=== PATIENT | female | born 1950 | race Caucasian/White ===

== ENCOUNTER 2020-03-16 08:48 | Outpatient (REF) | payer MEDICARE, SELFPAY ==
[2020-03-16 09:51] LABS: MANUAL DIFF FLAG NO
[2020-03-16 09:55] LABS: Basophils Absolute Auto 0.1 X10*3/uL (0.0-0.2); Basophils Percent Auto 0.8 % (0-2); Eosinophils Absolute Auto 0.4 X10*3/uL (0.0-0.4); Eosinophils Percent Auto 4.3 % (0-4); Hematocrit 41.6 % (37-47); Hemoglobin 13.6 g/dl (12.0-16.0); Imm Gran Abs Auto 0.05 X10*3/uL (0.00-0.03); Imm Gran Pct Auto 0.6 % (0.0-0.4); Lymphocytes Absolute Auto 2.1 X10*3/uL (1.2-4.9); Lymphocytes Percent Auto 23.5 % (20-40); Mean Corpuscular HGB Conc 32.7 g/dl (31.0-35.0); Mean Corpuscular Hemoglobin 28.3 pg (27.0-33.0); Mean Corpuscular Volume 86.5 fL (80-98); Mean Platelet Volume 8.8 fL (9.4-12.3); Monocytes Absolute Auto 0.6 X10*3/uL (0.1-1.2); Monocytes Percent Auto 6.2 % (2-11); Neutrophils Absolute Auto 5.8 X10*3/uL (2.0-8.3); Neutrophils Percent Auto 64.6 % (45-73); Platelet Count 414 X10*3/uL (160-400); Red Blood Count 4.81 X10*6/uL (4.20-5.50); Red Cell Distribution Width 13.7 % (11.0-16.0); White Blood Count 8.9 X10*3/uL (4.8-10.8)
[2020-03-16 10:24] LABS: Alanine Aminotransferase 21 U/L (0-31); Albumin Level 4.4 g/dL (3.5-5.0); Alkaline Phosphatase 84 U/L (39-117); Anion Gap 12 (12-20); Aspartate Amino Transferase 23 U/L (5-31); Bilirubin Total 0.5 mg/dL (0.0-1.0); Blood Urea Nitrogen 15 mg/dL (9-16); Calcium 9.9 mg/dL (8.4-10.2); Carbon Dioxide 31 mmol/L (22-29); Chloride 104 mmol/L (96-108); Cholesterol 206 mg/dL; Estimated Glomerular Filt Rate > 60; Glucose Random 107 mg/dL (60-115); HDL Cholesterol 48 mg/dL; LDL Cholesterol Calculated 139 mg/dl; Potassium 5.2 mmol/l (3.3-5.1); Sodium 142 mmol/L (135-145); Total Protein 7.4 g/dL (6.5-8.0); Triglycerides 97 mg/dL
[2020-03-16 10:58] LABS: Folate 12.1 ng/mL (> or = 4.0); Free T4 (Free Thyroxine) 1.15 ng/dL (0.71-1.85); Thyroid Stimulating Hormone 0.84 uIU/mL (0.32-4.0); Vitamin B12 651 pg/mL (200-900); Vitamin D 25-OH Total 12.9 ng/mL (>30)
== END 2020-03-16 08:49 | disposition home or self-care (01) ==
LOC: HO.LAB 08:48
PROVIDERS: Visit Provider Internal Medicine
DX: E78.00 Pure hypercholesterolemia, unspecified (principal)
CPT/HCPCS: 36415; 80053; 80061; 82306; 82607; 82746; 84439; 84443; 85025

== ENCOUNTER 2020-03-20 12:25 | Outpatient (REF) | payer MEDICARE, SELFPAY ==
--- NOTE | 2020-03-20 12:34 | XR_ITS ---
EXAMINATION: RIGHT KNEE PAIN CLINICAL INFORMATION: Pain COMPARISON: None TECHNIQUE: 4 views right knee FINDINGS: Bone alignment is normal. No fracture or dislocation is seen. There are degenerative changes of the medial femoral tibial joint with joint space narrowing and osteophyte formation. Joint spaces are otherwise normal. There is a small joint effusion. XR/XR shoulder RT min 2V IMPRESSION: Arthritis at the medial femoral tibial joint. EXAMINATION: Bilateral shoulder x-ray CLINICAL INFORMATION: Pain COMPARISON: None. TECHNIQUE: 4 views each shoulder FINDINGS: Right: Bone alignment is normal. No fracture or dislocation is seen. The glenohumeral joint is normal. There is mild arthritis at the acromioclavicular joint. Soft tissues are unremarkable. Left: Bone alignment is normal. No fracture or dislocation is seen. The glenohumeral joint is normal. There is mild arthritis at the acromioclavicular joint. Soft tissues are unremarkable. IMPRESSION: Mild arthritis at the bilateral acromioclavicular joints.
--- NOTE | 2020-03-20 12:34 | XR_ITS ---
EXAMINATION: RIGHT KNEE PAIN CLINICAL INFORMATION: Pain COMPARISON: None TECHNIQUE: 4 views right knee FINDINGS: Bone alignment is normal. No fracture or dislocation is seen. There are degenerative changes of the medial femoral tibial joint with joint space narrowing and osteophyte formation. Joint spaces are otherwise normal. There is a small joint effusion. XR/XR shoulder LT min 2V IMPRESSION: Arthritis at the medial femoral tibial joint. EXAMINATION: Bilateral shoulder x-ray CLINICAL INFORMATION: Pain COMPARISON: None. TECHNIQUE: 4 views each shoulder FINDINGS: Right: Bone alignment is normal. No fracture or dislocation is seen. The glenohumeral joint is normal. There is mild arthritis at the acromioclavicular joint. Soft tissues are unremarkable. Left: Bone alignment is normal. No fracture or dislocation is seen. The glenohumeral joint is normal. There is mild arthritis at the acromioclavicular joint. Soft tissues are unremarkable. IMPRESSION: Mild arthritis at the bilateral acromioclavicular joints.
--- NOTE | 2020-03-20 12:34 | XR_ITS ---
EXAMINATION: RIGHT KNEE PAIN CLINICAL INFORMATION: Pain COMPARISON: None TECHNIQUE: 4 views right knee FINDINGS: Bone alignment is normal. No fracture or dislocation is seen. There are degenerative changes of the medial femoral tibial joint with joint space narrowing and osteophyte formation. Joint spaces are otherwise normal. There is a small joint effusion. XR/XR knee RT 2V IMPRESSION: Arthritis at the medial femoral tibial joint. EXAMINATION: Bilateral shoulder x-ray CLINICAL INFORMATION: Pain COMPARISON: None. TECHNIQUE: 4 views each shoulder FINDINGS: Right: Bone alignment is normal. No fracture or dislocation is seen. The glenohumeral joint is normal. There is mild arthritis at the acromioclavicular joint. Soft tissues are unremarkable. Left: Bone alignment is normal. No fracture or dislocation is seen. The glenohumeral joint is normal. There is mild arthritis at the acromioclavicular joint. Soft tissues are unremarkable. IMPRESSION: Mild arthritis at the bilateral acromioclavicular joints.
--- NOTE | 2020-03-20 12:38 | US_ITS ---
EXAMINATION: US VENOUS ULTRASOUND WITH DOPPLER LOWER EXTREMITY, RIGHT CLINICAL INFORMATION: Swelling. COMPARISON: None. TECHNIQUE: Ultrasound of the deep veins is performed from the hip to the calf with compression sonography and color and pulse Doppler assessment. Spectral analysis with color-flow imaging is performed. FINDINGS: There is normal venous compression and respiratory variation and augmented flow. The visualized common femoral vein, superficial femoral vein, profunda femoral vein, popliteal vein, and the trifurcation region shows no evidence of deep venous thrombosis. There is no significant popliteal fossa cyst. US/US venous duplex LE RT IMPRESSION: No DVT demonstrated in the right lower extremity.
== END 2020-03-20 12:26 | disposition home or self-care (01) ==
LOC: HO.US 12:25
PROVIDERS: PCP Internal Medicine; Visit Provider Internal Medicine
DX: M25.511 Pain in right shoulder (principal); M25.512 Pain in left shoulder; M25.561 Pain in right knee; R09.89 Other specified symptoms and signs involving the circulatory and respiratory systems
CPT/HCPCS: 73030; 73560; 93971

== ENCOUNTER 2020-03-27 10:25 | Outpatient (REF) | payer MEDICARE, SELFPAY ==
--- NOTE | 2020-03-27 10:29 | MM_ITS ---
EXAMINATION: MM SCREENING DIGITAL BREAST TOMOSYNTHESIS, LEFT CLINICAL INFORMATION: Remote right mastectomy 1998. Due for yearly exam. COMPARISON: Mammography: 03/22/2019, 03/03/2018, 02/07/2017 TECHNIQUE: Digital breast tomosynthesis is performed in both the craniocaudal and mediolateral oblique views along with computer-aided detection (CAD). Synthesized 2D images are generated from the tomosynthesis. Additional exaggerated CC view is provided. FINDINGS: There are scattered areas of fibroglandular density (ACR BI-RADS breast composition Category b). There are no significant masses, abnormal calcifications, or other abnormalities. Parenchymal pattern similar to prior exams. No significant changes. MM/MM tomosynthesis screening LT IMPRESSION: No mammographic evidence of malignancy. ASSESSMENT: BI-RADS 1: Negative RECOMMENDATION: Routine annual mammography screening. This patient's information was entered into a reminder system with a target due date for their next mammogram.
== END 2020-03-27 10:26 | disposition home or self-care (01) ==
LOC: HO.MAMMO 10:25
PROVIDERS: PCP Internal Medicine; Visit Provider Internal Medicine
DX: Z12.31 Encounter for screening mammogram for malignant neoplasm of breast (principal); Z90.11 Acquired absence of right breast and nipple
CPT/HCPCS: 77067

== ENCOUNTER 2020-10-26 09:01 | Outpatient (REF) | payer MEDICARE, SELFPAY ==
[2020-10-26 10:01] LABS: MANUAL DIFF FLAG NO
[2020-10-26 10:10] LABS: Basophils Absolute Auto 0.1 X10*3/uL (0.0-0.2); Basophils Percent Auto 0.7 % (0-2); Eosinophils Absolute Auto 0.3 X10*3/uL (0.0-0.4); Eosinophils Percent Auto 3.4 % (0-4); Hematocrit 42.9 % (37-47); Hemoglobin 13.7 g/dl (12.0-16.0); Imm Gran Abs Auto 0.05 X10*3/uL (0.00-0.03); Imm Gran Pct Auto 0.6 % (0.0-0.4); Lymphocytes Absolute Auto 2.4 X10*3/uL (1.2-4.9); Mean Corpuscular HGB Conc 31.9 g/dl (31.0-35.0); Mean Corpuscular Hemoglobin 27.3 pg (27.0-33.0); Mean Corpuscular Volume 85.6 fL (80-98); Mean Platelet Volume 9.1 fL (9.4-12.3); Monocytes Absolute Auto 0.5 X10*3/uL (0.1-1.2); Monocytes Percent Auto 6.1 % (2-11); Neutrophils Absolute Auto 5.2 X10*3/uL (2.0-8.3); Neutrophils Percent Auto 61.2 % (45-73); Platelet Count 415 X10*3/uL (160-400); Red Blood Count 5.01 X10*6/uL (4.20-5.50); Red Cell Distribution Width 13.8 % (11.0-16.0); White Blood Count 8.4 X10*3/uL (4.8-10.8)
[2020-10-26 10:37] LABS: Alanine Aminotransferase 26 U/L (0-31); Albumin Level 4.3 g/dL (3.5-5.0); Alkaline Phosphatase 85 U/L (39-117); Anion Gap 14 (12-20); Aspartate Amino Transferase 29 U/L (5-31); Bilirubin Total 0.6 mg/dL (0.0-1.0); Blood Urea Nitrogen 11 mg/dL (9-16); Calcium 10.4 mg/dL (8.4-10.2); Carbon Dioxide 26 mmol/L (22-29); Chloride 104 mmol/L (96-108); Cholesterol 228 mg/dL; Estimated Glomerular Filt Rate > 60; Glucose Random 105 mg/dL (60-115); HDL Cholesterol 44 mg/dL; LDL Cholesterol Calculated 159 mg/dl; Sodium 139 mmol/L (135-145); Total Protein 7.2 g/dL (6.5-8.0); Triglycerides 129 mg/dL
[2020-10-26 10:59] LABS: Free T4 (Free Thyroxine) 1.11 ng/dL (0.71-1.85)
[2020-10-26 11:06] LABS: Folate 16.9 ng/mL (> or = 4.0); Vitamin B12 622 pg/mL (200-900)
== END 2020-10-26 09:02 | disposition home or self-care (01) ==
LOC: HO.LAB 09:01
PROVIDERS: PCP Internal Medicine; Visit Provider Internal Medicine
DX: E78.00 Pure hypercholesterolemia, unspecified (principal)
CPT/HCPCS: 36415; 80053; 80061; 82306; 82607; 82746; 84439; 84443; 85025

== ENCOUNTER 2021-08-08 09:24 | Outpatient (REF) | payer MEDICARE, SELFPAY ==
--- NOTE | ~2021-08-08 | MM_ITS ---
EXAMINATION: BONE DENSITOMETRY CLINICAL INDICATION: Other specified disorders of bone density and structure. COMPARISON: Previous BD dated 02/16/2019 and baseline BD dated 02/07/2012. TECHNIQUE: Using a [employer] DXA System (software version: 13.1) manufactured by [employer], dual-energy x-ray absorptiometry was performed of the lumbar spine and left hip. The images are of good technical quality. Summary results are attached. FINDINGS: AP SPINE L1-L4: Current: BMD 1.004 g/cm2, Z-score 0.0, T-score -1.5, osteopenia, 1.8% increase from previous, 1.3% increase from baseline (<5% change is not significant). Prior: BMD 0.986 g/cm2. Baseline: BMD 0.991 g/cm2. LEFT FEMUR, NECK: Current: BMD 0.716 g/cm2, Z-score -0.7, T-score -2.3, osteopenia. Prior: BMD 0.806 g/cm2. Baseline: BMD 0.815 g/cm2. LEFT FEMUR, TOTAL: Current: BMD 0.763 g/cm2, Z-score -0.5, T-score -1.9, osteopenia, 11.8% decrease from previous, 12.1% decrease from baseline (<5% change is not significant). Prior: BMD 0.865 g/cm2. Baseline: BMD 0.868 g/cm2. IDENTIFIED RISK FACTORS: Height loss, menopause. HISTORY OF FRACTURE: None listed. MEDICATIONS: Calcium supplements or multivitamin, vitamin D, ERT/SERMS. MM/XR DEXA axial skeleton IMPRESSION: 1. DIAGNOSIS: Osteopenia based on the lowest T-score value of -2.3 in the femoral neck applying World Health Organization criteria. 2. 10-YEAR FRACTURE RISK PREDICTION, FRAX: Major osteoporotic fracture (clinical spine, forearm, hip or shoulder) 14.0%. Hip fracture 3.5%. 3. Treatment Recommendations: NOF guidelines recommend consideration for treatment in postmenopausal women and men age 50 and older presenting with the following: -A hip or vertebral (clinical or morphometric) fracture. -T-score less than or equal to -2.5 at the femoral neck or spine after appropriate evaluation to exclude secondary causes. -Low bone mass at the hip or spine and a 10-year fracture probability by FRAX of greater than or equal to 3% for hip fracture or greater than or equal to 20% for major osteoporotic fracture based on the [place] adapted WHO algorithm. 4. Other Recommendations: All treatment decisions require clinical judgment and consideration of individual patient factors, including patient preferences, comorbidities, previous drug use, risk factors not captured in the FRAX model (e.g. frailty, falls, vitamin D deficiency, increased bone turnover, interval significant decline in bone density) and possible under or overestimation of fracture risk by FRAX. Additional medical evaluation for secondary cause of low bone mineral density may be appropriate. FUTURE SCAN RECOMMENDATION: People with diagnosed cases of osteoporosis or at high risk for fracture should have regular bone mineral density tests. For patients eligible for Medicare, routine testing is allowed once every 2 years. The testing frequency can be increased to one year for patients who have rapidly progressing disease, those who are receiving or discontinuing medical therapy to restore bone mass, or have additional risk factors.
--- NOTE | ~2021-08-08 | MM_ITS ---
EXAMINATION: MM SCREENING DIGITAL BREAST TOMOSYNTHESIS, LEFT CLINICAL INFORMATION: Due for yearly. Screening. Prior history right mastectomy, 1998. COMPARISON: Mammography: 03/27/2020, 03/22/2019, 03/03/2018 TECHNIQUE: Digital breast tomosynthesis is performed in both the craniocaudal and mediolateral oblique views along with computer-aided detection (CAD). Synthesized 2D images are generated from the tomosynthesis. Additional exaggerated left CC view is provided. FINDINGS: There are scattered areas of fibroglandular density (ACR BI-RADS breast composition Category b). There are no significant masses, abnormal calcifications, or other abnormalities. No developing density or architectural abnormality or significant change from prior exams. MM/MM tomosynthesis screening LT IMPRESSION: No mammographic evidence of malignancy. ASSESSMENT: BI-RADS 1: Negative RECOMMENDATION: Routine annual mammography screening. This patient's information was entered into a reminder system with a target due date for their next mammogram.
== END 2021-08-08 09:25 | disposition home or self-care (01) ==
LOC: HO.MAMMO 09:24
PROVIDERS: PCP Internal Medicine; Visit Provider Internal Medicine
DX: Z12.31 Encounter for screening mammogram for malignant neoplasm of breast (principal); Z90.11 Acquired absence of right breast and nipple; M85.80 Other specified disorders of bone density and structure, unspecified site; R29.890 Loss of height; Z78.0 Asymptomatic menopausal state; Z79.810 Long term (current) use of selective estrogen receptor modulators (SERMs)
CPT/HCPCS: 77063; 77067; 77080

== ENCOUNTER 2021-08-17 07:26 | Outpatient (REF) | payer MEDICARE, SELFPAY ==
--- NOTE | ~2021-08-17 | XR_ITS ---
EXAMINATION: XR CHEST CLINICAL INFORMATION: Shortness of breath COMPARISON: Previous chest x-ray May 2008 TECHNIQUE: 2 views of the chest were obtained. FINDINGS: No significant abnormality is noted involving the heart, lungs, mediastinum, bony thorax or soft tissues. XR/XR chest 2V IMPRESSION: Unremarkable examination.
[2021-08-17 07:45] LABS: MANUAL DIFF FLAG NO
--- NOTE | 2021-08-17 07:46 | ECG_ITS ---
Test Reason : R06.02 SOB Blood Pressure : / mmHG Vent. Rate : 089 BPM Atrial Rate : 089 BPM P-R Int : 172 ms QRS Dur : 088 ms QT Int : 384 ms P-R-T Axes : 068 -09 145 degrees QTc Int : 467 ms Normal sinus rhythm Septal infarct , age undetermined Nonspecific ST abnormality Abnormal ECG When compared with ECG of 13-JUN-2011 07:38, Nonspecific T wave abnormality, worse in Lateral leads Referred By: Rolo Richards Electronically Signed By:RAMESH PINA MD
[2021-08-17 08:19] LABS: Basophils Absolute Auto 0.1 X10*3/uL (0.0-0.2); Basophils Percent Auto 0.9 % (0-2); Eosinophils Absolute Auto 0.4 X10*3/uL (0.0-0.4); Eosinophils Percent Auto 4.8 % (0-4); Hematocrit 39.4 % (37.0-47.0); Hemoglobin 12.9 g/dl (12.0-16.0); Imm Gran Abs Auto 0.04 X10*3/uL (0.00-0.03); Imm Gran Pct Auto 0.5 % (0.0-0.4); Lymphocytes Absolute Auto 2.6 X10*3/uL (1.2-4.9); Lymphocytes Percent Auto 33.2 % (20-40); Mean Corpuscular HGB Conc 32.7 g/dl (31.0-35.0); Mean Corpuscular Hemoglobin 28.1 pg (27.0-33.0); Mean Corpuscular Volume 85.8 fL (80.0-98.0); Mean Platelet Volume 8.9 fL (9.4-12.3); Monocytes Absolute Auto 0.5 X10*3/uL (0.1-1.2); Monocytes Percent Auto 6.1 % (2-11); Neutrophils Absolute Auto 4.3 x10*3/uL (2.0-8.3); Neutrophils Percent Auto 54.5 % (45-73); Platelet Count 363 X10*3/uL (160-400); Red Blood Count 4.59 X10*6/uL (4.20-5.50); Red Cell Distribution Width 13.9 % (11.0-16.0); White Blood Count 7.9 X10*3/uL (4.8-10.8)
[2021-08-17 08:22] LABS: Estimated Average Glucose 114 mg/dL; Hemoglobin A1c % 5.6 %
[2021-08-17 08:38] LABS: Alanine Aminotransferase 19 U/L (0-31); Alkaline Phosphatase 74 U/L (39-117); Anion Gap 12 (12-20); Aspartate Amino Transferase 20 U/L (5-31); Bilirubin Total 0.4 mg/dL (0.0-1.0); Blood Urea Nitrogen 14 mg/dL (9-16); Calcium 9.7 mg/dL (8.4-10.2); Carbon Dioxide 27 mmol/L (22-29); Chloride 107 mmol/L (96-108); Cholesterol 208 mg/dL; Estimated Glomerular Filt Rate > 60; Glucose Random 101 mg/dL (60-115); HDL Cholesterol 45 mg/dL; LDL Cholesterol Calculated 148 mg/dl; Potassium 4.3 mmol/L (3.3-5.1); Sodium 142 mmol/L (135-145); Triglycerides 76 mg/dL
[2021-08-17 08:45] LABS: B Type Natriuretic Peptide 39 pg/mL (<100)
[2021-08-17 08:58] LABS: Free T4 (Free Thyroxine) 1.05 ng/dL (0.71-1.85); Thyroid Stimulating Hormone 1.46 uIU/mL (0.32-4.0)
[2021-08-17 09:50] LABS: Folate 17.5 ng/mL (> or = 4.0); Vitamin B12 561 pg/mL (200-900)
== END 2021-08-17 07:27 | disposition home or self-care (01) ==
LOC: HO.XRAY 07:26
PROVIDERS: PCP Internal Medicine; Visit Provider Internal Medicine
DX: R06.02 Shortness of breath (principal); E78.00 Pure hypercholesterolemia, unspecified; R73.02 Impaired glucose tolerance (oral)
CPT/HCPCS: 36415; 71046; 80053; 80061; 82607; 82746; 83036; 83880; 84439; 84443; 85025; 93005

== ENCOUNTER 2022-08-15 11:23 | Outpatient (REF) | payer MEDICARE, SELFPAY ==
--- NOTE | ~2022-08-15 | MM_ITS ---
EXAMINATION: MM SCREENING DIGITAL BREAST TOMOSYNTHESIS, LEFT CLINICAL INFORMATION: Screening. Asymptomatic. Status post right mastectomy. COMPARISON: Mammography: 08/08/2021 and studies dating back to 12/08/2013. TECHNIQUE: Digital breast tomosynthesis is performed in both the craniocaudal and mediolateral oblique views along with computer-aided detection (CAD). Synthesized 2D images are generated from the tomosynthesis. FINDINGS: The breasts are heterogeneously dense, which may obscure small masses (ACR BI-RADS breast composition Category c). About the inferior aspect of the left breast, approximately 3 cm from the nipple, there is an oblong circumscribed density increasing in size measuring approximately 8 x 4 x 4 mm in size, for which spot compression views and possible ultrasound are recommended. MM/MM tomosynthesis screening LT IMPRESSION: Left breast density for further evaluation. ASSESSMENT: BI-RADS 0: Incomplete - Need additional imaging evaluation. RECOMMENDATION: 1. Additional views of the left breast. 2. Targeted ultrasound if warranted after review of the additional views. 3. Radiology department staff will contact the patient for additional imaging. This patient's information was entered into a reminder system with a target due date for their next mammogram.
== END 2022-08-15 11:24 | disposition home or self-care (01) ==
LOC: HO.MAMMO 11:23
PROVIDERS: PCP Internal Medicine; Visit Provider Internal Medicine
DX: Z12.31 Encounter for screening mammogram for malignant neoplasm of breast (principal)
CPT/HCPCS: 77063; 77067

== ENCOUNTER 2022-09-20 12:49 | Outpatient (REF) | payer MEDICARE, SELFPAY ==
--- NOTE | ~2022-09-20 | MM_ITS ---
EXAMINATION: MM DIAGNOSTIC DIGITAL BREAST TOMOSYNTHESIS, LEFT US DIAGNOSTIC ULTRASOUND BREAST, LEFT CLINICAL INFORMATION: Recall from screening for oval nodule anterior 6:00 left breast under 1 cm. Personal history remote contralateral right mastectomy, 1998. Family history breast cancer mother, sister. COMPARISON: Prior mammography exams including most recent 08/15/2022. TECHNIQUE: Digital breast tomosynthesis is performed. 2D images are generated from the tomosynthesis. The following views are obtained: Spot CC, spot MLO. Ultrasound left breast is targeted to the inferior breast using grayscale imaging and color Doppler without and with harmonics. FINDINGS: There are scattered areas of fibroglandular density (ACR BI-RADS breast composition Category b). The additional views confirm benign-appearing smooth oval nodule anterior 6:00 left breast. In retrospect, finding appears chronic, slightly increased in size over several years. Ultrasound demonstrates circumscribed anechoic cyst 7 x 4 mm 6:30 position, 3 cm from nipple. There is increased through-transmission of sound on real-time imaging and no associated color flow. There is no other cystic or solid mass. No architectural abnormality. Results are discussed with the patient at time of visit. MM/MM tomosynthesis added views L IMPRESSION: Cyst anterior inferior left breast under 1 cm corresponding to recent mammography. ASSESSMENT: BI-RADS 2: Benign RECOMMENDATION: Routine annual mammography screening. This patient's information was entered into a reminder system with a target due date for their next mammogram.
== END 2022-09-20 12:50 | disposition home or self-care (01) ==
LOC: HO.MAMMO 12:49
PROVIDERS: PCP Internal Medicine; Visit Provider Internal Medicine
DX: R92.2 Inconclusive mammogram (principal)
CPT/HCPCS: 76642; 77061; 77065

== ENCOUNTER 2022-10-03 17:46 | Emergency (ER) | payer MEDICARE, SELFPAY ==
[2022-10-03 17:53] VITALS: BP 190/102; PULSE 100; RESP 18; TEMP 36.7; O2SAT 98; BMI 29.3
--- NOTE | 2022-10-03 17:54 | ED.GENADULT ---
HPI - General Adult General Chief complaint: General Medical Stated complaint: High BP sent by urgent care Time Seen by Provider: 10/03/22 19:50 Source: patient and other (friend) Mode of arrival: ambulatory Limitations: no limitations History of Present Illness HPI narrative: 71 yo female hx of pre-HTN BP range 140/80 but not on medications - fell on Friday went to [facility] has R wrist injury and nasal bone fracture - CT head and face no ICH. She notes some mild pain since then but not severe. She went to the orthopedics office today and they found elevated HTN - no numbness, weakness, headaches, vision changes or chest pain. SHe states she had no clue until they told her. MD complaint: elevated BP asymptomatic in ortho office Onset (ago): unknown Severity: mild Pain Consistency: constant Relieving factors: none Exacerbating factors: none Associated symptoms: denies other symptoms Treatments prior to arrival: none Related Data Home Medications Medication Instructions Recorded Confirmed biotin 2,500 mcg capsule 2,500 mcg PO DAILY 05/04/21 01/23/22 cholecalciferol (vitamin D3) 25 25 mcg PO DAILY 01/23/22 01/23/22 mcg (1,000 unit) capsule relief factor 1 cap PO .QD 01/23/22 Previous Rx's Medication Instructions Recorded amoxicillin 500 mg-potassium 1 tab PO Q12H #14 tabs 01/23/22 clavulanate 125 mg tablet (Augmentin) raloxifene 60 mg tablet 60 mg PO DAILY #90 tabs 04/06/22 amlodipine 10 mg tablet 10 mg PO DAILY #30 tabs 10/03/22 Allergies Allergy/AdvReac Type Severity Reaction Status Date / Time Sulfa (Sulfonamide Allergy Unknown NKNOWN Verified 01/23/22 09:13 Antibiotics) [SULFA(SULFONAMIDE ANTIBIOTICS)] Review of Systems Review of Systems: Constitutional : No Fever, No Chills, No Fatigue ENT/Mouth : No sore throat, No Rhinorrhea Eyes: No Eye Pain, No Swelling, No Redness Cardiovascular : No Chest Pain, No SOB, No Dyspnea on Exertion Respiratory : No Cough, No Sputum Gastrointestinal : No Nausea, No Vomiting, No Diarrhea, No abdominal Pain Genitourinary : No Dysuria, No Urinary Frequency, No Hematuria, Musculoskeletal : No joint pain, No Myalgias, No Joint Swelling Skin : No Skin Lesions, No rash Neuro : No Weakness, No Numbness, No Dizziness, no Headache Psych : No Anxiety/Panic, No Depression Heme/Lymph: No Bruising, No Bleeding,No Lymphadenopathy Endocrine : No Polyuria, No Polydipsia All other systems reviewed and are negative COUNT INCLUDES THE [facility] Past Medical History Attestation statement: The following information was validated with the patient. Source: old records reviewed Medical History Alopecia History of breast cancer Hypercholesterolemia Impaired glucose tolerance Knee pain, right Medicare annual wellness visit, initial Osteopenia Overweight (BMI 25.0-29.9) Pituitary adenoma Shoulder pain, bilateral Tubular adenoma of colon Surgical History H/O right mastectomy History of arthroscopy of right knee History of cataract surgery History of cholecystectomy History of colonoscopy History of orthopedic surgery History of surgery Family History Family History (Updated 03/13/20 @ 10:12 by Giselle Escalera [facility]) Father Dementia Alcoholism Mother Congenital heart disease Cancer Sister Breast cancer Sister CAD (coronary artery disease) Social History Social History Housing: House Alcohol intake: current Alcohol intake frequency: holidays/special occasions only Patient Tobacco Use Status: Former Tobacco user Tobacco use type: Cigarette Years Smoked: quit 1997 Smoked in Last 30 Days: No e-Cigarette/Vaping Use: Never Used Second Hand Smoke Exposure: No Advance Directives: Yes Advance Directives on File: Yes Advance Directives Date on File: 05/14/21 Current occupational status: retired Cognitive needs: No Hearing needs: No Vision needs: Yes Physical Exam ED Vital Signs: Vital Signs - 24 hr 10/03/22 17:53 10/03/22 19:43 Temperature 98.1 F Pulse Rate 100 91 Respiratory Rate 18 14 Blood Pressure 190/102 H 185/101 H Pulse Oximetry 98 98 Oxygen Delivery Method Room Air BMI result Body Mass Index 29.3 Appearance: Alert. Oriented X3. No acute distress. Eyes: Pupils equal, round and reactive to light. ENT: Pharynx normal. small contusion to nasal bridge Neck: Normal inspection. Neck supple. CVS: Normal heart rate and rhythm. Pulses normal. Respiratory: No respiratory distress. Breath sounds normal. Abdomen: Soft and nontender. Skin: Skin warm and dry. Normal skin color. Normal skin turgor. Extremities: No lower extremity edema. R wrist in splint Neuro: Oriented X 3. No motor deficit. No sensory deficit. Course Course Course Narrative: This is an RME: Additional HPI, ROS, PE not included below will be deferred to primary provider. This is a [id number]-[id number]-female, no known diagnosis of hypertension, presenting to the ER for elevated blood pressure readings. Patient states on Friday she was seen at [facility] after a fall where she struck her head. She was seen at [facility] where she had head and neck imaging per patient, and xrays or her hand/wrist - told she fractured her right wrist. She was seen at the Orthopedics office and was told that her blood pressure was high. Patient denies any chest pain or shortness on breath. She admits to having headache but reports that this has been constant since her fall on Friday. Plan: Basic labs ordered. Reevaluation(s) Reevaluation #1: increased amlodipine to 10mg - continued to observe, really treating asymptomatic HTN- patient aware will go home and follow up with PCP Reevaluation #2: BP 183/99 - stable for DC Medications Administered Discontinued Medications Generic Name Dose Route Start Last Admin Trade Name Freq PRN Reason Stop Dose Admin Amlodipine Besylate 5 mg 10/03/22 20:11 10/03/22 20:31 Amlodipine Besylate 5 Mg Tablet PO 10/03/22 20:12 5 mg ONCE ONE Administration Protocol Amlodipine Besylate 5 mg 10/03/22 21:19 10/03/22 21:46 Amlodipine Besylate 5 Mg Tablet PO 10/03/22 21:20 5 mg ONCE ONE Administration Protocol Medical Decision Making Medical Decision Making [facility] Narrative: 71 yo female sent here from office for asymptomatic HTN - she has no chest pain, headache, neuro deficits I do not suspect end organ damage though she relays to me nromal BP is 140/80. at this time will start on 5mg amlodipine and obtain basic labs and EKG, she can follow up with her PCP Differential Diagnosis Differential Diagnoses: The differential diagnosis associated with the presentation includes asymptomatic HTN, renal failure Lab Data [facility] Lab Attestation statement: I reviewed the patient's lab results. 10/03/22 18:06 10/03/22 18:06 Labs: Lab Results 10/03/22 10/03/22 Range/Units 18:06 18:06 WBC 10.7 (4.8-10.8) X10*3/uL RBC 4.77 (4.20-5.50) X10*6/uL Hgb 13.6 (12.0-16.0) g/dl Hct 41.1 (37.0-47.0) % MCV 86.2 (80.0-98.0) fL MCH 28.5 (27.0-33.0) pg MCHC 33.1 (31.0-35.0) g/dl RDW 13.5 (11.0-16.0) % Plt Count 376 (160-400) X10*3/uL MPV 8.9 L (9.4-12.3) fL Immature Gran % (Auto) 0.5 H (0.0-0.4) % Neut % (Auto) 66.1 (45-73) % Lymph % (Auto) 24.7 (20-40) % [place] % (Auto) 5.4 (2-11) % Eos % (Auto) 2.6 (0-4) % Baso % (Auto) 0.7 (0-2) % Lymph # (Auto) 2.7 (1.2-4.9) X10*3/uL [place] # (Auto) 0.6 (0.1-1.2) X10*3/uL Eos # (Auto) 0.3 (0.0-0.4) X10*3/uL Baso # (Auto) 0.1 (0.0-0.2) X10*3/uL Abs Immat Gran (auto) 0.05 H (0.00-0.03) X10*3/uL Absolute Neuts (auto) 7.1 (2.0-8.3) x10*3/uL Absolute Nucleated RBC 0.000 (0.0-0.012) X10*3/uL Nucleated RBC % (auto) 0.0 (0.0-0.2) /100WBC Sodium 142 (135-145) mmol/L Potassium 4.3 (3.3-5.1) mmol/L Chloride 106 (96-108) mmol/L Carbon Dioxide 26 (22-29) mmol/L Anion Gap 14 (12-20) BUN 11 (9-16) mg/dL Creatinine 0.81 (0.5-1.4) mg/dL Estim Creat Clear Calc 58.5 Estimated GFR > 60 Random Glucose 105 (60-115) mg/dL Calcium 10.2 (8.4-10.2) mg/dL Total Bilirubin 0.5 (0.0-1.0) mg/dL Direct Bilirubin 0.1 (0.0-0.5) mg/dL AST 22 (5-31) U/L ALT 17 (0-31) U/L Alkaline Phosphatase 82 (39-117) U/L Total Protein 7.4 (6.5-8.0) g/dL Albumin 4.1 (3.5-5.0) g/dL Independent Interpretation I performed an independent interpretation of an: EKG Interpretation: Rate: 87 Rhythm: NSR [employer]: left Normal P waves. Normal SARA. Normal QRS complex. Poor R wave progression ST T wave : nonspecific lateral changes, no GLADYS qTC: normal prior studies: no acute ischemia unchanged from prior The study has been interpreted contemporaneously by me. . Independent Historian Clinical information obtained from an independent historian. History obtained from or confirmed by: Friend External Record Review External record reviewed: Office record Prescription Management I considered prescription management with: Other (HTN) Discharge Plan Discharge Clinical Impression: Hypertension Patient Disposition: Home, Self-Care Instructions: Chronic Hypertension (ED) Additional Instructions: return to ED for any worsening symptoms or concerns decrease your salt intake. follow up with your doctor. return for severe headaches, numbness, weakness, chest pain or any other concerns. Prescriptions: New amlodipine 10 mg tablet 10 mg PO DAILY Qty: 30 1RF No Action raloxifene 60 mg tablet 60 mg PO DAILY Qty: 90 3RF cholecalciferol (vitamin D3) 25 mcg (1,000 unit) capsule 25 mcg PO DAILY relief factor 1 cap PO .QD amoxicillin-pot clavulanate [Augmentin] 500-125 mg tablet 1 tab PO Q12H Qty: 14 0RF biotin 2,500 mcg capsule 2,500 mcg PO DAILY Referrals: Po,Rolo Muir MD [Primary Care Provider] - 1 day
[2022-10-03 18:30] LABS: MANUAL DIFF FLAG NO
[2022-10-03 18:32] LABS: Basophils Absolute Auto 0.1 X10*3/uL (0.0-0.2); Basophils Percent Auto 0.7 % (0-2); Eosinophils Absolute Auto 0.3 X10*3/uL (0.0-0.4); Eosinophils Percent Auto 2.6 % (0-4); Hematocrit 41.1 % (37.0-47.0); Hemoglobin 13.6 g/dl (12.0-16.0); Imm Gran Abs Auto 0.05 X10*3/uL (0.00-0.03); Imm Gran Pct Auto 0.5 % (0.0-0.4); Lymphocytes Absolute Auto 2.7 X10*3/uL (1.2-4.9); Lymphocytes Percent Auto 24.7 % (20-40); Mean Corpuscular HGB Conc 33.1 g/dl (31.0-35.0); Mean Corpuscular Hemoglobin 28.5 pg (27.0-33.0); Mean Corpuscular Volume 86.2 fL (80.0-98.0); Mean Platelet Volume 8.9 fL (9.4-12.3); Monocytes Absolute Auto 0.6 X10*3/uL (0.1-1.2); Monocytes Percent Auto 5.4 % (2-11); Neutrophils Absolute Auto 7.1 x10*3/uL (2.0-8.3); Neutrophils Percent Auto 66.1 % (45-73); Platelet Count 376 X10*3/uL (160-400); Red Blood Count 4.77 X10*6/uL (4.20-5.50); Red Cell Distribution Width 13.5 % (11.0-16.0); White Blood Count 10.7 X10*3/uL (4.8-10.8)
[2022-10-03 19:14] LABS: Alanine Aminotransferase 17 U/L (0-31); Albumin Level 4.1 g/dL (3.5-5.0); Alkaline Phosphatase 82 U/L (39-117); Anion Gap 14 (12-20); Aspartate Amino Transferase 22 U/L (5-31); Bilirubin Direct 0.1 mg/dL (0.0-0.5); Bilirubin Total 0.5 mg/dL (0.0-1.0); Blood Urea Nitrogen 11 mg/dL (9-16); Calcium 10.2 mg/dL (8.4-10.2); Carbon Dioxide 26 mmol/L (22-29); Chloride 106 mmol/L (96-108); Creatinine Clr Calc Pharmacy 58.5; Estimated Glomerular Filt Rate > 60; Glucose Random 105 mg/dL (60-115); Potassium 4.3 mmol/L (3.3-5.1); Sodium 142 mmol/L (135-145); Total Protein 7.4 g/dL (6.5-8.0)
[2022-10-03 19:43] VITALS: BP 185/101; PULSE 91; RESP 14; O2SAT 98
--- NOTE | 2022-10-03 20:18 | ECG_ITS ---
Test Reason : FALL Blood Pressure : / mmHG Vent. Rate : 087 BPM Atrial Rate : 087 BPM P-R Int : 174 ms QRS Dur : 084 ms QT Int : 396 ms P-R-T Axes : 064 -13 056 degrees QTc Int : 476 ms Normal sinus rhythm Possible Anteroseptal infarct (cited on or before 17-AUG-2021) Abnormal ECG When compared with ECG of 17-AUG-2021 07:48, No significant change was found Referred By: Toña Stewart Electronically Signed By:CARIDAD AMES
[2022-10-03] MEDS: amLODIPine Besylate 5 MG TABLET PO ×2 (20:31→21:46)
== END 2022-10-03 22:17 | disposition home or self-care (01) ==
PROVIDERS: Physician Assistant Medical; Emergency Provider Emergency Medicine; PCP Internal Medicine
DX: I10 Essential (primary) hypertension (principal); E78.00 Pure hypercholesterolemia, unspecified; Z85.3 Personal history of malignant neoplasm of breast; Z87.891 Personal history of nicotine dependence; Z79.899 Other long term (current) drug therapy
CPT/HCPCS: 36415; 80048; 80076; 85025; 93005; 99283; 99284

== ENCOUNTER → 2022-10-21 08:46 | Outpatient (REF) | payer MEDICARE, SELFPAY ==
--- NOTE | 2022-10-21 08:50 | CA_ITS ---
Acquisition Time: 2022-10-21 08:59:52 Total Exercise Time: 00:02:25 Test Indications: CP HTN Medications: AMLODIPINE Protocol: BUDDY Max HR: 146 BPM 98% of Pred: 148 BPM Max BP: 164/090 mmHG Max Work Load: 4.6 METS Exercise stress test exercise 2 min 25 sec of Buddy protocol achieivng 95% MPHR, with moderate to severe SOB, no chest discomfort, with isolated PVCs , ventricular bigemey, and four beat ventricular run, with resting hypertension, normotensive response to exercise, without EKG changes for ischemia. Test reviewed with Dr. Ames. Recommend pharm test to PCP if further evaluation is required. Abnormal study. If clinically indicated, consider repeating with nuclear imaging. Referred By: Rolo Richards Overread By: CARIDAD AMES
== END ==
LOC: HO.CARD 08:46
PROVIDERS: Visit Provider Internal Medicine
DX: R06.02 Shortness of breath (principal)
CPT/HCPCS: 93017

== ENCOUNTER → 2022-10-21 08:50 | Outpatient (BNV) | payer MEDICARE, SELFPAY | PROVIDERS: Visit Provider Internal Medicine | DX: R06.02 Shortness of breath (principal); R07.9 Chest pain, unspecified | CPT/HCPCS: 93016; 93018 ==

== ENCOUNTER 2023-01-27 09:52 | Outpatient (AMB) | payer MEDICARE, SELFPAY ==
[2023-01-27 09:54] VITALS: BP 146/78; PULSE 102; O2SAT 96; BMI 28.0
--- NOTE | 2023-01-27 09:55 | AM.OFFVISMDC ---
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 Required: No Allergies Sulfa (Sulfonamide Antibiotics) [SULFA(SULFONAMIDE ANTIBIOTICS)] Allergy (Unknown, Verified 01/27/23 09:55) NKNOWN amlodipine Adverse Reaction (Intermediate, Verified 01/27/23 09:55) Leg swelling Medication List - Last Reconciled 01/27/23 by Rolo Richards MD biotin 2,500 mcg PO DAILY cholecalciferol (vitamin D3) 25 mcg PO DAILY [golo release PO .QD] lisinopril 20 mg PO DAILY raloxifene 60 mg PO DAILY HPI [facility] G0439 DIscuss/Bill ACP HPI Details 72-year-old overweight female with history of hypertension hypercholesterolemia impaired glucose tolerance coming in for an annual well visit. Last seen in September 2022. Patient is due for colonoscopy this year up-to-date with bone density up-to-date with mammogram. Patient had some problems with shortness of breath on exertion and stress test was done and has been advised f pharmacological stress test. L foot stubbed 4 and 5th toe- no xray [facility] Medical History (Updated 01/27/23 @ 10:42 by Rolo Richards MD) Blood pressure elevated without history of HTN Alopecia Medicare annual wellness visit, initial Knee pain, right Shoulder pain, bilateral Overweight (BMI 25.0-29.9) Impaired glucose tolerance Hypercholesterolemia Osteopenia Pituitary adenoma Tubular adenoma of colon History of breast cancer Surgical History History of surgery History of orthopedic surgery History of cataract surgery History of colonoscopy History of arthroscopy of right knee H/O right mastectomy History of cholecystectomy Family History (Updated 10/09/22 @ 16:09 by Flor Joy CMA) Father Dementia Alcoholism Mother Congenital heart disease Cancer Sister Breast cancer Sister CAD (coronary artery disease) Social History (Updated 01/27/23 @ 10:43 by Rolo Richards MD) Housing: House Alcohol intake: current Alcohol intake frequency: holidays/special occasions only Patient Tobacco Use Status: Former Tobacco user Tobacco use type: Cigarette Years Smoked: quit 1996 e-Cigarette/Vaping Use: Never Used Second Hand Smoke Exposure: No Advance Directives Date on File: 05/14/21 Current occupational status: retired Cognitive needs: No Hearing needs: No Vision needs: Yes Questionnaire Medicare Wellness Checkup [age] What gender do you identify with?: female During the past 4 weeks, how much have you been bothered by emotional problems such as feeling anxious, depressed, irritable, sad or downhearted, and blue?: not at all During the past 4 weeks, has your physical & emotional health limited your social activities with family, friends, neighbors, or groups?: extremely (COVID ) During the past 4 weeks, how much bodily pain have you generally had?: moderate pain During the past 4 weeks, was someone available to help you if you needed & wanted help?: yes, as much as I wanted During the past 4 weeks, what was the hardest physical activity you could do for at least 2 minutes?: moderate Can you get to places out of walking distance without help? (For eg., can you travel alone on buses, taxis or drive your car?): Yes Can you go shopping for groceries or clothes without someone's help?: Yes Can you prepare your own meals?: Yes Can you do your housework without help?: Yes Because of any health problems, do you need the help of another person with your personal care needs such as eating, bathing, dressing or getting around the house?: No Can you handle your own money without help?: Yes During the past 4 weeks, how would you rate your health in general?: fair (COVID ) During the past 4 weeks how have things been going for you?: good & bad parts about equal (COVID ) Are you having difficulties driving your car?: no Do you always fasten your seat belt when you are in a car?: yes, usually During past 4 weeks, have you been bothered by the following: never: Falling or dizzy when standing up, Sexual problems?, Trouble eating well?, Teeth or denture problems? and Problems using the telephone? and sometimes: Tiredness or fatigue? Have you fallen 2 or more times in the past year?: No Are you afraid of falling?: No Are you a smoker?: no During the past 4 weeks, how many drinks of wine, beer, or other alcoholic beverages did you have?: 2-5 drinks per week Do you exercise for about 20 minutes 3 or more times a week?: no, I usually do not exercise this much Have you been given information to help with the following?: no: Hazards in your house that might hurt you? and no: Keeping track of your medications? How often do you have trouble taking medicines the way you have been told to take them?: I always take medicine as prescribed How confident are you that you can control & manage most of your health problems?: very confident What is your race?: White PHQ-9 Over the last 2 weeks, how often have you been bothered by any of the following problems? 1. Little interest or pleasure in doing things: not at all 2. Feeling down, depressed, or hopeless: not at all 3. Trouble falling or staying asleep, or sleeping too much: not at all 4. Feeling tired or having little energy: not at all 5. Poor appetite or overeating: not at all 6. Feeling bad about yourself - or that you are a failure or have let yourself or your family down: not at all 7. Trouble concentrating on things, such as reading the newspaper or watching television: not at all 8. Moving or speaking so slowly that other people could have noticed. Or the opposite - being so fidgety or restless that you have been moving around a lot more than usual: not at all 9. Thoughts that you would be better off or of hurting yourself in some way: not at all Total score: 0 Depression Screening Interpretation: Negative Depression Screening Done: Yes Source: Developed by Drs. Yohan Corbett, Tanya Jacobsen, Linden Aguillon and colleagues, with an educational suzan from [employer]. Review of Systems Const Denies poor appetite and Denies weakness Eyes Denies no additional complaints ENT Reports Normal hearing present, Denies dizziness, Denies nasal congestion, Denies tinnitus and Denies sore throat Card Denies chest pain, Denies syncope, Denies rapid heart rate and Denies dyspnea Resp Denies cough and Denies dyspnea GI Denies change in stool character, Reports constipation, Denies diarrhea, Denies nausea and Denies vomiting Denies urinary frequency, Denies difficulty voiding and Denies dysuria Neuro Reports Normal hearing present, Denies confusion, Denies dizziness, Denies syncope and Denies weakness Psych Denies confusion Physical Exam Vital Signs: Last Vital Signs Pulse 102 H 01/27/23 09:54 BP 146/78 H 01/27/23 09:54 Pulse Ox 96 01/27/23 09:54 Oxygen Delivery Method Room Air 01/27/23 09:54 BMI result Body Mass Index 28.0 Const General: No confusion Orientation/consciousness: No confusion HEENT Head: Yes normocephalic Ears: external ears normal and TM's normal bilaterally Face and sinus: Yes normal facial exam Mouth: moist mucous membranes Throat: Yes tonsils normal Eyes Conjunctivae: conjunctivae normal Pupils: Equal, round and reactive pupils present and Pupil accommodation reflex normal Direct Ophthalmoscopy: normal light reflex Neck Neck: No lymphadenopathy Thyroid: Thyroid normal Chest Chest palpation & inspection: normal inspection of the chest Resp Effort & Inspection: normal respiratory effort and no audible wheezes Auscultation: clear to auscultation bilaterally, no crackles, no wheezes and lung sounds not diminished Cardio Rate: regular rate Rhythm: regular rhythm Peripheral pulses: radial pulses present and dorsalis pedis present GI Palpation (GI): no masses Auscultation: normal bowel sounds and normoactive bowel sounds Rectal Exam - Female: deferred Skin General skin exam: no rashes or lesions noted Rashes: no rashes Neuro General: No confusion Cranial nerves: Yes Equal, round and reactive pupils present and Yes Normal hearing present Cognition (Neuro): normal cognition Gait exam (Neuro): Normal gait present Motor exam (neuro): 5/5 motor strength present throughout Deep tendon reflexes (DTR's): Right brachioradialis reflex intensity grade: 2+, Left brachioradialis reflex intensity grade: 2+, Right patellar reflex intensity grade: 2+ and Left patellar reflex intensity grade: 2+ Extrem General: No edema Office Procedures Flu Questionnaire Does the patient have a severe egg allergy?: No Does the patient have severe life threatening allergies?: No Does the patient have a fever or illness today?: No Has the patient ever had Guillain-[place] Syndrome?: No Has the patient ever had any past reaction to a flu shot?: No Immunizations flu vacc [id number] 6mos up(PF) 60 mcg(15 mcgx4)/0.5 mL IM syringe Performing Provider: Rolo Richards MD Performing Location: [facility] Administered by: TAHIR Zhang on 01/27/23 10:18 Dose Route Admin Location Dispensed Lot Number Expiration Date NDC Volunteer Patient Representative 0.5 mL IM Left Deltoid 0.5 mL [id number] 10/12/23 [id number] [employer] VIS Given Date VIS Provided VIS Publication Date 01/27/23 Single Vaccine 20 Eligibility Eligibility Date Funding Source Not VFC Eligible 01/27/23 Private Assessment & Plan Assessment & Plan (1) Encounter for subsequent annual wellness visit in Medicare patient: Code(s): Z00.00 - Encounter for general adult medical examination without abnormal findings (2) Overweight (BMI 25.0-29.9): Code(s): E66.3 - Overweight Plan: Diet and exercise (3) Hypercholesterolemia: Code(s): E78.00 - Pure hypercholesterolemia, unspecified Plan: Avoid fried foods, chicken skin, eggs, butter margarine, pastries and meat. Be it pork or beef they have a lot of cholesterol LDL goal of less than 130 and triglyceride of less than 150 (4) Impaired glucose tolerance: Code(s): R73.02 - Impaired glucose tolerance (oral) Plan: Decrease the amount of carbohydrate intake, pasta, bread, rice and potatoes are all sugar and that is aside from all the sweet stuff, remember that fruits are good but they are Sweet also. (5) SOB (shortness of breath) on exertion: Code(s): R06.02 - Shortness of breath Plan: Stress test done inconclusive and has advised pharmacological stress test (6) Hypertension: Code(s): I10 - Essential (primary) hypertension Plan: Continue with blood pressure medication. Decrease salt intake and exercise patient on lisinopril 10 mg once a day (7) COVID-19 virus infection: Comment: 01/20/2023 Code(s): U07.1 - COVID-19 (8) Colonoscopy refused: Code(s): Z53.20 - Procedure and treatment not carried out because of patient's decision for unspecified reasons (9) Basal cell carcinoma: Comment: biopsy [facility]- will need surgery 12/2022 Code(s): C44.91 - Basal cell carcinoma of skin, unspecified Orders: Orders Comprehensive Met. Panel Today R73.02 - Impaired glucose tolerance (oral) Hemoglobin A1c Today R73.02 - Impaired glucose tolerance (oral) Complete Blood Count Auto Diff Today E78.00 - Pure hypercholesterolemia, unspecified Lipid Panel Today E78.00 - Pure hypercholesterolemia, unspecified Thyroid Stimulating Hormone Today E78.00 - Pure hypercholesterolemia, unspecified Vitamin B12 and Folate Today E78.00 - Pure hypercholesterolemia, unspecified Vitamin D 25-OH Total Today E78.00 - Pure hypercholesterolemia, unspecified Influenza 2540-8320 Immunization Today Z23 - Encounter for immunization Free T4 (Free Thyroxine) Today E78.00 - Pure hypercholesterolemia, unspecified Medications: Changed From lisinopril 10 mg PO DAILY 30 tabs 5RF I10 - Essential (primary) hypertension To lisinopril 20 mg PO DAILY 30 tabs 5RF I10 - Essential (primary) hypertension Quality Reporting (2019) Depression/Bipolar (159/160/161/177) PHQ-9: Total score: 0 Coding Level of Care Code Medicare Subsequent (G0439) Diagnoses Encounter for subsequent annual wellness visit in Medicare patient Z00.00 Overweight (BMI 25.0-29.9) E66.3 Hypercholesterolemia E78.00 Impaired glucose tolerance R73.02 SOB (shortness of breath) on exertion R06.02 Hypertension I10 COVID-19 virus infection U07.1 Colonoscopy refused Z53.20 Basal cell carcinoma C44.91
== END 2023-01-27 10:57 | disposition home or self-care (01) ==
PROVIDERS: Visit Provider Internal Medicine
DX: Z23 Encounter for immunization (principal)
CPT/HCPCS: 90471; 90686; G0439

== ENCOUNTER 2023-02-19 09:27 | Outpatient (REF) | payer MEDICARE, SELFPAY ==
--- NOTE | ~2023-02-19 | XR_ITS ---
EXAMINATION: XR CHEST CLINICAL INFORMATION: Cough COMPARISON: Chest radiographs of 08/17/2021 and 06/02/2008. TECHNIQUE: 2 views of the chest. FINDINGS: The lungs are well-inflated. There is no gross pneumothorax. Degenerative changes in the thoracic spine. Surgical clips in the upper abdomen. No pleural effusion. Curvilinear opacity in the right infracardiac region. There is increased density and prominence of the right hilum when compared with exam of 06/02/2008. XR/XR chest 2V IMPRESSION: Curvilinear opacity in the right infracardiac region. There is increased density and prominence of the right hilum when compared with exam of 06/02/2008. CT scan of the chest recommended for further evaluation. This study was presented today February 24, 2023 at 12:52 PM for interpretation. PSA staff will provide results to referring provider at this time.
== END 2023-02-19 09:28 | disposition home or self-care (01) ==
LOC: HO.XRAY 09:27
PROVIDERS: PCP Internal Medicine; Visit Provider Internal Medicine
DX: R05.9 Cough, unspecified (principal)
CPT/HCPCS: 71046

== ENCOUNTER 2023-03-25 09:11 | Outpatient (REF) | payer MEDICARE, SELFPAY ==
[2023-03-25 09:32] LABS: MANUAL DIFF FLAG NO
[2023-03-25 09:40] LABS: Basophils Absolute Auto 0.1 X10*3/uL (0.0-0.2); Basophils Percent Auto 0.8 % (0-2); Eosinophils Absolute Auto 0.4 X10*3/uL (0.0-0.4); Eosinophils Percent Auto 5.1 % (0-4); Hematocrit 40.5 % (37.0-47.0); Hemoglobin 12.9 g/dl (12.0-16.0); Imm Gran Abs Auto 0.03 X10*3/uL (0.00-0.03); Imm Gran Pct Auto 0.4 % (0.0-0.4); Lymphocytes Absolute Auto 2.6 X10*3/uL (1.2-4.9); Lymphocytes Percent Auto 34.4 % (20-40); Mean Corpuscular HGB Conc 31.9 g/dl (31.0-35.0); Mean Corpuscular Hemoglobin 27.9 pg (27.0-33.0); Mean Corpuscular Volume 87.7 fL (80.0-98.0); Mean Platelet Volume 8.7 fL (9.4-12.3); Monocytes Absolute Auto 0.4 X10*3/uL (0.1-1.2); Monocytes Percent Auto 5.9 % (2-11); Neutrophils Percent Auto 53.4 % (45-73); Platelet Count 332 X10*3/uL (160-400); Red Blood Count 4.62 X10*6/uL (4.20-5.50); Red Cell Distribution Width 13.7 % (11.0-16.0); White Blood Count 7.5 X10*3/uL (4.8-10.8)
[2023-03-25 09:51] LABS: Estimated Average Glucose 114 mg/dL; Hemoglobin A1c % 5.6 % (<6.0)
[2023-03-25 10:10] LABS: Alanine Aminotransferase 21 U/L (0-31); Alkaline Phosphatase 80 U/L (39-117); Anion Gap 11 (12-20); Aspartate Amino Transferase 25 U/L (5-31); Bilirubin Total 0.4 mg/dL (0.0-1.0); Blood Urea Nitrogen 15 mg/dL (9-16); Calcium 9.9 mg/dL (8.4-10.2); Carbon Dioxide 26 mmol/L (22-29); Chloride 108 mmol/L (96-108); Cholesterol 213 mg/dL (<200); Estimated Glomerular Filt Rate 59; Glucose Random 101 mg/dL (60-115); HDL Cholesterol 42 mg/dL (>40); LDL Cholesterol Calculated 147 mg/dL (<100); Potassium 4.7 mmol/L (3.3-5.1); Sodium 140 mmol/L (135-145); Total Protein 7.2 g/dL (6.5-8.0); Triglycerides 120 mg/dL (<150)
[2023-03-25 10:33] LABS: Free T4 (Free Thyroxine) 0.96 ng/dL (0.71-1.85); Thyroid Stimulating Hormone 0.91 uIU/mL (0.32-4.0); Vitamin D 25-OH Total 36.6 ng/mL (>30)
[2023-03-25 10:37] LABS: Folate 11.1 ng/mL (> or = 4.0); Vitamin B12 531 pg/mL (200-900)
== END 2023-03-25 09:12 | disposition home or self-care (01) ==
LOC: HO.LAB 09:11
PROVIDERS: PCP Internal Medicine; Visit Provider Internal Medicine
DX: R73.02 Impaired glucose tolerance (oral) (principal); E78.00 Pure hypercholesterolemia, unspecified; J98.4 Other disorders of lung
CPT/HCPCS: 36415; 80053; 80061; 82306; 82607; 82746; 83036; 84439; 84443; 85025

== ENCOUNTER 2023-04-08 08:44 | Outpatient (REF) | payer MEDICARE, SELFPAY ==
--- NOTE | ~2023-04-08 | CT_ITS ---
EXAMINATION: CT CHEST WITH CONTRAST CLINICAL INFORMATION: Other nonspecific abnormal finding of lung field. Follow-up abnormal chest x-ray. COMPARISON: Previous chest x-ray February 2023 TECHNIQUE: Multidetector volumetric CT imaging of the chest was obtained after the administration of 65- mL of Omnipaque 350 intravenous contrast without immediate adverse reactions. Axial MIP volume rendering provided. Sagittal and coronal reformatted images were obtained. This CT examination was performed using dose optimization techniques as appropriate, variously including the following: *Automated exposure control *Adjustment of mA and/or kV according to patient size (this includes techniques or standardized protocols for targeted exams where dose is matched to indication/reason for exam; i.e. extremities or head) *Use of iterative reconstruction technique DLP: 118 mGy-cm FINDINGS: NONDESTRUCTIVE TESTER: Unremarkable LUNGS: 2 mm right upper lobe nodule axial image 32. 2 mm right upper lobe nodule axial image 50. 4 mm left upper lobe nodule axial image 51. 3 mm peripheral left upper lobe nodule axial image 57. 6 mm left upper lobe nodule axial image 103. 3 mm peripheral or subpleural left lower lobe nodule axial image 114. 2 mm right lower lobe nodule axial image 119. All above nodules series 7. Motion artifact at the lung bases. Heterogeneous attenuation questionable mosaic attenuation or hypoventilatory changes from airways disease at the lung bases. Curvilinear right infrahilar finding on chest x-ray may have corresponded to vertebral body bony osteophyte. MEDIASTINUM: The mediastinum is normal. PLEURA: There is no pleural effusion. No pleural mass or thickening. AXILLA: Right breast implant. No chest wall mass or enlarged axillary lymph nodes. UPPER ABDOMEN: Gallbladder has been removed. OSSEOUS STRUCTURES: Degenerative changes of the spine. 1.3 x 1.8 cm faintly sclerotic lesion in the right T6 vertebral body. CT/CT chest w IV con IMPRESSION: Small pulmonary nodules, largest measuring 5 mm. According to the UPDATED 2017 Fleischner Society recommendations, the advised follow-up imaging for less than 6 mm solid nodule: Low risk, no chest CT follow-up and high risk, optional chest CT follow-up in one year. Right infrahilar abnormality on chest x-ray may have been due to bony osteophyte. Sclerotic lesion in the T6 vertebral body. Follow-up bone scan recommended. Fleischner guidelines were followed.
[2023-04-08] MEDS: iohexoL 350 MG/ML 100 ML INFUS..BTL IV (09:29)
== END 2023-04-08 08:45 | disposition home or self-care (01) ==
LOC: HO.CT 08:44
PROVIDERS: PCP Internal Medicine; Visit Provider Internal Medicine
DX: R91.8 Other nonspecific abnormal finding of lung field (principal); J98.4 Other disorders of lung
CPT/HCPCS: 71260; Q9967

== ENCOUNTER → 2023-04-28 09:40 | Outpatient (REF) | payer MEDICARE, SELFPAY ==
--- NOTE | ~2023-04-28 | NM_ITS ---
EXAMINATION: NM BONE SCAN OF THE WHOLE BODY CLINICAL INFORMATION: Incidentally found to have sclerotic lesions involving T6 vertebral body on recent CT scan of the chest done on 04/08/2023 for evaluation of nonspecific abnormality found on earlier chest x-ray done on 02/19/2023. Past history of right-sided breast carcinoma, status post right-sided mastectomy in 1998. COMPARISON: Chest radiograph done on 02/19/[address] scan of the chest done on 04/08/2023. TECHNIQUE: Multiple gamma scintillation camera images of the whole body were performed 2.25 hours following the intravenous administration of 25 mCi Tc-99m MDP. FINDINGS: In the head, mild asymmetric increased tracer avidity is noted at left frontal region. Mild symmetric tracer avidity on either side of the midline projecting in the region of the nasal cavity likely represent nonspecific paranasal sinus disease. In the thoracic cage and upper extremities, asymmetric increased tracer avidity at the right wrist likely represent posttraumatic and/or arthritic changes. In the spine, no definite focal increased tracer avidity is present corresponding to previously documented sclerotic lesions seen at T6 vertebral body on the CT of the chest done on 04/08/2023. In the pelvis, no suspicious focal lesion. In the lower extremities, increased tracer avidity around medial aspect of both knees likely represent posttraumatic and/or arthritic changes. No other definite bony abnormalities are noted. The urinary bladder and faint visualization of both kidneys are noted. NM/NM bone scan whole body IMPRESSION: 1. No definite scintigraphic correlate is present on this planar images corresponding to prior CT scan detected sclerotic lesion at T6 vertebral body. Given the history of breast cancer, either follow-up MRI of the thoracic spine with and without contrast or whole-body PET CT study (F-18 FDG or F-18 FES if the primary tumor was estrogen receptor positive) as appropriate is recommended for further clarification. 2. Asymmetric subtle tracer avidity at left frontal anterior skull, of indeterminate etiology. Correlation with CT scan of the head may be considered for further clarification. 3. Asymmetric tracer avidities at the right wrist and medial aspect of both knees are most consistent with either posttraumatic and/or arthritic changes or combination thereof. Radiographic correlation as appropriate may be considered for further clarification. 4. Incidental note is made of symmetric increased tracer avidity on either side of the midline in the region of the paranasal sinuses, may represent mild sinusitis.
== END ==
LOC: HO.NUCMED 09:40
PROVIDERS: PCP Internal Medicine; Visit Provider Internal Medicine
DX: M89.9 Disorder of bone, unspecified (principal)
CPT/HCPCS: 78306; A9503

== ENCOUNTER 2023-05-14 08:37 | Outpatient (AMB) | payer MEDICARE, SELFPAY ==
[2023-05-14 08:43] VITALS: BP 140/70; PULSE 103; O2SAT 95; BMI 28.4
--- NOTE | 2023-05-14 08:43 | MHC.OFFVIS ---
Intake Vital Signs 05/14/23 08:43 Height 5 ft 2 in Blood Pressure Location Lt brachial Position Sitting Pulse Source Pulse Oximeter Oxygen Delivery Method Room Air Intake Visit Reasons: Hypertension Allergies Sulfa (Sulfonamide Antibiotics) [SULFA(SULFONAMIDE ANTIBIOTICS)] Allergy (Unknown, Verified 01/27/23 09:55) NKNOWN amlodipine Adverse Reaction (Intermediate, Verified 01/27/23 09:55) Leg swelling PFSH Medical History (Updated 04/09/23 @ 18:40 by Rolo Richards MD) Blood pressure elevated without history of HTN Alopecia Medicare annual wellness visit, initial Knee pain, right Shoulder pain, bilateral Overweight (BMI 25.0-29.9) Impaired glucose tolerance Hypercholesterolemia Osteopenia Pituitary adenoma Tubular adenoma of colon History of breast cancer Surgical History History of surgery History of orthopedic surgery History of cataract surgery History of colonoscopy History of arthroscopy of right knee H/O right mastectomy History of cholecystectomy Family History (Updated 10/09/22 @ 16:09 by Flor Joy CMA) Father Dementia Alcoholism Mother Congenital heart disease Cancer Sister Breast cancer Sister CAD (coronary artery disease) Social History (Updated 01/27/23 @ 10:43 by Rolo Richards MD) Housing: House Alcohol intake: current Alcohol intake frequency: holidays/special occasions only Patient Tobacco Use Status: Former Tobacco user Tobacco use type: Cigarette Years Smoked: quit 1996 e-Cigarette/Vaping Use: Never Used Second Hand Smoke Exposure: No Advance Directives Date on File: 05/14/21 Current occupational status: retired Cognitive needs: No Hearing needs: No Vision needs: Yes 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
--- NOTE | 2023-05-14 08:48 | A.OFFPC_ITS ---
Vital Signs 05/14/23 08:43 05/14/23 09:20 Height 5 ft 2 in Weight 155 lb 0.8 oz BMI 28.4 BP 140/70 H 132/80 Blood Pressure Location Lt brachial Lt brachial Position Sitting Sitting Pulse 103 H Pulse Source Pulse Oximeter Pulse Oximetry (%) 95 Oxygen Delivery Method Room Air Intake Visit Reasons: Hypertension Intake Note: Patient is here to follow up on hypertension Drug Department Worker Required: No Allergies Sulfa (Sulfonamide Antibiotics) [SULFA(SULFONAMIDE ANTIBIOTICS)] Allergy (Unknown, Verified 05/14/23 08:49) NKNOWN amlodipine Adverse Reaction (Intermediate, Verified 05/14/23 08:49) Leg swelling Tobacco use date assessed: 05/14/23 Fall risk assessment: No Falls in past year Last assessed Fall Risk: 05/14/23 Dental Screening Dental Screen Date: 05/14/23 HPI Hypertension HPI Details 72-year-old overweight female with a his tory of hypercholesterolemia impaired glucose tolerance hypertension last seen in January 2023. Patient had some problems with breathing and has been advised pharmacological stress test. Patient's colonoscopy is due this year but has refused bone density is up-to-date mammogram is up-to-date. Patient had a bone scan due to recent x-ray showing sclerosis of the bone T6 vertebral body patient has history of breast cancer 1998 no definite correlation has been advised MRI of the thoracic spine with and without contrast or whole PET-CT asymmetric tracer left frontal skull and both knees. Patient had a CT scan done in March also showing small pulmonary nodules 5 mm. has a MAy facial surgery R side of nose basal cell and colon test September 13, 2023 busy right now with tax season. Pulm nodule ff up CT hx of smoking 03/2024. with the thoracic spine advised MRI thoracic spine with and with out contrast [facility] Medical History (Updated 05/14/23 @ 09:07 by Rolo Richards MD) Breast cancer screening by mammogram Blood pressure elevated without history of HTN Alopecia Medicare annual wellness visit, initial Knee pain, right Shoulder pain, bilateral Overweight (BMI 25.0-29.9) Impaired glucose tolerance Hypercholesterolemia Osteopenia Pituitary adenoma Tubular adenoma of colon History of breast cancer Surgical History History of surgery History of orthopedic surgery History of cataract surgery History of colonoscopy History of arthroscopy of right knee H/O right mastectomy History of cholecystectomy Family History (Updated 10/09/22 @ 16:09 by Flor Joy CMA) Father Dementia Alcoholism Mother Congenital heart disease Cancer Sister Breast cancer Sister CAD (coronary artery disease) Social History (Updated 01/27/23 @ 10:43 by Rolo Richards MD) Housing: House Alcohol intake: current Alcohol intake frequency: holidays/special occasions only Patient Tobacco Use Status: Former Tobacco user Tobacco use type: Cigarette Years Smoked: 1996 e-Cigarette/Vaping Use: Never Used Second Hand Smoke Exposure: No Advance Directives Date on File: 05/14/21 Current occupational status: retired Cognitive needs: No Hearing needs: No Vision needs: Yes Questionnaire Thrive Questionnaire Date Thrive assessed: 05/14/23 AUDIT C Alcohol Use Questionnaire (AUDIT-C) 1. How often do you have a drink containing alcohol?: Monthly or less 2. How many drinks containing alcohol do you have on a typical day when you are drinking?: 1 or 2 3. How often do you have six or more drinks on one occasion?: Never Total Score: 1 LUCITA-7 AMB Questionnaire LUCITA-7 Date LUICTA - 7 assessed: 05/14/23 Source: Developed by Drs. Yohan Corbett, Tanya Jacobsen, Linden Aguillon and colleagues, with an educational suzan from [employer]. Physical exam (Primary Care) Vital Signs: Last Vital Signs Pulse 103 H 05/14/23 08:43 BP 132/80 05/14/23 09:20 Pulse Ox 95 05/14/23 08:43 Oxygen Delivery Method Room Air 05/14/23 08:43 BMI result Body Mass Index 28.4 Tobacco/Smoking Status: Tobacco use Status Tobacco use date assessed 05/14/23 05/14/23 08:51 Patient Tobacco Use Status Former Tobacco user 05/14/23 08:51 Tobacco use type Cigarette 05/14/23 08:51 e-Cigarette/Vaping Use Never Used 05/14/23 08:51 Thrive Assessment: Date of Thrive Assessment Date Thrive assessed 05/14/23 05/14/23 08:51 Const General: alert; No acute distress Eyes Conjunctivae: conjunctivae normal Resp Auscultation: clear to auscultation bilaterally Cardio Rate: regular rate Rhythm: regular rhythm GI Inspection: Yes normal to inspection Extrem General: Yes normal to inspection and No edema Assessment and Plan Assessment & Plan (1) Overweight (BMI 25.0-29.9): Code(s): E66.3 - Overweight (2) Hypercholesterolemia: Code(s): E78.00 - Pure hypercholesterolemia, unspecified Plan: Avoid fried foods, chicken skin, eggs, butter margarine, pastries and meat. Be it pork or beef they have a lot of cholesterol LDL goal less than 130 and triglyceride of less than 150 patient is diet controlled (3) Impaired glucose tolerance: Code(s): R73.02 - Impaired glucose tolerance (oral) Plan: Decrease the amount of carbohydrate intake, pasta, bread, rice and potatoes are all sugar and that is aside from all the sweet stuff, remember that fruits are good but they are Sweet also. (4) Hypertension: Code(s): I10 - Essential (primary) hypertension Plan: Continue with blood pressure medication. Decrease salt intake and exercise presently on lisinopril 20 mg once a day (5) Pulmonary nodule: Comment: March 2023Small pulmonary nodules, largest measuring 5 mm. According to the UPDATED 2017 Fleischner Society recommendations, the advised follow-up imaging for less than 6 mm solid nodule: Low risk, no chest CT follow-up and high risk, optional chest CT follow-up in one year. Right infrahilar abnormality on chest x-ray may have been due to bony osteophyte. Sclerotic lesion in the T6 vertebral body. Follow-up bone scan recommended. Code(s): R91.1 - Solitary pulmonary nodule Plan: Continue to follow-up (6) Lesion of thoracic vertebra: Comment: T6 sclerotic lesion March 2023 Code(s): M89.9 - Disorder of bone, unspecified Plan: Patient had the bone scan done which did not reveal any significance (7) History of breast cancer: Comment: Right breast cancer 1999 Right modified radical mastectomy Dr. freire chemotherapy no tamoxifen due to bleeding Dr. Macdonald Code(s): Z85.3 - Personal history of malignant neoplasm of breast Plan: Continue to follow-up with Hematology-Oncology Orders: Orders MR thoracic spine wo/w con 3 Months M89.9 - Disorder of bone, unspecified Referrals Hematology & Oncology Referral M89.9 - Disorder of bone, unspecified, R91.1 - Solitary pulmonary nodule, Z85.3 - Personal history of malignant neoplasm of breast Medications: Changed From lisinopril 20 mg PO DAILY 30 tabs 5RF I10 - Essential (primary) hypertension To lisinopril 30 mg PO DAILY 90 tabs 2RF I10 - Essential (primary) hypertension Coding Level of Care Code Est Pt Level 4 (44230) Diagnoses Overweight (BMI 25.0-29.9) E66.3 Hypercholesterolemia E78.00 Impaired glucose tolerance R73.02 Hypertension I10 Pulmonary nodule R91.1 Lesion of thoracic vertebra M89.9 History of breast cancer Z85.3
[2023-05-14 09:20] VITALS: BP 132/80
== END 2023-05-14 09:25 | disposition home or self-care (01) ==
PROVIDERS: Visit Provider Internal Medicine
DX: E66.3 Overweight (principal); E78.00 Pure hypercholesterolemia, unspecified; R73.02 Impaired glucose tolerance (oral); I10 Essential (primary) hypertension; R91.1 Solitary pulmonary nodule; M89.9 Disorder of bone, unspecified; Z85.3 Personal history of malignant neoplasm of breast
CPT/HCPCS: 99214

== ENCOUNTER → 2023-07-31 10:00 | Outpatient (BNV) | payer MEDICARE, SELFPAY | PROVIDERS: PCP Internal Medicine; Referring Provider Internal Medicine; Visit Provider Internal Medicine | DX: Z85.3 Personal history of malignant neoplasm of breast (principal) | CPT/HCPCS: 99204 ==

== ENCOUNTER 2023-08-04 09:35 | Outpatient (REF) | payer MEDICARE, SELFPAY ==
--- NOTE | ~2023-08-04 | MR_ITS ---
EXAMINATION: MR THORACIC SPINE WITHOUT AND WITH CONTRAST CLINICAL INFORMATION: Lesion of thoracic vertebra COMPARISON: nuclear medicine bone scan 04/28/[address] 04/08/2023 TECHNIQUE: MRI of the thoracic spine was obtained using routine sequences without and with contrast. Intravenous contrast: Gadavist 7 mL. FINDINGS: Motion degraded examination. Corresponding to a sclerotic lesion on CT is a intraosseous hemangioma within the right aspect of the T6 vertebral body demonstrating patchy T1 hyperintensity with speckled low signal foci, T2/STIR hyperintensity and heterogeneous enhancement pattern. Normal thoracic kyphosis is preserved. No significant spondylolisthesis. Vertebral body heights are maintained. Multilevel disc desiccation with moderate T10-T11 and otherwise milder disc height loss. There is slight chronic height loss of the T12 vertebral body with associated marginally edematous upper endplate Schmorl's node demonstrating peripheral enhancement measuring 1.0 cm, contiguous with the T11-T12 disc space. There is also mild enhancing type I Modic endplate change at T10-T11 with opposing endplate Schmorl's nodes, the larger of which measures 5 mm along the T11 upper endplate with peripheral enhancement. Additional L2 inferior endplate endplate Schmorl's node with concentric rim of inflammatory enhancement. No suspicious osseous lesions. Shallow left paracentral disc protrusion at T8-T9. No spinal canal or neural foraminal stenosis at any level. There is no significant spinal canal or neural foraminal stenosis at any level. The thoracic spinal cord is normal in signal and morphology. No pathologic intrathecal enhancement. No epidural fluid collection, hematoma, or mass. Intramuscular lipoma insinuating within the left sided paraspinal musculature from the level of C6-T2 measuring approximately 5.0 cm in craniocaudal extent. The descending thoracic aorta is of normal contour and caliber. MR/MR thoracic spine wo/w con IMPRESSION: 1. T6 vertebral body intraosseous hemangioma corresponding to sclerotic lesion on CT. 2. No significant spinal canal or neural foraminal stenosis at any level. 3. Several inflamed endplate Schmorl's nodes with associated enhancement. 4. Intramuscular lipoma insinuating within the left sided paraspinal musculature from the level of C6-T2 measuring approximately 5.0 cm in craniocaudal extent.
[2023-08-04] MEDS: gadobutroL 7.5 ML VIAL IVPUSH (10:46)
== END 2023-08-04 09:36 | disposition home or self-care (01) ==
LOC: HO.MRI 09:35
PROVIDERS: PCP Internal Medicine; Visit Provider Internal Medicine
DX: M89.9 Disorder of bone, unspecified (principal)
CPT/HCPCS: 72157; A9585

== ENCOUNTER 2023-11-07 13:06 | Outpatient (AMB) | payer MEDICARE, SELFPAY ==
[2023-11-07 13:09] VITALS: BP 120/72; PULSE 90; O2SAT 98; BMI 28.3
--- NOTE | 2023-11-07 13:09 | MHC.PC.OV ---
Vital Signs 11/07/23 13:09 Height 5 ft 2 in Weight 155 lb BMI 28.3 BP 120/72 Blood Pressure Location Lt brachial Position Sitting Pulse 90 Pulse Source Pulse Oximeter Pulse Oximetry (%) 98 Oxygen Delivery Method Room Air Intake Visit Reasons: Dizziness Appliquer: Not Required per policy Accompanied by: Self / Same As Patient Allergies Sulfa (Sulfonamide Antibiotics) [SULFA(SULFONAMIDE ANTIBIOTICS)] Allergy (Unknown, Verified 11/07/23 13:10) NKNOWN amlodipine Adverse Reaction (Intermediate, Verified 11/07/23 13:10) Leg swelling Tobacco use date assessed: 05/14/23 Fall risk assessment: No Falls in past year Last assessed Fall Risk: 11/07/23 Dental Screening Dental Screen Date: 05/14/23 HPI Dizziness HPI Details 72-year-old overweight female with a history of hypercholesterolemia impaired glucose tolerance hypertension and history of breast cancer 2000 coming in for an acute problem last seen in April 2023. Patient is due for colonoscopy this year, due for bone density and due for mammogram. Review of the notes has been following up with Hematology-Oncology had right modified radical mastectomy did not tolerate adjuvant chemotherapy remission bone scan done for the vague sclerotic lesion in the T6 vertebra which is negative MRI of the thoracic spine done T6 vertebral body intraosseous hemangioma corresponding to sclerotic lesion on CT. 2. No significant spinal canal or neural foraminal stenosis at any level. 3. Several inflamed endplate Schmorl's nodes with associated enhancement. 4. Intramuscular lipoma insinuating within the left sided paraspinal musculature from the level of C6-T2 measuring approximately 5.0 cm in craniocaudal extent. 3 days of vertigo, no syncope,, nausea, , cough sbsided, ears fine,runny nose often, PFSH Medical History (Updated 11/07/23 @ 13:45 by Rolo Richards MD) Breast cancer screening by mammogram Blood pressure elevated without history of HTN Alopecia Medicare annual wellness visit, initial Knee pain, right Shoulder pain, bilateral Overweight (BMI 25.0-29.9) Impaired glucose tolerance Hypercholesterolemia Osteopenia Pituitary adenoma Tubular adenoma of colon History of breast cancer Surgical History (Updated 07/31/23 @ 10:43 by Kinsey Macdonald MD) History of surgery History of orthopedic surgery History of cataract surgery History of colonoscopy History of arthroscopy of right knee H/O right mastectomy History of cholecystectomy Family History Father Dementia Alcoholism Mother Congenital heart disease Cancer Sister Breast cancer Sister CAD (coronary artery disease) Social History Housing: House Alcohol intake: current Alcohol intake frequency: holidays/special occasions only Patient Tobacco Use Status: Former Tobacco user Tobacco use type: Cigarette Years Smoked: quit 1996 e-Cigarette/Vaping Use: Never Used Second Hand Smoke Exposure: No Advance Directives Date on File: 05/14/21 Current occupational status: retired Cognitive needs: No Hearing needs: No Vision needs: Yes Questionnaire PHQ-9 Over the last 2 weeks, how often have you been bothered by any of the following problems? 1. Little interest or pleasure in doing things: not at all 2. Feeling down, depressed, or hopeless: not at all 3. Trouble falling or staying asleep, or sleeping too much: not at all 4. Feeling tired or having little energy: not at all 5. Poor appetite or overeating: not at all 6. Feeling bad about yourself - or that you are a failure or have let yourself or your family down: not at all 7. Trouble concentrating on things, such as reading the newspaper or watching television: not at all 8. Moving or speaking so slowly that other people could have noticed. Or the opposite - being so fidgety or restless that you have been moving around a lot more than usual: not at all 9. Thoughts that you would be better off or of hurting yourself in some way: not at all Total score: 0 Depression Screening Interpretation: Negative Depression Screening Done: Yes Source: Developed by Drs. Yohan Corbett, Tanya Jacobsen, Linden Aguillon and colleagues, with an educational suzan from [employer]. Thrive Questionnaire Date Thrive assessed: 05/14/23 LUCITA-7 AMB Questionnaire LUCITA-7 Date LUCITA - 7 assessed: 05/14/23 Source: Developed by Drs. Yohan Corbett, Tanya Jacobsen, Linden Aguillon and colleagues, with an educational suzan from [employer]. Physical exam (Primary Care) Vital Signs: Last Vital Signs Pulse 90 11/07/23 13:09 BP 120/72 11/07/23 13:09 Pulse Ox 98 11/07/23 13:09 Oxygen Delivery Method Room Air 11/07/23 13:09 BMI result Body Mass Index 28.3 Tobacco/Smoking Status: Tobacco use Status Tobacco use date assessed 05/14/23 11/07/23 13:11 Patient Tobacco Use Status Former Tobacco user 11/07/23 13:11 Tobacco use type Cigarette 11/07/23 13:11 e-Cigarette/Vaping Use Never Used 11/07/23 13:11 PHQ-9: PHQ-9 Score PHQ-9: Total score 0 11/07/23 13:16 Depression Screening Interpretation: Negative Thrive Assessment: Date of Thrive Assessment Date Thrive assessed 05/14/23 11/07/23 13:11 Const General: alert; No acute distress Eyes Conjunctivae: conjunctivae normal Resp Auscultation: clear to auscultation bilaterally Cardio Rate: regular rate Rhythm: regular rhythm GI Inspection: Yes normal to inspection Extrem General: Yes normal to inspection and No edema Assessment and Plan Assessment & Plan (1) History of breast cancer: Comment: Right breast cancer 1999 Right modified radical mastectomy Dr. freire chemotherapy no tamoxifen due to bleeding Dr. Macdonald Code(s): Z85.3 - Personal history of malignant neoplasm of breast Plan: Patient has followed up with Hematology-Oncology for the breast cancer history in remission. No concerns on the thoracic spine lesion (2) Lesion of thoracic vertebra: Comment: T6 sclerotic lesion March 2023, July 2023 thoracic MRIT6 vertebral body intraosseous hemangioma corresponding to sclerotic lesion on CT. 2. No significant spinal canal or neural foraminal stenosis at any level. 3. Several inflamed endplate Schmorl's nodes with associated enhancement. 4. Intramuscular lipoma insinuating within the left sided paraspinal musculature from the level of C6-T2 measuring approximately 5.0 cm in craniocaudal extent. Code(s): M89.9 - Disorder of bone, unspecified Plan: Discussed that degenerative disc problem (3) Hypertension: Code(s): I10 - Essential (primary) hypertension Plan: Continue with blood pressure medication. Decrease salt intake and exercise on lisinopril 30 mg once a day (4) Overweight (BMI 25.0-29.9): Code(s): E66.3 - Overweight Plan: Diet and exercise (5) Cough: Code(s): R05.9 - Cough, unspecified Plan: declined further work up right now. concern on lisinopril (6) Benign paroxysmal positional vertigo: Code(s): H81.10 - Benign paroxysmal vertigo, unspecified ear Plan: advised to take allergy med. meclizine sent also prn Orders: Orders Complete Blood Count Auto Diff Today H81.10 - Benign paroxysmal vertigo, unspecified ear Free T4 (Free Thyroxine) Today H81.10 - Benign paroxysmal vertigo, unspecified ear Comprehensive Met. Panel Today H81.10 - Benign paroxysmal vertigo, unspecified ear Thyroid Stimulating Hormone Today H81.10 - Benign paroxysmal vertigo, unspecified ear UA w Microscopic Today H81.10 - Benign paroxysmal vertigo, unspecified ear Medications: New fexofenadine (Comfort Allergy) 180 mg PO DAILY 30 tabs 0RF H81.10 - Benign paroxysmal vertigo, unspecified ear meclizine 25 mg PO TID 14 tabs 0RF H81.10 - Benign paroxysmal vertigo, unspecified ear Refilled zolpidem (Ambien) 5 mg PO BEDTIME PRN 14 tabs 1RF sleep G47.00 - Insomnia, unspecified Discontinued benzonatate Discontinued Reason: Doctor's Order 200 mg PO BID-TID PRN 30 caps 0RF cough Coding Level of Care Code Est Pt Level 4 (34682) Diagnoses History of breast cancer Z85.3 Lesion of thoracic vertebra M89.9 Hypertension I10 Overweight (BMI 25.0-29.9) E66.3 Cough R05.9 Benign paroxysmal positional vertigo H81.10
== END 2023-11-07 13:53 | disposition home or self-care (01) ==
PROVIDERS: PCP Internal Medicine; Visit Provider Internal Medicine
DX: Z85.3 Personal history of malignant neoplasm of breast (principal); M89.9 Disorder of bone, unspecified; I10 Essential (primary) hypertension; E66.3 Overweight; R05.9 Cough, unspecified; H81.10 Benign paroxysmal vertigo, unspecified ear
CPT/HCPCS: 99214

== ENCOUNTER 2023-11-07 13:56 | Outpatient (REF) | payer MEDICARE, SELFPAY ==
[2023-11-07 14:12] LABS: MANUAL DIFF FLAG NO
[2023-11-07 14:23] LABS: Basophils Absolute Auto 0.1 X10*3/uL (0.0-0.2); Basophils Percent Auto 0.6 % (0-2); Eosinophils Absolute Auto 0.3 X10*3/uL (0.0-0.4); Eosinophils Percent Auto 2.9 % (0-4); Hematocrit 40.4 % (37.0-47.0); Hemoglobin 13.4 g/dl (12.0-16.0); Imm Gran Abs Auto 0.06 X10*3/uL (0.00-0.03); Imm Gran Pct Auto 0.6 % (0.0-0.4); Lymphocytes Absolute Auto 2.7 X10*3/uL (1.2-4.9); Lymphocytes Percent Auto 26.2 % (20-40); Mean Corpuscular HGB Conc 33.2 g/dl (31.0-35.0); Mean Corpuscular Hemoglobin 28.5 pg (27.0-33.0); Mean Platelet Volume 8.4 fL (9.4-12.3); Monocytes Absolute Auto 0.6 X10*3/uL (0.1-1.2); Monocytes Percent Auto 5.7 % (2-11); Neutrophils Absolute Auto 6.5 x10*3/uL (2.0-8.3); Platelet Count 360 X10*3/uL (160-400); Red Cell Distribution Width 13.5 % (11.0-16.0); White Blood Count 10.1 X10*3/uL (4.8-10.8)
[2023-11-07 14:32] LABS: Appearance Urine Cloudy; Color Urine Yellow; Glucose Urine UA Negative (Negative); Leukocyte Esterase Urine Large (3+) (Negative); Nitrite Urine Negative (Negative); UMIC TRIGGER UA YES; Urine Blood Negative (Negative); Urine Ketones Negative (Negative); Urine Protein Negative (Neg-Trace)
[2023-11-07 14:34] LABS: Bacteria Urine 2+ (None Seen); Hyaline Casts Urine 0-2 /LPF (0-2); RBC Urine 0-2 /HPF (0-2); WBC Urine >50 /HPF (0-5)
[2023-11-07 14:51] LABS: Alanine Aminotransferase 16 U/L (0-31); Albumin Level 4.3 g/dL (3.5-5.0); Alkaline Phosphatase 74 U/L (39-117); Anion Gap 12 (12-20); Aspartate Amino Transferase 20 U/L (5-31); Bilirubin Total 0.3 mg/dL (0.0-1.0); Blood Urea Nitrogen 13 mg/dL (9-16); Calcium 10.1 mg/dL (8.4-10.2); Carbon Dioxide 27 mmol/L (22-29); Chloride 103 mmol/L (96-108); Estimated Glomerular Filt Rate 51; Glucose Random 104 mg/dL (60-115); Sodium 137 mmol/L (135-145); Total Protein 7.4 g/dL (6.5-8.0)
[2023-11-07 15:09] LABS: Thyroid Stimulating Hormone 0.94 uIU/mL (0.32-4.0)
== END 2023-11-07 13:57 | disposition home or self-care (01) ==
LOC: HO.LAB 13:56
PROVIDERS: PCP Internal Medicine; Visit Provider Internal Medicine
DX: H81.10 Benign paroxysmal vertigo, unspecified ear (principal)
CPT/HCPCS: 36415; 80053; 81001; 84439; 84443; 85025

== ENCOUNTER 2023-12-08 08:41 | Outpatient (REF) | payer MEDICARE, SELFPAY ==
--- NOTE | ~2023-12-08 | MM_ITS ---
EXAMINATION: MM SCREENING DIGITAL BREAST TOMOSYNTHESIS, BILATERAL CLINICAL INFORMATION: Screening. Asymptomatic. Status post right mastectomy. COMPARISON: Mammography: This study is compared with prior exams dating back to TECHNIQUE: Digital breast tomosynthesis is performed in both the craniocaudal and mediolateral oblique views along with computer-aided detection (CAD). Synthesized 2D images are generated from the tomosynthesis. FINDINGS: There are scattered areas of fibroglandular density (ACR BI-RADS breast composition Category b). There are no significant masses, abnormal calcifications, or other abnormalities. MM/MM tomosynthesis screening LT IMPRESSION: No mammographic evidence of malignancy. ASSESSMENT: BI-RADS BI-RADS 1 - Negative RECOMMENDATION: Routine annual mammography screening. 1 year F/U This examination should not preclude the clinical evaluation of a suspicious palpable abnormality. This patient's information was entered into a reminder system with a target due date for their next mammogram. Electronically signed by: Chastity Suarez DO 01/13/2024 10:33 AM EDT
== END 2023-12-08 08:42 | disposition home or self-care (01) ==
LOC: HO.MAMMO 08:41
PROVIDERS: PCP Internal Medicine; Visit Provider Internal Medicine
DX: Z12.31 Encounter for screening mammogram for malignant neoplasm of breast (principal)
CPT/HCPCS: 77063; 77067

== ENCOUNTER → 2023-12-08 08:45 | Outpatient (BNV) | payer MEDICARE, SELFPAY | PROVIDERS: PCP Internal Medicine; Visit Provider Internal Medicine | DX: Z12.31 Encounter for screening mammogram for malignant neoplasm of breast (principal) | CPT/HCPCS: 77063; 77067 ==

== ENCOUNTER 2024-02-12 07:53 | Outpatient (REF) | payer MEDICARE, SELFPAY ==
[2024-02-12 08:03] LABS: MANUAL DIFF FLAG NO
[2024-02-12 08:48] LABS: Basophils Absolute Auto 0.1 X10*3/uL (0.0-0.2); Basophils Percent Auto 0.9 % (0-2); Eosinophils Absolute Auto 0.3 X10*3/uL (0.0-0.4); Eosinophils Percent Auto 3.8 % (0-4); Hematocrit 38.4 % (37.0-47.0); Hemoglobin 12.4 g/dl (12.0-16.0); Imm Gran Abs Auto 0.06 X10*3/uL (0.00-0.03); Imm Gran Pct Auto 0.7 % (0.0-0.4); Lymphocytes Absolute Auto 2.5 X10*3/uL (1.2-4.9); Lymphocytes Percent Auto 28.4 % (20-40); Mean Corpuscular HGB Conc 32.3 g/dl (31.0-35.0); Mean Corpuscular Hemoglobin 28.4 pg (27.0-33.0); Mean Corpuscular Volume 87.9 fL (80.0-98.0); Mean Platelet Volume 8.7 fL (9.4-12.3); Monocytes Absolute Auto 0.5 X10*3/uL (0.1-1.2); Neutrophils Absolute Auto 5.3 x10*3/uL (2.0-8.3); Neutrophils Percent Auto 60.2 % (45-73); Platelet Count 376 X10*3/uL (160-400); Red Blood Count 4.37 X10*6/uL (4.20-5.50); Red Cell Distribution Width 14.1 % (11.0-16.0); White Blood Count 8.7 X10*3/uL (4.8-10.8)
[2024-02-12 08:49] LABS: Appearance Urine Clear; Color Urine Yellow; Glucose Urine UA Negative (Negative); Leukocyte Esterase Urine Small (1+) (Negative); Nitrite Urine Negative (Negative); Specific Gravity - Urine 1.015 (1.005-1.025); UMIC TRIGGER UACC YES; Urine Blood Negative (Negative); Urine Ketones Negative (Negative); Urine Protein Negative (Neg-Trace)
[2024-02-12 08:54] LABS: Bacteria Urine Trace (None Seen); Hyaline Casts Urine 0-2 /LPF (0-2); RBC Urine 0-2 /HPF (0-2); UACC Culture Trigger YES
[2024-02-12 09:27] LABS: Estimated Average Glucose 111 mg/dL; Hemoglobin A1C 115.3084 umol/L; Hemoglobin A1c % 5.5 % (<6.0); Total Hemoglobin (HGBA1C) 3154.5753 umol/L
[2024-02-12 09:42] LABS: Alanine Aminotransferase 22 U/L (0-31); Alkaline Phosphatase 69 U/L (39-117); Anion Gap 12 (12-20); Aspartate Amino Transferase 29 U/L (5-31); Bilirubin Total 0.3 mg/dL (0.0-1.0); Blood Urea Nitrogen 11 mg/dL (9-16); Carbon Dioxide 27 mmol/L (22-29); Chloride 105 mmol/L (96-108); Cholesterol 199 mg/dL (<200); Estimated Glomerular Filt Rate 51; Free T4 (Free Thyroxine) 0.94 ng/dL (0.71-1.85); Glucose Random 112 mg/dL (60-115); HDL Cholesterol 43 mg/dL (>40); LDL Cholesterol Calculated 133 mg/dL (<100); Potassium 4.5 mmol/L (3.3-5.1); Sodium 139 mmol/L (135-145); Thyroid Stimulating Hormone 1.35 uIU/mL (0.32-4.0); Triglycerides 115 mg/dL (<150); Vitamin D 25-OH Total 44.7 ng/mL (>30)
[2024-02-12 09:53] LABS: Folate 10.5 ng/mL (> or = 4.0); Vitamin B12 461 pg/mL (200-900)
== END 2024-02-12 07:54 | disposition home or self-care (01) ==
LOC: HO.LAB 07:53
PROVIDERS: PCP Internal Medicine; Visit Provider Internal Medicine
DX: I10 Essential (primary) hypertension (principal); E78.00 Pure hypercholesterolemia, unspecified; R30.0 Dysuria; Z13.1 Encounter for screening for diabetes mellitus
CPT/HCPCS: 36415; 80053; 80061; 81001; 82306; 82607; 82746; 83036; 84439; 84443; 85025; 87086

== ENCOUNTER 2024-03-17 13:25 | Outpatient (AMB) | payer MEDICARE, SELFPAY ==
[2024-03-17 13:28] VITALS: BP 140/68; PULSE 101; O2SAT 98; BMI 29.4
--- NOTE | 2024-03-17 13:28 | A.OFFPC_ITS ---
Vital Signs 3 03/17/24 13:28 Height 5 ft 2 in Weight 161 lb BMI 29.4 BP 140/68 H Blood Pressure Location Lt brachial Position Sitting Pulse 101 H Pulse Source Pulse Oximeter Pulse Oximetry (%) 98 Oxygen Delivery Method Room Air Intake Visit Reasons: Follow Up Allergies Sulfa (Sulfonamide Antibiotics) [SULFA(SULFONAMIDE ANTIBIOTICS)] Allergy (Unknown, Verified 03/17/24 13:28) NKNOWN amlodipine Adverse Reaction (Intermediate, Verified 03/17/24 13:28) Leg swelling Medication List - Last Reconciled 03/17/24 by Rolo Richards MD cholecalciferol (vitamin D3) 25 mcg PO DAILY lisinopril 30 mg PO DAILY raloxifene 60 mg PO DAILY zolpidem (Ambien) 5 mg PO BEDTIME PRN Tobacco use date assessed: 05/14/23 Fall risk assessment: No Falls in past year Last assessed Fall Risk: 03/17/24 Dental Screening Dental Screen Date: 05/14/23 HPI Follow Up 2 HPI0 Details interdigital rash L between 3rd and 4th finger scaly rashThe patient is a 73-year-old female presenting for a follow-up appointment. She has a history of breast cancer, impaired glucose tolerance, hypercholesterolemia, and essential hypertension. The patient reports frequent sneezing associated with meals over the past couple of months without any nasal congestion, suspecting a possible allergic etiology. She also indicates experiencing fatigue over the last year, despite normal blood work results in January which showed mildly elevated LDL cholesterol and blood sugar levels. Additionally, the patient has noticed itchy eruptions on her fingers lasting a couple of months, which worsen with hot water exposure and have not resolved with the use of cortisone cream, leading to a suspected eczema diagnosis. Over recent times, she has experienced increased urinary frequency and leakage, leading to suspicions of a urinary tract infection, but she reports no pain during urination. 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 - Reports being less active due to fatig ue - Consumes two to three large bottles of water daily, careful not to over- consume due to urinary issues - Dietary habits include controlled port ion sizes with limited snacking - Experienced previous weight loss with dietary supplements but has since regained weight - Constitutional: Reports persistent fat igue - EENT: Denies nasal congestion; Reports intermittent sneezing, sore throat, and earache - Respiratory: Denies chest pain - Cardiovascular: Denies chest pain or e magen - Gastrointestinal: Denies abdominal meron n; Reports normal bowel movements - Genitourinary: Reports frequent urinat ion and occasional leakage - Dermatologic: Reports itchy eruptions on fingers - Sleep: Reports sleep disruption due to nocturia [facility] Medical History (Updated 03/17/24 @ 16:11 by Rolo Richards MD) Breast cancer screening by mammogram Blood pressure elevated without history of HTN Alopecia Medicare annual wellness visit, initial Knee pain, right Shoulder pain, bilateral Overweight (BMI 25.0-29.9) Impaired glucose tolerance Hypercholesterolemia Osteopenia Pituitary adenoma Tubular adenoma of colon History of breast cancer Surgical History (Updated 07/31/23 @ 10:43 by Kinsey Macdonald MD) History of surgery History of orthopedic surgery History of cataract surgery History of colonoscopy History of arthroscopy of right knee H/O right mastectomy History of cholecystectomy Family History Father Dementia Alcoholism Mother Congenital heart disease Cancer Sister Breast cancer Sister CAD (coronary artery disease) Social History Housing: House Alcohol intake: current Alcohol intake frequency: holidays/special occasions only Patient Tobacco Use Status: Former Tobacco user Tobacco use type: Cigarette Years Smoked: quit 1996 e-Cigarette/Vaping Use: Never Used Second Hand Smoke Exposure: No Advance Directives Date on File: 05/14/21 Current occupational status: retired Cognitive needs: No Hearing needs: No Vision needs: Yes Questionnaire PHQ-9 Over the last 2 weeks, how often have you been bothered by any of the following problems? 1. Little interest or pleasure in doing things: not at all 2. Feeling down, depressed, or hopeless: not at all 3. Trouble falling or staying asleep, or sleeping too much: not at all 4. Feeling tired or having little energy: not at all 5. Poor appetite or overeating: not at all 6. Feeling bad about yourself - or that you are a failure or have let yourself or your family down: not at all 7. Trouble concentrating on things, such as reading the newspaper or watching television: not at all 8. Moving or speaking so slowly that other people could have noticed. Or the opposite - being so fidgety or restless that you have been moving around a lot more than usual: not at all 9. Thoughts that you would be better off or of hurting yourself in some way: not at all Total score: 0 Depression Screening Interpretation: Negative Depression Screening Done: Yes Source: Developed by Drs. Yohan Corbett, Tanya Jacobsen, Linden Aguillon and colleagues, with an educational suzan from [employer]. Thrive Questionnaire Date Thrive assessed: 05/14/23 AUDIT C Alcohol Use Questionnaire (AUDIT-C) 1. How often do you have a drink containing alcohol?: Monthly or less 2. How many drinks containing alcohol do you have on a typical day when you are drinking?: 1 or 2 3. How often do you have six or more drinks on one occasion?: Never Total Score: 1 LUCITA-7 AMB Questionnaire LUCITA-7 Date LUCITA - 7 assessed: 05/14/23 Source: Developed by Drs. Yohan Corbett, Tanya Jacobsen, Linden Aguillon and colleagues, with an educational suzan from [employer]. Physical exam (Primary Care) Vital Signs: Last Vital Signs Pulse 101 H 03/17/24 13:28 BP 140/68 H 03/17/24 13:28 Pulse Ox 98 03/17/24 13:28 Oxygen Delivery Method Room Air 03/17/24 13:28 BMI result Body Mass Index 29.4 Tobacco/Smoking Status: Tobacco use Status Tobacco use date assessed 05/14/23 03/17/24 13:29 Patient Tobacco Use Status Former Tobacco user 03/17/24 13:29 Tobacco use type Cigarette 03/17/24 13:29 e-Cigarette/Vaping Use Never Used 03/17/24 13:29 PHQ-9: PHQ-9 Score PHQ-9: Total score 0 03/17/24 14:45 Depression Screening Interpretation: Negative Thrive Assessment: Date of Thrive Assessment Date Thrive assessed 05/14/23 03/17/24 13:29 Const General: alert; No acute distress Eyes Conjunctivae: conjunctivae normal Resp Auscultation: clear to auscultation bilaterally Cardio Rate: regular rate Rhythm: regular rhythm GI Inspection: Yes normal to inspection Extrem General: Yes normal to inspection and No edema Hand/finger images: 2 1. Scaly mildly erythematous rash interdigital area 3 x 4 cm Office Procedures Flu Questionnaire Does the patient have a severe egg allergy?: No Does the patient have severe life threatening allergies?: No Does the patient have a fever or illness today?: No Has the patient ever had Guillain-[place] Syndrome?: No Has the patient ever had any past reaction to a flu shot?: No Immunizations Fluarix Triv [id number] (PF) 45 mcg (15 mcg x 3)/0.5 mL IM syringe Performing Provider: Rolo Richards MD [facility] Administered by: Flor Joy CMA on 03/17/24 14:03 2 Dose Route Admin Location Dispensed Lot Number Expiration Date [facility] Environmental Studies Faculty Member 0.5 mL IM Left Deltoid 0.5 mL [id number] 10/11/24 [id number] [employer] 2 VIS Given Date VIS Provided VIS Publication Date 03/17/24 Single Vaccine 20 Eligibility Eligibility Date Funding Source Not [facility] Eligible 03/17/24 Private Coding Level of Care Code Est Pt Level 4 (11864) Diagnoses History of breast cancer Z85.3 Colon cancer screening Z12.11 Primary hypertension I10 Hypertension type: primary hypertension Hypercholesterolemia E78.00 Impaired glucose tolerance R73.02 Osteopenia, unspecified location M85.80 Osteopenia location: unspecified 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 freire chemotherapy no tamoxifen due to bleeding Dr. Macdonald Code(s): Z85.3 - Personal history of malignant neoplasm of breast Category: Medical (2) Colon cancer screening: Code(s): Z12.11 - Encounter for screening for malignant neoplasm of colon Category: Medical (3) Hypertension: Code(s): I10 - Essential (primary) hypertension Category: Medical Qualifiers: Hypertension type: primary hypertension Qualified Code(s): I10 - Essential (primary) hypertension (4) Hypercholesterolemia: Code(s): E78.00 - Pure hypercholesterolemia, unspecified Category: Medical (5) Impaired glucose tolerance: Code(s): R73.02 - Impaired glucose tolerance (oral) Category: Medical (6) Osteopenia: Code(s): M85.80 - Other specified disorders of bone density and structure, unspecified site Category: Medical Qualifiers: Osteopenia location: unspecified Qualified Code(s): M85.80 - Other specified disorders of bone density and structure, unspecified site (7) 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 Allergic Rhinitis: Consider allergy medication trials, cautious approach preferred by patient. 2. Possible Urinary Tract Infection: Prescribed nitrofurantoin Macrodantin for 7 days, and patient advised to follow up if symptoms persist. 3. Eczema: Prescribed a stronger steroid cream twice daily for two weeks. Referral to dermatology if no improvement is observed. 4. Hypercholesterolemia: Encouraged dietary modifications; repeat lipid panel in follow-up. 5. Impaired Glucose Tolerance: Continue monitoring of blood glucose levels; dietary recommendations reinforced. 6. Essential Hypertension: [facility] We discussed the likely diagnosis of allergic rhinitis, its management, and the option for allergy medication, although the patient is reserving treatment for later based on symptom severity. I explained the presence of a urinary tract infection and the appropriate antibiotic therapy with nitrofurantoin, addressing concerns over previous lack of communication regarding test results. The patient was informed of the use of a stronger steroid cream for eczema, with instructions to monitor skin changes closely. The benefits of managing cholesterol and glucose levels through a balanced diet were emphasized, alongside a plan to continue current hypertension management. The possibility of further dermatological evaluation and follow-up bloodwork was outlined. - Commence prescribed antibiotic nitrofurantoin and complete the 7-day course. - Apply steroid cream twice daily on affected areas for up to two weeks. - Continue taking lisinopril as prescribed and notify the clinic if additional refills are needed. - Monitor sneezing episodes and prompt any escalation in symptoms as needed. - Maintain current dietary regimen and increase water intake as comfortably possible. - Report any persistence or worsening of urinary or dermatological symptoms. - Schedule a follow-up for complete physical examination after the season. Orders: Orders 2 Influenza [id number] Immunization Today Z23 - Encounter for immunization Medications: New 2 nitrofurantoin monohyd/m-cryst 100 mg (Macrobid) must administer with a meal/food 100 mg PO Q12H 14 caps 0RF 7 days N39.0 - Urinary tract infection, site not specified triamcinolone acetonide 0.5% 1 appl topical BID 30 grams 0RF L30.9 - Dermatitis, unspecified Refilled 2 lisinopril 30 mg PO DAILY 90 tabs 2RF I10 - Essential (primary) hypertension
--- OUTSIDE RECORDS SUMMARY | 2024-03-23 19:30 | XMS_ITS | Clinical Summary ---
Author Organization [facility] Address [address] [place] [address] Phone Care Team Providers Care Gas Main Fitter Helper Name Role Phone [facility] Unavailable [phone] Reason for Visit and Chief Complaint Established Patient Plan of Treatment Pending Tests Order Diagnosis Results Due Ordering P claudia Follow Up - Appointment 1 Month Oth fx o f lower end r radius, subs for clos fx w routn heal 11/14/22 Bernard Cadet MD Last Documented On 3 10:26AM ; [facility] Assessments Includes: Assessments from this encounter No Assessments Recorded Medical Equipment - Implanted Devices Includes: Current Devices No Medical Equipment Recorded Medications Includes: Medications discussed during this encounter and other current Medications Current Medications (continue as prescribed) IBU 600 MG Oral Tablet 10/03/2022 Provider: Diagnosis: Last Documented On 3 8:52AM By Zackary Grove ; [facility] Medications Administered Includes: Administered Medications from this encounter No Administered Medications Recorded Vital Signs Includes: Vital Signs from this encounter Vital Name 11/14/2022 10:16A Blood Pressure Sitting (mmHg) 143/80 Pulse Rate-Sitting (bpm) 99 Temp-Temporal 97.1 Height (in) 62 Weight (lb) 156 Body Mass Index 28.5 Body Surface Area 1.7 Oxygen Saturation (%) 94 Last Documented: On 11/14/2022 10:17A M ; [facility] Results Includes: Results discussed during this encounter No Results Recorded For Specified Dates History of Present Illness Includes: History of Present Illness from this encounter No History of Present Illness Recorded Social History No Social History Recorded - Smoking Status Unknown Medical History Includes: Medical History addressed during this encounter No Medical History Recorded Family History Includes: Family History addressed during this encounter No Family History Recorded Review of Systems Includes: Review of Systems from this encounter No Review of Systems Recorded Mental Status Includes: Mental Status from this encounter No Mental Status Recorded Functional Status Includes: Functional Status from this encounter No Functional Status Recorded Physical Exam Includes: Physical Exam from this encounter Allergies Includes: Active Allergies Substance Type Reaction Onset Date Resolved Date Statu s sulfa Allergy heart palpitations 10/14/2022 Active Last Documented On 3 3:47PM ; [facility] Encounter Provider Location Date Check-In Time Check-Out Time Diagnosis Established Patient Bernard Cadet MD [facility] 11/15/19 10:00AM 10:24AM Insurance Includes: Active Insurance Policies Plan Name Member ID Group # Subscriber Relationship Effect thomas Dates 1 - Medicare Part B [facility] [id number] Nurys Da Silva Self 2 - [employer] [id number] Nurys Da Silva Self Clinical Notes Includes: Clinical Notes from this encounter * Progress note Date Encounter Last Documented by 11/14/2022 Established Patient Last marquis reno on 11/14/2022; 10:26 AM, Bernard Cadet MD; [facility] Current Medication - IBU 600 MG Oral Tablet 0 days, 0 refills Physical Findings - Vitals taken 11/14/2022 10:16 am BP-Sitting 143/80 mmHg Pulse Rate-Sitting 99 bpm Temp-Temporal 97.1 F Height 62 in Weight 156 lbs Body Mass Index 28.5 kg/m2 Body Surface Area 1.7 m2 Oxygen Saturation 94 % Chief complaint: Follow-up fracture right distal radius History of Present Illness: This is a 71-year-old woman who sustained a nondisplaced fracture of the right distal radius on 09/30/2022. She was last seen here on 10/14/2022. She was treated with a forearm splint. She reports that her wrist is feeling better. She has continued to wear the forearm splint. Physical exam: Right wrist has minimal residual swelling. There is minimal tenderness at the fracture site. Range of motion today shows flexion 40 degrees, extension 30 degrees, supination 90 degrees, pronation 90 degrees. Skin and neurovascular exams are intact. Imaging: Radiographs of the right wrist taken today are compared with the prior images. There has been no fracture displacement. The fracture appears to be a nondisplaced radial styloid fracture. Impression: Fracture right radial styloid. Plan: Patient may discontinue the forearm splint. She should be cautious about reinjury. I recommended occupational therapy. She would like to do the exercises on her own, but has agreed to go to occupational therapy wants to learn a home exercise program. I asked her to return in 1 month for reexamination and final x-ray of the right wrist. Plan StartCited - Oth fx of lower end r radius, subs for clos fx w routn heal Follow Up/Appointment: 1 Month EndCited
--- OUTSIDE RECORDS SUMMARY | 2024-03-23 19:30 | XMS_ITS | Clinical Summary ---
Author Organization [facility] Address [address] [place] [address] Phone Care Team Providers Care Bean Sprout Laborer Name Role Phone [facility] Unavailable [phone] Reason for Visit and Chief Complaint Medicare New Patient Plan of Treatment Pending Tests Order Diagnosis Results Due Ordering P rovider Follow Up - Appointment 1 Week Colles' fracture of right radius, init for clos fx 10/03/22 Bernard Cadet MD Last Documented On 3 9:03AM ; [facility] Assessments Includes: Assessments from this encounter No Assessments Recorded Medical Equipment - Implanted Devices Includes: Current Devices No Medical Equipment Recorded Medications Includes: Medications discussed during this encounter and other current Medications Current Medications (continue as prescribed) IBU 600 MG Oral Tablet 10/03/2022 Provider: Diagnosis: Last Documented On 3 8:52AM By Zackary Grove ; [facility] Medications Administered Includes: Administered Medications from this encounter No Administered Medications Recorded Vital Signs Includes: Vital Signs from this encounter Vital Name 10/03/2022 08:51A Blood Pressure Sitting (mmHg) 187/83 Pulse Rate-Sitting (bpm) 113 Temp-Temporal 97.2 Height (in) 62 Weight (lb) 160 Body Mass Index 29.3 Body Surface Area 1.7 Oxygen Saturation (%) 96 Last Documented: On 10/03/2022 8:51AM ; [facility] Results Includes: Results discussed during this encounter [...] Active Last Documented On 3 3:47PM ; [facility] Encounters Encounter Provider Location Date Check-In Time Check-Out Time Diagnosis Medicare New Patient [facility] 10/04/19 9:00AM 9:19AM Insurance Includes: Active Insurance Policies Plan Name Member ID Group # Subscriber Relationship Effect thomas Dates 1 - Medicare Part B [facility] [id number] Nurys Da Silva Self 2 - [employer] [id number] Nurys Guaman Clinical Notes Includes: Clinical Notes from this encounter * Progress note Date Encounter Last Documented by 10/03/2022 Medicare New Patient Last docume nted on 10/03/2022; 9:04 AM, Bernard Cadet MD; [facility] Current Medication - IBU 600 MG Oral Tablet 0 days, 0 refills Physical Findings - Vitals taken 10/03/2022 08:51 am BP-Sitting 187/83 mmHg Pulse Rate-Sitting 113 bpm Temp-Temporal 97.2 F Height 62 in Weight 160 lbs Body Mass Index 29.3 kg/m2 Body Surface Area 1.7 m2 Oxygen Saturation 96 % Chief complaint: Right wrist fracture History of Present Illness: This is a 71-year-old woman who fell and injured her right wrist and was found to have a fracture of her right distal radius and a nasal bone fracture. She was seen in the emergency room on 09/30/2022. She was placed in a sugar-tong splint. She reports localized pain in the right wrist. She denies numbness or tingling. She denies elbow pain. Physical exam: The right upper extremity shows moderate diffuse swelling about the right wrist. There is tenderness over the distal radius. There is no elbow tenderness. She has pain with motion of the wrist. Skin and neurovascular exams are intact to the right upper extremity. Imaging: Radiographs of the right wrist and CT of the right wrist performed at [facility] on 09/30/2022 are reviewed. There is a nondisplaced intra-articular fracture of the right distal radius. Impression: Fracture right distal radius Plan: I provided the patient with a forearm splint. She should wear it full-time but may remove it for gentle bathing once daily. I asked her to return in 1 week for reexamination and x-ray of the right wrist. Plan StartCited - Colles' fracture of right radius, init for clos fx Follow Up/Appointment: 1 Week EndCited
--- OUTSIDE RECORDS SUMMARY | 2024-03-23 19:30 | XMS_ITS ---
Care Plan - [facility] Created on: March 23, 2024 Nurys Da Silva : 1950 Sex: Female Author Organization [facility] Address [address] [place] [address] Phone Care Team Providers Care Graduate Recruiter Name Role Phone [facility] Unavailable Unavailable
--- OUTSIDE RECORDS SUMMARY | 2024-03-23 19:30 | XMS_ITS | Patient Health Record ---
Author Organization [facility] Address [address] [place] [address] Care Team Providers Care Steffen House Supervisor Name Role Phone Rolo Richards MD Primary Care Provider Yohan Brizuela [phone] ALLERGIES Allergen (clinical drug ingredient) Drug/Non Drug Allergy documented on EMR Reaction Allergy Type Onset Date Status Sulfa Unknown Drug Allergy Active REASON FOR REFERRAL No Information MEDICATIONS Medication SIG (Take, Route, Fr equency, Duration) Notes Start Date End Date Status Raloxifene HCl 60 MG Oral for 90 Active Vitamin D3 Active Lisinopril 30 MG Oral for 90 A ctive SOCIAL HISTORY Tobacco Use: Social History Observation Description Date Details (start date - stop date) Former Smoker NA - NA Sex Assigned At : Social History Observation Description Sex Assigned At Unknown Tobacco Use/Smoking Question Answer Notes Patient is a former smoker When did you stop smoking? 1996 How long has it been since you last smoked? > 10 years PROBLEMS Problem Type ICD Code Onset Dates Problem Status W/U Status Risk SNOMED Code Notes Problem Encounter for screening for malignant neoplasm of colon (Z12.11) Active confirmed 901712640 Problem Hx of adenomatous colonic polyps (Z86.010) Active confirmed 608307519 Problem Pre-procedural examination (Z01.818) Active confirmed [id number] VITAL SIGNS Blood pressure diastolic 00 mm Hg 02/13/2024 Height 61.5 in 02/13/2024 Blood pressure systolic 00 mm Hg 02/13/2024 Weight 162 lbs 02/13/2024 BMI 30.11 kg/m2 02/13/2024 Encounters Encounter Location Date Provider Diagnosis [facility] [address] [place] [address] 09/16/2023 Yohan Davison [facility] [address] [place] [address] 02/12/2024 Yohan Davison [facility] [address] [facility] [address] [place] [address] 02/13/2024 Yohan Davison Hx of adenomatous colonic polyps Z86.010 ; Encounter for screening for malignant neoplasm of colon Z12.11 and Pre-procedural examination Z01.818 ASSESSMENTS Encounter Date Diagnosis Assessment Notes Treatment Notes Treatment Clinical Notes 02/13/2024 Encounter for screening for malignant neoplasm of colon (ICD-10 - Z12.11) 02/13/2024 Hx of adenomatous colonic polyps (ICD-10 - Z86.010) 02/13/2024 Pre-procedural examination (ICD-10 - Z01.818) PLAN OF TREATMENT Future Test Test Name Order Date COLONOSCOPY 12/03/2011 COLONOSCOPY 01/15/2018 COLONOSCOPY 02/13/2024 Next Appt Details Provider Name:Yohan Davison , 08/27/2024 09:00:00 AM, [address] [place] [address] , [place], [place], [phone], Insurance Providers Payer Name Payer Address Payer Phone Subscriber Number Group Number Insured Name Patient Relationship to Insured Coverage Start Date Coverage End Date MEDICARE OF [place] [address] [place] [address] [id number] EULALIO RODRIGUEZ Self - patient is the insured [employer] ATT[employer] CLAIMS [address] [place] [address] [phone] [id number] EULALIO RODRIGUEZ Self - patient is the insured MEDICAL (GENERAL) HISTORY Medical History History ICD Code Hyperlipidemia--off meds Hx of a serrated adenoma and tubular adenoma removed in 2004 and 2011, respectively. 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
--- OUTSIDE RECORDS SUMMARY | 2024-03-23 19:30 | XMS_ITS ---
Author Organization [facility] Address [address] [place] [address] Care Team Providers Care Facility Manager Histology Name Role Phone Rolo Richards MD Primary Care Provider Yohan Brizuela [phone] ALLERGIES Allergen (clinical drug ingredient) Drug/Non Drug Allergy documented on EMR Reaction Allergy Type Onset Date Status Sulfa Unknown Drug Allergy Active REASON FOR VISIT patient presents today for recall colonoscopy MEDICATIONS Medication SIG (Take, Route, Fr equency, [...] since you last smoked? > 10 years VITAL SIGNS BMI 30.11 kg/m2 02/13/2024 Blood pressure systolic 00 mm Hg 02/13/20 24 Blood pressure diastolic 00 mm Hg 024 Height 61.5 in 02/13/2024 Weight 162 lbs 02/13/2024 Encounters Encounter Location Date Provider Diagnosis [facility] [address] [place] [address] 02/13/2024 Yohan Davison Hx of adenomatous colonic polyps Z86.010 ; Encounter for screening for malignant neoplasm of colon Z12.11 and Pre-procedural examination Z01.818 ASSESSMENTS Encounter Date Diagnosis Assessment Notes Treatment Notes Treatment Clinical Notes 02/13/2024 Hx of adenomatous colonic polyps (ICD-10 - Z86.010) 02/13/2024 Encounter for screening for malignant neoplasm of colon (ICD-10 - Z12.11) 02/13/2024 Pre-procedural examination (ICD-10 - Z01.818) PLAN OF TREATMENT Future Test Test Name Order Date COLONOSCOPY 02/13/2024 Next Appt Details Follow Up: prn, Reason: Provider Name:Yohan Burks Saman , 08/27/2024 09:00:00 AM, [address] [place] [address], [phone], Progress Notes * Examination Category Sub-Category Detail Notes General Examination GENERAL APPEARANCE: pleasant , well nourished, well developed, in no acute distress EYES: sclera non-icteric NECK/THYROID: no cervical lymphade nopathy, neck supple HEART: S1, S2 normal LUNGS: clear to auscultatio n bilaterally ABDOMEN: normal bowel sounds, no guarding or rigidity, no hepatosplenomegaly, no masses palpable, soft, nontender, nondistended. NEUROLOGIC: alert and oriented SKIN: nonjaundiced, no spi bipin angiomata. EXTREMITIES: no edema ORAL CAVITY: mucosa moist
--- OUTSIDE RECORDS SUMMARY | 2024-03-23 19:30 | XMS_ITS ---
Author Organization [facility] Address [address] [place] [address] Phone Care Team Providers Care Manager Field Name Role Phone [facility] Unavailable [phone] Plan of Treatment No Plan of Treatment Recorded Assessments Includes: Assessments for all patient encounters No Assessments Recorded Medical Equipment - Implanted Devices Includes: Current and historical Devices No Medical Equipment Recorded Medications Includes: Current and historical Medications Current Medications (continue as prescribed) IBU 600 MG Oral Tablet 10/03/2022 Provider: Diagnosis: Last Documented On 3 8:52AM By Zackary Grove ; [facility] Medications Administered Includes: Administered Medications in patient's chart No Administered Medications Recorded Results Includes: Results from 03/23/2023 through 03/23/2024 No Results Recorded For Specified Dates History of Present Illness History of Present Illness not supported for this document type No History of Present Illness Recorded Social History No Social History Recorded - Smoking Status Unknown Medical History Includes: Medical History in patient's chart No Medical History Recorded Family History Includes: Family History in patient's chart No Family History Recorded Review of Systems Review of Systems not supported for this document type No Review of Systems Recorded Mental Status No Mental Status Recorded Functional Status No Functional Status Recorded Physical Exam Physical Exam not supported for this document type No Physical Exam Recorded Allergies Includes: Active, inactive, and resolved Allergies Substance Type Reaction Onset Date Resolved Date Statu s sulfa Allergy heart palpitations 10/14/2022 Active Last Documented On 3 3:47PM ; [facility] Insurance Includes: Active Insurance Policies Plan Name Member ID Group # Subscriber Relationship Effect thomas Dates 1 - Medicare Part B [facility] [id number] Nurys Guaman 2 - [employer] [id number] Nurys Guaman Clinical Notes Includes: Signed Clinical Notes starting from 03/24/2022 No Clinical Notes Recorded
--- OUTSIDE RECORDS SUMMARY | 2024-03-23 19:30 | XMS_ITS | Clinical Summary ---
Author Organization [facility] Address [address] [place] [address] Phone Care Team Providers Care Check Scaler Name Role Phone [facility] Unavailable [phone] Reason for Visit and Chief Complaint Established Patient Plan of Treatment Pending Tests Order Diagnosis Results Due Ordering P eagleder Follow Up - Appointment 1 Month Colles' fracture of right radius, init for clos fx 10/14/22 Bernard Cadet MD Last Documented On 3 9:57AM ; [facility] Assessments Includes: Assessments from this encounter No Assessments Recorded Medical Equipment - Implanted Devices Includes: Current Devices No Medical Equipment Recorded Medications Includes: Medications discussed during this encounter and other current Medications Current Medications (continue as prescribed) IBU 600 MG Oral Tablet 10/03/2022 Provider: Diagnosis: Last Documented On 3 8:52AM By Zackary Grove ; [facility] Medications Administered Includes: Administered Medications from this encounter No Administered Medications Recorded Vital Signs Includes: Vital Signs from this encounter Vital Name 10/14/2022 09:50A Blood Pressure Sitting (mmHg) 153/80 Pulse Rate-Sitting (bpm) 105 Temp-Temporal 97.3 Height (in) 62 Weight (lb) 160 Body Mass Index 29.3 Body Surface Area 1.7 Oxygen Saturation (%) 96 Last Documented: On 10/14/2022 9:51AM ; [facility] Results Includes: Results discussed during this encounter [...] Active Last Documented On 3 3:47PM ; [facility] Encounters Encounter Provider Location Date Check-In Time Check-Out Time Diagnosis Established Patient Bernard Cadet MD [facility] 10/15/19 23 10:00AM 9:58AM Insurance Includes: Active Insurance Policies Plan Name Member ID Group # Subscriber Relationship Effect thomas Dates 1 - Medicare Part B [facility] [id number] Nurys Da Silva Self 2 - [employer] [id number] Nurys Da Silva Self Clinical Notes Includes: Clinical Notes from this encounter * Progress note Date Encounter Last Documented by 10/14/2022 Established Patient Johnnie reno on 10/14/2022; 9:57 AM, Bernard Cadet MD; [facility] Current Medication - IBU 600 MG Oral Tablet 0 days, 0 refills Physical Findings - Vitals taken 10/14/2022 09:50 am BP-Sitting 153/80 mmHg Pulse Rate-Sitting 105 bpm Temp-Temporal 97.3 F Height 62 in Weight 160 lbs Body Mass Index 29.3 kg/m2 Body Surface Area 1.7 m2 Oxygen Saturation 96 % Chief complaint: Follow-up fracture right distal radius History of Present Illness: This is a 71-year-old woman who sustained a nondisplaced fracture of the right distal radius on 09/30/2022. She was treated nonsurgically. She was seen here on 10/03/2022 and asked to follow-up in 1 week. She has no complaints today. Physical exam: The right wrist has mild residual swelling. There is still some tenderness at the fracture site. Skin and neurovascular exams are intact. Imaging: Radiographs of the right wrist taken today are compared with the prior images. There has been no loss of fracture reduction. Impression: Fracture right distal radius Plan: The patient is instructed to continue full-time wear of the forearm splint. She may remove it for gentle bathing once daily. She should be cautious about reinjury. I asked her to return in 1 month for reexamination and x-ray of the right wrist. We will probably discontinue the splint and begin range of motion exercises at that time. Plan StartCited - Colles' fracture of right radius, init for clos fx Follow Up/Appointment: 1 Month EndCited
--- OUTSIDE RECORDS SUMMARY | 2024-03-23 19:30 | XMS_ITS ---
Author Organization [facility] Address [address] [address] Care Team Providers Care Owner Manager Name Role Phone Rolo Richards MD Primary Care Provider Yhoan Brizuela [phone] REASON FOR VISIT Patient presents today for a recall colonoscopy Encounters Encounter Location Date Provider Diagnosis [facility] [address] [address] 02/12/2024 Yohan Davison PLAN OF TREATMENT Next Appt Details Provider Name:Yohan Davison , 08/27/2024 09:00:00 AM, [address] [place] [address] , [place], [place], [phone],
--- OUTSIDE RECORDS SUMMARY | 2024-03-23 19:30 | XMS_ITS | Clinical Summary ---
Author Organization [facility] Address [address] [place] [address] Phone Care Team Providers Care Dip Painter Name Role Phone [facility] Unavailable [phone] Reason for Visit and Chief Complaint Established Patient Plan of Treatment Pending Tests Order Diagnosis Results Due Ordering P eagleder Follow Up - Appointment PRN Oth fx o f lower end r radius, subs for clos fx w routn heal 12/19/22 Bernard Cadet MD Last Documented On 3 9:37AM ; [facility] Assessments Includes: Assessments from this encounter No Assessments Recorded Medical Equipment - Implanted Devices Includes: Current Devices No Medical Equipment Recorded Medications Includes: Medications discussed during this encounter and other current Medications Current Medications (continue as prescribed) IBU 600 MG Oral Tablet 10/03/2022 Provider: Diagnosis: Last Documented On 3 8:52AM By Zackary Grove ; [facility] Medications Administered Includes: Administered Medications from this encounter No Administered Medications Recorded Results Includes: Results discussed during this encounter [...] Active Last Documented On 3 3:47PM ; [facility], Encounters Encounter Provider Location Date Check-In Time Check-Out Time Diagnosis Established Patient Bernard Cadet MD [facility] 12/20/19 23 9:20AM 9:37AM Insurance Includes: Active Insurance Policies Plan Name Member ID Group # Subscriber Relationship Effect thomas Dates 1 - Medicare Part B [facility] [id number] Nurys Guaman 2 - [employer] [id number] Nurys Guaman Clinical Notes Includes: Clinical Notes from this encounter * Progress note Date Encounter Last Documented by 12/19/2022 Established Patient Johnnie reno on 12/19/2022; 9:38 AM, Bernard Cadet MD; [facility] Current Medication - IBU 600 MG Oral Tablet 0 days, 0 refills Allergies - sulfa Reaction: heart palpitations Physical Findings Chief complaint: Follow-up fracture right distal radius History of Present Illness: This is a 72-year-old woman who sustained a nondisplaced radial styloid fracture of the right distal radius on 09/30/2022. She was last seen on 11/14/2022. She has no complaints today. She reports that she is improving though she still has some discomfort at the end of the day. Physical exam: The right wrist has no swelling or ecchymosis. There is mild tenderness over the radial styloid. Range of motion shows extension 60 degrees, flexion 70 degrees, with equal pronation and supination bilaterally. Skin and neurovascular exams are intact. Imaging: Radiographs of the right wrist taken today are compared to those from 11/14/2022. The fracture line is no longer visible. The fracture appears to be healed in the nondisplaced position. Impression: Fracture right distal radius radial styloid Plan: The patient may continue to increase her activity to tolerance. She will return if she does not have progressive resolution of her symptoms. Plan StartCited - Oth fx of lower end r radius, subs for clos fx w routn heal Follow Up/Appointment: PRN EndCited
--- OUTSIDE RECORDS SUMMARY | 2024-03-23 19:30 | XMS_ITS ---
Author Organization [facility] Address [address] [address] Care Team Providers Care Baker Paint Name Role Phone Rolo Richards MD Primary Care Provider Yohan Brizuela [phone] REASON FOR VISIT Patient presents today for a recall colonoscopy Encounters Encounter Location Date Provider Diagnosis [facility] [address] [address] 09/16/2023 Yohan Davison PLAN OF TREATMENT Next Appt Details Provider Name:Yohan Davison , 08/27/2024 09:00:00 AM, [address] [facility] , [place], [place], [phone],
== END 2024-03-17 15:06 | disposition home or self-care (01) ==
PROVIDERS: PCP Internal Medicine; Visit Provider Internal Medicine
DX: Z85.3 Personal history of malignant neoplasm of breast (principal); Z12.11 Encounter for screening for malignant neoplasm of colon; I10 Essential (primary) hypertension; E78.00 Pure hypercholesterolemia, unspecified; R73.02 Impaired glucose tolerance (oral); M85.80 Other specified disorders of bone density and structure, unspecified site; J31.0 Chronic rhinitis; L20.82 Flexural eczema; N30.00 Acute cystitis without hematuria; Z23 Encounter for immunization

== ENCOUNTER → 2024-03-17 13:25 | Outpatient (BNVA) | payer MEDICARE, SELFPAY | PROVIDERS: PCP Internal Medicine; Visit Provider Internal Medicine | DX: Z23 Encounter for immunization (principal); I10 Essential (primary) hypertension; E78.00 Pure hypercholesterolemia, unspecified; R73.02 Impaired glucose tolerance (oral); M85.80 Other specified disorders of bone density and structure, unspecified site; J31.0 Chronic rhinitis; L20.82 Flexural eczema; N30.00 Acute cystitis without hematuria; Z85.3 Personal history of malignant neoplasm of breast | CPT/HCPCS: 90471; 90656; 96127; 99212 ==

== ENCOUNTER 2024-04-08 08:51 | Outpatient (REF) | payer MEDICARE, SELFPAY ==
--- OUTSIDE RECORDS SUMMARY | 2024-04-08 08:55 | XMS_ITS | Clinical Summary ---
Author Organization [facility] Address [address] [place] [address] Phone Care Team Providers Care Rubber Press Operator Name Role Phone [facility] Unavailable [phone] Reason for Visit and Chief Complaint Established Patient Plan of Treatment Pending Tests Order Diagnosis Results Due Ordering P claudia Follow Up - Appointment 1 Month Oth fx o f lower end r radius, subs for clos fx w routn heal 11/14/22 Bernard Cadet MD Last Documented On 3 10:26AM ; [facility] Assessments Includes: Assessments from [...] Last Documented: On 11/14/2022 10:17A M ; [facility] Results Includes: Results discussed [...] Active Last Documented On 3 3:47PM ; [facility] Encounters Encounter Provider Location Date Check-In Time Check-Out Time Diagnosis Established Patient Bernard Cadet MD [facility] 11/15/19 10:00AM 10:24AM Insurance Includes: Active Insurance Policies Plan Name Member ID Group # Subscriber Relationship Effect thomas Dates 1 - Medicare Part B [facility] [id number] Nurys Da Silva Self 2 - [employer] [id number] Nurys Da Silva Self Clinical Notes Includes: Clinical Notes from this encounter * Progress note Date Encounter Last Documented by 11/14/2022 Established Patient Last marquis reno on 11/14/2022; 10:26 AM, Bernard Cadet MD; [facility] Current Medication - IBU 600 MG [...]
--- OUTSIDE RECORDS SUMMARY | 2024-04-08 08:55 | XMS_ITS | Clinical Summary ---
Author Organization [facility] Address [address] [place] [address] Phone Care Team Providers Care Small Business Consultant Name Role Phone [facility] Unavailable [phone] Reason for Visit and Chief Complaint Medicare New Patient Plan of Treatment Pending Tests Order Diagnosis Results Due Ordering P rovider Follow Up - Appointment 1 Week Colles' fracture of right radius, init for clos fx 10/03/22 Bernard Cadet MD Last Documented On 3 9:03AM ; [facility] Assessments Includes: Assessments from this encounter No Assessments Recorded Medical Equipment - Implanted Devices Includes: Current Devices No Medical Equipment Recorded Medications Includes: Medications discussed during this encounter and other current Medications Current Medications (continue as prescribed) IBU 600 MG Oral Tablet 10/03/2022 Provider: Diagnosis: Last Documented On 3 8:52AM By Zackary Grove ; [facility] Medications Administered Includes: Administered Medications from this encounter No Administered Medications Recorded Vital Signs Includes: Vital Signs from this encounter Vital Name 10/03/2022 08:51A Blood Pressure Sitting (mmHg) 187/83 Pulse Rate-Sitting (bpm) 113 Temp-Temporal 97.2 Height (in) 62 Weight (lb) 160 Body Mass Index 29.3 Body Surface Area 1.7 Oxygen Saturation (%) 96 Last Documented: On 10/03/2022 8:51AM ; [facility] Results Includes: Results discussed during this encounter [...] Active Last Documented On 3 3:47PM ; [facility] Encounters Encounter Provider Location Date Check-In Time Check-Out Time Diagnosis Medicare New Patient [facility] Cad[facility] MD [facility] 10/04/19 9:00AM 9:19AM Insurance Includes: Active Insurance Policies Plan Name Member ID Group # Subscriber Relationship Effect thomas Dates 1 - Medicare Part B [facility] [id number] Nurys Da Silva Self 2 - [employer] [id number] Nurys Guaman Clinical Notes Includes: Clinical Notes from this encounter * Progress note Date Encounter Last Documented by 10/03/2022 Medicare New Patient Last docume nted on 10/03/2022; 9:04 AM, Bernard Cadet MD; [facility] Current Medication - IBU 600 MG [...] CT of the right wrist performed at [facility] on 09/30/2022 are reviewed. There is a [...]
--- OUTSIDE RECORDS SUMMARY | 2024-04-08 08:55 | XMS_ITS ---
Author Organization [facility] Address [address] [place] [address] Phone Care Team Providers Care Press Feeder Broomcorn Name Role Phone [facility] Unavailable [phone] Plan of Treatment No Plan of Treatment Recorded Assessments Includes: Assessments for all patient encounters No Assessments Recorded Medical Equipment - Implanted Devices Includes: Current and historical Devices No Medical Equipment Recorded Medications Includes: Current and historical Medications Current Medications (continue as prescribed) IBU 600 MG Oral Tablet 10/03/2022 Provider: Diagnosis: Last Documented On 3 8:52AM By Zackary Grove ; [facility] Medications Administered Includes: Administered Medications in patient's chart No Administered Medications Recorded Results Includes: Results from 04/08/2023 through 04/08/2024 No Results Recorded For Specified Dates History [...] Active Last Documented On 3 3:47PM ; [facility] Insurance Includes: Active Insurance Policies Plan Name Member ID Group # Subscriber Relationship Effect thomas Dates 1 - Medicare Part B [facility] [id number] Nurys Guaman 2 - [employer] [id number] Nurys Guaman Clinical Notes Includes: Signed Clinical Notes starting from 03/24/2022 No Clinical Notes Recorded
--- OUTSIDE RECORDS SUMMARY | 2024-04-08 08:55 | XMS_ITS ---
Care Plan - [facility] Created on: April 08, 2024 Nurys Da Silva : 1950 Sex: Female Author Organization [facility] Address [address] [place] [address] Phone Care Team Providers Care Bead Inspector Name Role Phone [facility] Unavailable Unavailable
--- OUTSIDE RECORDS SUMMARY | 2024-04-08 08:55 | XMS_ITS | Clinical Summary ---
Author Organization [facility] Address [address] [place] [address] Phone Care Team Providers Care Attorney Law Clerk Name Role Phone [facility] Unavailable [phone] Reason for Visit and Chief Complaint Established Patient Plan of Treatment Pending Tests Order Diagnosis Results Due Ordering P eagleder Follow Up - Appointment PRN Oth fx o f lower end r radius, subs for clos fx w routn heal 12/19/22 Bernard Cadet MD Last Documented On 3 9:37AM ; [facility] Assessments Includes: Assessments from [...] Active Last Documented On 3 3:47PM ; [facility], Encounters Encounter Provider Location Date Check-In Time Check-Out Time Diagnosis Established Patient Bernard Cadet MD [facility] 12/20/19 23 9:20AM 9:37AM Insurance Includes: Active Insurance Policies Plan Name Member ID Group # Subscriber Relationship Effect thomas Dates 1 - Medicare Part B [facility] [id number] Nurys Guaman 2 - [employer] [id number] Nurys Guamna Clinical Notes Includes: Clinical Notes from this encounter * Progress note Date Encounter Last Documented by 12/19/2022 Established Patient Johnnie reno on 12/19/2022; 9:38 AM, Bernard Cadet MD; [facility] Current Medication - IBU 600 MG [...]
--- OUTSIDE RECORDS SUMMARY | 2024-04-08 08:55 | XMS_ITS | Clinical Summary ---
Author Organization [facility] Address [address] [place] [address] Phone Care Team Providers Care Environmental Change Analyst Name Role Phone [facility] Unavailable [phone] Reason for Visit and Chief Complaint Established Patient Plan of Treatment Pending Tests Order Diagnosis Results Due Ordering P eagleder Follow Up - Appointment 1 Month Colles' fracture of right radius, init for clos fx 10/14/22 Bernard Cadet MD Last Documented On 3 9:57AM ; [facility] Assessments Includes: Assessments from this encounter No Assessments Recorded Medical Equipment - Implanted Devices Includes: Current Devices No Medical Equipment Recorded Medications Includes: Medications discussed during this encounter and other current Medications Current Medications (continue as prescribed) IBU 600 MG Oral Tablet 10/03/2022 Provider: Diagnosis: Last Documented On 3 8:52AM By Zackary Grove ; [facility] Medications Administered Includes: Administered Medications from this encounter No Administered Medications Recorded Vital Signs Includes: Vital Signs from this encounter Vital Name 10/14/2022 09:50A Blood Pressure Sitting (mmHg) 153/80 Pulse Rate-Sitting (bpm) 105 Temp-Temporal 97.3 Height (in) 62 Weight (lb) 160 Body Mass Index 29.3 Body Surface Area 1.7 Oxygen Saturation (%) 96 Last Documented: On 10/14/2022 9:51AM ; [facility] Results Includes: Results discussed during this [...] Active Last Documented On 3 3:47PM ; [facility] Encounters Encounter Provider Location Date Check-In Time Check-Out Time Diagnosis Established Patient Bernard Cadet MD [facility] 10/15/19 23 10:00AM 9:58AM Insurance Includes: Active Insurance Policies Plan Name Member ID Group # Subscriber Relationship Effect thomas Dates 1 - Medicare Part B [facility] [id number] Nurys Da Silva Self 2 - Medex [id number] Nurys Da Silva Self Clinical Notes Includes: Clinical Notes from this encounter * Progress note Date Encounter Last Documented by 10/14/2022 Established Patient Johnnie reno on 10/14/2022; 9:57 AM, Benrard Cadet MD; [facility] Current Medication - IBU 600 MG Oral [...]
--- OUTSIDE RECORDS SUMMARY | 2024-04-08 08:55 | XMS_ITS ---
Author Organization [facility] Address [address] [place] [address] Care Team Providers Care Glue Bone Crusher Name Role Phone Rolo Richards MD Primary Care Provider Yohan Brizuela [phone] ALLERGIES Allergen (clinical drug ingredient) Drug/Non Drug [...] 02/13/2024 Encounters Encounter Location Date Provider Diagnosis [facility] [address] [place] [address] 02/13/2024 Yohan Davison Hx of adenomatous colonic [...] Name:Yohan Burks Saman , 08/27/2024 09:00:00 AM, [address] [place] [address], [phone], Progress Notes * Examination Category Sub-Category Detail [...]
--- OUTSIDE RECORDS SUMMARY | 2024-04-08 08:56 | XMS_ITS | Patient Health Record ---
Author Organization [facility] Address [address] [place] [address] Care Team Providers Care Studio Camera Operator Name Role Phone Rolo Richards MD Primary Care Provider Yohan Brizuela [phone] ALLERGIES Allergen (clinical drug ingredient) Drug/Non Drug [...] malignant neoplasm of colon (Z12.11) Active confirmed 128869800 Problem Hx of adenomatous colonic polyps (Z86.010) Active confirmed 774114736 Problem Pre-procedural examination (Z01.818) Active confirmed [id number] VITAL SIGNS Blood pressure diastolic 00 mm Hg 02/13/2024 Height 61.5 in 02/13/2024 Blood pressure systolic 00 mm Hg 02/13/2024 Weight 162 lbs 02/13/2024 BMI 30.11 kg/m2 02/13/2024 Encounters Encounter Location Date Provider Diagnosis [facility] [address] [place] [address] 09/16/2023 Yohan Davison [facility] [address] [place] [address] 02/12/2024 Yohan Davison [facility] [address] [facility] [address] [place] [address] 02/13/2024 Yohan Davison Hx of adenomatous colonic [...] Provider Name:Yohan Davison , 08/27/2024 09:00:00 AM, [address] [place] [address] , [place], [place], [phone], Insurance Providers Payer Name Payer Address Payer Phone Subscriber Number Group Number Insured Name Patient Relationship to Insured Coverage Start Date Coverage End Date MEDICARE OF [place] [address] [place] [address] [phone] [id number] EULALIO RODRIGUEZ Self - patient is the insured MEDEX ATTN CLAIMS [address] [place] [address] [phone] [id number] EULALIO RODRIGUEZ Self - patient is the insured MEDICAL (GENERAL) HISTORY Medical History History ICD Code Hyperlipidemia--off meds Hx of a serrated adenoma and tubular adenoma removed in 2004 and 2011, respectively. 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
--- OUTSIDE RECORDS SUMMARY | 2024-04-08 08:56 | XMS_ITS ---
Author Organization [facility] Address [address] [address] Care Team Providers Care Personal Injury Legal Assistant Name Role Phone Rolo Richards MD Primary Care Provider Yohan Brizuela [phone] REASON FOR VISIT Patient presents today for a recall colonoscopy Encounters Encounter Location Date Provider Diagnosis [facility] [address] [address] 02/12/2024 Yohan Davison PLAN OF TREATMENT Next Appt Details Provider Name:Yohan Davison , 08/27/2024 09:00:00 AM, [address] [place] [address] , [place], [place], [phone],
--- OUTSIDE RECORDS SUMMARY | 2024-04-08 08:56 | XMS_ITS ---
Author Organization [facility] Address [address] [address] Care Team Providers Care Sawmill Moulder Operator Name Role Phone Rolo Richards MD Primary Care Provider Yohan Brizuela [phone] REASON FOR VISIT Patient presents today for a recall colonoscopy Encounters Encounter Location Date Provider Diagnosis [facility] [address] [address] 09/16/2023 Yohan Davison PLAN OF TREATMENT Next Appt Details Provider Name:Yohan Davison , 08/27/2024 09:00:00 AM, [address] [facility] , [place], [place], [phone],
== END 2024-04-08 08:52 | disposition home or self-care (01) ==
LOC: HO.CT 08:51
PROVIDERS: PCP Internal Medicine; Visit Provider Internal Medicine
DX: R91.1 Solitary pulmonary nodule (principal)
CPT/HCPCS: 71250

== ENCOUNTER → 2024-04-08 08:53 | Outpatient (BNV) | payer MEDICARE, SELFPAY | PROVIDERS: PCP Internal Medicine; Visit Provider Radiology Diagnostic Radiology | DX: R91.1 Solitary pulmonary nodule (principal) | CPT/HCPCS: 71250 ==

== ENCOUNTER 2024-08-25 08:54 | Outpatient (AMB) | payer MEDICARE, SELFPAY ==
[2024-08-25 09:08] VITALS: BP 122/62; PULSE 75; O2SAT 98; BMI 29.1
--- NOTE | 2024-08-25 09:08 | AM.OFFVISMDC ---
Intake Vital Signs 08/25/24 09:08 Height 5 ft 2 in Weight 159 lb BMI 29.1 BP 122/62 Blood Pressure Location Lt brachial Position Sitting Pulse 75 Pulse Source Pulse Oximeter Pulse Oximetry (%) 98 Oxygen Delivery Method Room Air Intake Visit Reasons: Encounter for subsequent annual wellness visit (AWV) in Medicare patient Allergies Sulfa (Sulfonamide Antibiotics) [SULFA(SULFONAMIDE ANTIBIOTICS)] Allergy (Unknown, Verified 08/25/24 09:09) NKNOWN amlodipine Adverse Reaction (Intermediate, Verified 08/25/24 09:09) Leg swelling Medication List - Last Reconciled 08/25/24 by Rolo Richards MD [BURNJARO PO BID] cholecalciferol (vitamin D3) 25 mcg PO DAILY lisinopril 30 mg PO DAILY raloxifene 60 mg PO DAILY triamcinolone acetonide 0.5% 1 appl topical BID zolpidem (Ambien) 5 mg PO BEDTIME PRN HPI Encounter for subsequent annual wellness visit in Medicare patient HPI Details For [facility] gastroenterology is [facility] Hematology-Oncology is Dr. Macdonald [facility] Medical History (Updated 08/25/24 @ 10:14 by Steffi Gtz, RN) History of Mohs micrographic surgery for skin cancer Osteoporosis History of chemotherapy Blood pressure elevated without history of HTN Breast cancer screening by mammogram Alopecia Medicare annual wellness visit, initial Knee pain, right Shoulder pain, bilateral Overweight (BMI 25.0-29.9) Impaired glucose tolerance Hypercholesterolemia Osteopenia Pituitary adenoma Tubular adenoma of colon History of breast cancer Surgical History (Updated 08/25/24 @ 10:14 by Steffi Gtz, RN) Hx of tubal ligation History of surgery History of orthopedic surgery History of cataract surgery History of colonoscopy History of arthroscopy of right knee H/O right mastectomy History of cholecystectomy Family History Father Dementia Alcoholism Mother Congenital heart disease Cancer Sister Breast cancer Sister CAD (coronary artery disease) Social History (Updated 08/25/24 @ 09:55 by Rolo Richards MD) Housing: House Alcohol intake: current Alcohol intake frequency: holidays/special occasions only Comment: 2x a month 1-2 drinks Patient Tobacco Use Status: Former Tobacco user Tobacco use type: Cigarette Years Smoked: quit 1996 e-Cigarette/Vaping Use: Never Used Second Hand Smoke Exposure: No Advance Directives Date on File: 05/14/21 Current occupational status: retired Cognitive needs: No Hearing needs: No Vision needs: Yes Questionnaire Medicare Wellness Checkup [age] What gender do you identify with?: female During the past 4 weeks, how much have you been bothered by emotional problems such as feeling anxious, depressed, irritable, sad or downhearted, and blue?: not at all During the past 4 weeks, has your physical & emotional health limited your social activities with family, friends, neighbors, or groups?: not at all During the past 4 weeks, how much bodily pain have you generally had?: moderate pain During the past 4 weeks, was someone available to help you if you needed & wanted help?: yes, as much as I wanted During the past 4 weeks, what was the hardest physical activity you could do for at least 2 minutes?: moderate Can you get to places out of walking distance without help? (For eg., can you travel alone on buses, taxis or drive your car?): Yes Can you go shopping for groceries or clothes without someone's help?: Yes Can you prepare your own meals?: Yes Can you do your housework without help?: Yes Because of any health problems, do you need the help of another person with your personal care needs such as eating, bathing, dressing or getting around the house?: No Can you handle your own money without help?: Yes During the past 4 weeks, how would you rate your health in general?: good During the past 4 weeks how have things been going for you?: pretty well Are you having difficulties driving your car?: no Do you always fasten your seat belt when you are in a car?: yes, usually During past 4 weeks, have you been bothered by the following: never: Falling or dizzy when standing up, Sexual problems?, Trouble eating well?, Teeth or denture problems? and Problems using the telephone? and sometimes: Tiredness or fatigue? Have you fallen 2 or more times in the past year?: No Are you afraid of falling?: No Are you a smoker?: no During the past 4 weeks, how many drinks of wine, beer, or other alcoholic beverages did you have?: 1 drink or less per week Do you exercise for about 20 minutes 3 or more times a week?: no, I usually do not exercise this much Have you been given information to help with the following?: no: Hazards in your house that might hurt you? and no: Keeping track of your medications? How often do you have trouble taking medicines the way you have been told to take them?: I always take medicine as prescribed How confident are you that you can control & manage most of your health problems?: very confident What is your race?: White PHQ-9 Over the last 2 weeks, how often have you been bothered by any of the following problems? 1. Little interest or pleasure in doing things: not at all 2. Feeling down, depressed, or hopeless: not at all 3. Trouble falling or staying asleep, or sleeping too much: not at all 4. Feeling tired or having little energy: several days 5. Poor appetite or overeating: not at all 6. Feeling bad about yourself - or that you are a failure or have let yourself or your family down: not at all 7. Trouble concentrating on things, such as reading the newspaper or watching television: not at all 8. Moving or speaking so slowly that other people could have noticed. Or the opposite - being so fidgety or restless that you have been moving around a lot more than usual: not at all 9. Thoughts that you would be better off or of hurting yourself in some way: not at all Total score: 1 Depression Screening Interpretation: Positive Depression Screening Done: Yes 22060 - PHQ-9 Billing: Yes Source: Developed by Drs. Yohan Corbett, Tanya Jacobsen, Linden Aguillon and colleagues, with an educational suzan from [employer]. Thrive Questionnaire Date Thrive assessed: 08/23/24 I am a: Patient What is your living situation today?: I have a steady place to live Within the past 12 months, did the food you bought not last and you didn't have the money to get more?: Never true Within the past 12 months, did you worry whether your food would run out before you got money to buy more?: Never true Do you have trouble paying for medicines?: No Do you have trouble getting transportation to medical appointments?: No Do you have trouble paying your heating and electricity bill?: No Do you have trouble taking care of your child, family member or friend?: No Do you have trouble with day-to-day activities such as bathing, preparing meals, shopping, managing finances, etc.?: No Are you currently unemployed and looking for a job?: No Are you interested in more education?: No Please select the resources that you would like help with: None Currently or been in a relationship where the following occur: No concerns reported THRIVE Score: 0 LUCITA-7 AMB Questionnaire LUCITA-7 Date LUCITA - 7 assessed: 08/25/24 Feeling nervous, anxious, or on edge: 0 = Not at all Not being able to stop or control worryin = Not at all Worrying too much about different things: 0 = Not at all Trouble relaxin = Not at all Being so restless that it is hard to sit still: 0 = Not at all Becoming easily annoyed or irritable: 0 = Not at all Feeling afraid as if something awful might happen: 0 = Not at all Total LUCITA-7 score (0-4 normal; 5-9 mild; 10-14 moderate; 15-21 severe): 0 Source: Developed by Drs. Yohan Corbett, Tanya Jacobsen, Linden Aguillon and colleagues, with an educational suzan from [employer]. LUCITA-7 Assessment Billing LUCITA-7 Assessment Tool: LUCITA-7 Assessment 91959 Review of Systems Const Denies poor appetite and Denies weakness Eyes Denies no additional complaints ENT Reports Normal hearing present, Denies dizziness, Denies nasal congestion, Denies tinnitus and Denies sore throat Card Denies chest pain, Denies syncope, Denies rapid heart rate and Denies dyspnea Resp Denies cough and Denies dyspnea GI Denies change in stool character, Reports constipation, Denies diarrhea, Denies nausea and Denies vomiting Denies urinary frequency, Denies difficulty voiding and Denies dysuria Neuro Reports Normal hearing present, Denies confusion, Denies dizziness, Denies syncope and Denies weakness Psych Denies confusion Physical Exam Vital Signs: Last Vital Signs Pulse 75 08/25/24 09:08 BP 122/62 08/25/24 09:08 Pulse Ox 98 08/25/24 09:08 Oxygen Delivery Method Room Air 08/25/24 09:08 BMI result Body Mass Index 29.1 Const General: No confusion Orientation/consciousness: No confusion HEENT Head: Yes normocephalic Ears: external ears normal and TM's normal bilaterally Face and sinus: Yes normal facial exam Mouth: moist mucous membranes Throat: Yes tonsils normal Eyes Conjunctivae: conjunctivae normal Pupils: Equal, round and reactive pupils present and Pupil accommodation reflex normal Direct Ophthalmoscopy: normal light reflex Neck Neck: No lymphadenopathy Thyroid: Thyroid normal Chest Chest palpation & inspection: normal inspection of the chest Resp Effort & Inspection: normal respiratory effort and no audible wheezes Auscultation: clear to auscultation bilaterally, no crackles, no wheezes and lung sounds not diminished Cardio Rate: regular rate Rhythm: regular rhythm Peripheral pulses: radial pulses present and dorsalis pedis present GI Palpation (GI): no masses Auscultation: normal bowel sounds and normoactive bowel sounds Rectal Exam - Female: deferred Skin General skin exam: no rashes or lesions noted Rashes: no rashes Neuro General: No confusion Cranial nerves: Yes Equal, round and reactive pupils present and Yes Normal hearing present Cognition (Neuro): normal cognition Gait exam (Neuro): Normal gait present Motor exam (neuro): 5/5 motor strength present throughout Deep tendon reflexes (DTR's): Right brachioradialis reflex intensity grade: 2+, Left brachioradialis reflex intensity grade: 2+, Right patellar reflex intensity grade: 2+ and Left patellar reflex intensity grade: 2+ Extrem General: No edema Assessment & Plan Assessment & Plan (1) Encounter for subsequent annual wellness visit in Medicare patient: Code(s): Z00.00 - Encounter for general adult medical examination without abnormal findings Plan: Patient is advised to eat healthy, keep well hydrated, keep active and have adequate sleep. (2) History of breast cancer: Comment: Right breast cancer 1999 Right modified radical mastectomy Dr. freire chemotherapy no tamoxifen due to bleeding Dr. Macdonald Code(s): Z85.3 - Personal history of malignant neoplasm of breast Plan: Continue to follow-up with Hematology-Oncology. Up-to-date with mammogram (3) Pulmonary nodule: Comment: March 2023Small pulmonary nodules, largest measuring 5 mm. According to the UPDATED 2017 Fleischner Society recommendations, the advised follow-up imaging for less than 6 mm solid nodule: Low risk, no chest CT follow-up and high risk, optional chest CT follow-up in one year. Right infrahilar abnormality on chest x-ray may have been due to bony osteophyte. Sclerotic lesion in the T6 vertebral body. Follow-up bone scan recommended. March 2024 Code(s): R91.1 - Solitary pulmonary nodule Plan: March 2024 last CAT scan and continuing to follow-up yearly (4) Hypercholesterolemia: Code(s): E78.00 - Pure hypercholesterolemia, unspecified Plan: Avoid fried foods, chicken skin, eggs, butter margarine, pastries and meat. Be it pork or beef they have a lot of cholesterol LDL goal of less than 130 and triglyceride of less than 150 (5) Overweight (BMI 25.0-29.9): Code(s): E66.3 - Overweight Plan: Diet and exercise (6) Impaired glucose tolerance: Code(s): R73.02 - Impaired glucose tolerance (oral) Plan: Decrease the amount of carbohydrate intake, pasta, bread, rice and potatoes are all sugar and that is aside from all the sweet stuff, remember that fruits are good but they are Sweet also. (7) Osteopenia: Code(s): M85.80 - Other specified disorders of bone density and structure, unspecified site Qualifiers: Osteopenia location: unspecified Qualified Code(s): M85.80 - Other specified disorders of bone density and structure, unspecified site Plan: Bone density has been requested patient is on raloxifene (8) Colon cancer screening: Code(s): Z12.11 - Encounter for screening for malignant neoplasm of colon Plan: Patient has a scheduled colonoscopy on the 27 of August (9) Hypertension: Code(s): I10 - Essential (primary) hypertension Qualifiers: Hypertension type: primary hypertension Qualified Code(s): I10 - Essential (primary) hypertension Plan: Continue with blood pressure medication. Decrease salt intake and exercise patient is on lisinopril 30 mg once a day. PAtient mentions a cough but declined changing med Plan History of Present Illness The patient is a 73-year-old female presenting for her annual physical examination, with notable histories including essential hypertension, hypercholesterolemia, osteopenia, and a prior diagnosis of pulmonary nodules. Her breast cancer, treated in 1999, remains under surveillance with a mammogram last performed in November 2023. Past colonoscopy in 2017 revealed a tubular adenoma, prompting a follow-up colonoscopy scheduled for August. She recounts an episode of transient dysphagia, which resolved spontaneously after three weeks and has not recurred. Her last laboratory evaluations in January 2024 indicated a mildly elevated fasting glucose level (112) and an LDL cholesterol level of 133. The patient maintains an awareness of her allergies to amlodipine and sulfa drugs, which constrain her treatment options. Health Maintenance - Colonoscopy was performed in 2017, repeat advised and scheduled for August. - Mammogram up-to-date, last performed in November 2023. - Bone density testing last completed in July 2021; a follow-up has been requested. - Regular blood work, with the latest conducted in January 2024; detected mild hyperglycemia and elevated LDL cholesterol. - Holter test scheduled for August 27. - Vaccinations up-to-date. - Lifestyle recommendations include diet and exercise for diabetes and cholesterol management. 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 - Exercise: Currently not engaging in exercise due to workload. - Alcohol: Consuming alcohol occasionally, about twice a month during meals. - Smoking: Denies cigarette use. - Recreational Drugs: Denies use of recreational drugs. - Dietary Supplement: Started taking an all-natural product, Bernjaro, for weight loss. - Functional Status: Reports shortness of breath with significant exertion (e.g., climbing two flights of stairs). - Medications: Lisinopril 30 mg daily, Vitamin D, Raloxifene, occasional use of Zolpidem. Review of Systems - Cardiovascular: Denies chest pain, denies recent dizziness or fainting. - Pulmonary: Reports a dry cough, possibly related to Lisinopril; denies recent shortness of breath, except with exertion. - Gastrointestinal: Reports occasional heartburn, possibly dietary-related; had transient dysphagia, now resolved. - Genitourinary: Reports frequent urination, waking up once or twice at night. - Neurological: Denies headaches, weakness, or sensory changes. - Musculoskeletal: Reports bloating; denies other specific musculoskeletal abnormalities. - Dermatological: No ongoing dermatology follow-up; had past skin concerns. - Ophthalmological: Due for an eye exam, no noted vision problems. Physical Exam General: Cooperative, overweight, healthy appearing, comfortable, no acute distress and well developed Orientation: Patient oriented x3 Limitations: No limitations Head: Normal to inspection Ears: Hearing grossly normal bilaterally Nose: Normal external nose present Face and sinus: Normal facial exam Eyes: Appearance normal, both eyes and all related structures Neck: Normal visual inspection and Yes full ROM Respiratory: Normal respiratory effort and able to speak in complete sentences. Clear to auscultation bilaterally Cardiovascular: Regular rate and rhythm. Normal S1 and S2 GI: Normal to inspection. Soft to palpation and nontender, but reports bloating Skin: No rashes or lesions noted Neuro: Patient oriented x3 Extremities: Normal to inspection Results - Labs: January 2024 blood work showed normal blood count, normal electrolytes, good renal function, mildly elevated fasting blood sugar (112), normal liver function, LDL of 133. - Tests: Most recent CAT scan in March 2024 showed stable scattered bilateral pulmonary nodules. - Procedures: Scheduled colonoscopy for August 2023 due to history of tubular adenoma. Plan The management plan for essential hypertension involves ongoing use of Lisinopril 30 mg daily, and a consideration to switch to Losartan will be revisited if the dry cough persists. For hypercholesterolemia, an LDL target of less than 130 is set, encouraging diet and exercise changes. Given glucose intolerance, lifestyle modification is necessary for better blood sugar control. No changes have been made to the current osteoporosis treatment regimen with Raloxifene. The patient's pulmonary nodules necessitate annual imaging to monitor stability. The upcoming colonoscopy in August addresses the prior finding of tubular adenoma. It's crucial for the patient to communicate any return of dysphagia to gastroenterology. Continued mammogram screenings and vision assessments will anchor preventive care efforts. Follow-up lab work will require fasting, ensuring accurate metabolic assessments in future visits. Patient was informed and verbally consented to the use of an ambient scribe for clinic note documentation during this visit. Discussion Notes During the consultation, we discussed the ongoing management of her diagnosed conditions, emphasizing the importance of adherence to current treatments for essential hypertension and the possibility of medication adjustments if chronic coughing persists. The management of hypercholesterolemia was addressed with an LDL cholesterol goal, and we revisited lifestyle modifications to manage her glucose intolerance. The rationale for ongoing Raloxifene therapy, without change until further bone density assessment, was presented. Surveillance strategies for pulmonary nodules were reinforced with stable imaging findings. Her upcoming colonoscopy scheduled in response to a previous tubular adenoma was noted. The patient was advised to monitor and report any recurring dysphagia. Preventive health updates underscore the importance of maintaining a schedule for mammograms and their vision examination. A plan for fasting lab work was agreed upon to ensure accurate monitoring, with continued lifestyle dormitory counselor regarding physical activity, nutrition, and healthcare engagement. Patient Instructions - Continue taking Lisinopril 30 mg daily for blood pressure; consider changing to Losartan if the cough persists. - Follow a cholesterol-lowering diet and engage in regular exercise. - Monitor blood sugar levels and maintain a diet and exercise plan for glucose control. - Follow-up with scheduled colonoscopy in August. - Report any recurrence of swallowing difficulties to your rn neonatal. - Schedule your bone density test along with the mammogram appointment. - Maintain attendance to regular mammograms and plan for an upcoming vision exam. - Fast for eight hours before your next blood draw, only water allowed. - Ensure to implement dietary changes and exercise for weight management. - Consult the office with any new symptoms or concerns. Orders: Orders Comprehensive Met. Panel Today E78.00 - Pure hypercholesterolemia, unspecified Free T4 (Free Thyroxine) Today E78.00 - Pure hypercholesterolemia, unspecified Lipid Panel Today E78.00 - Pure hypercholesterolemia, unspecified Complete Blood Count Auto Diff Today E78.00 - Pure hypercholesterolemia, unspecified Thyroid Stimulating Hormone Today E78.00 - Pure hypercholesterolemia, unspecified Hemoglobin A1c Today E78.00 - Pure hypercholesterolemia, unspecified Vitamin B12 and Folate Today E78.00 - Pure hypercholesterolemia, unspecified Vitamin D 25-OH Total Today E78.00 - Pure hypercholesterolemia, unspecified XR DEXA axial skeleton Today M81.0 - Age-related osteoporosis without current pathological fracture, M85.80 - Other specified disorders of bone density and structure, unspecified site Quality Reporting (2020) Depression/Bipolar (159/160/161/177) PHQ-9: Total score: 1 Coding Level of Care Code Medicare Subsequent (G0439) Diagnoses Encounter for subsequent annual wellness visit in Medicare patient Z00.00 History of breast cancer Z85.3 Pulmonary nodule R91.1 Hypercholesterolemia E78.00 Overweight (BMI 25.0-29.9) E66.3 Impaired glucose tolerance R73.02 Osteopenia, unspecified location M85.80 Osteopenia location: unspecified Colon cancer screening Z12.11 Primary hypertension I10 Hypertension type: primary hypertension Additional Codes LUCITA-7 Assessment Billing - LUCITA-7 Assessment Tool: LUCITA-7 Assessment 80255 ([id number]) PHQ-9 - 90206 - PHQ-9 Billing: Yes ([id number])
--- OUTSIDE RECORDS SUMMARY | 2024-08-25 09:19 | XMS_ITS ---
Author Organization [facility] Address [address] [address] Care Team Providers Care Facility Service Associate Name Role Phone Rolo Richards MD Primary Care Provider Yohan Brizuela [phone] REASON FOR VISIT Patient presents today for a recall colonoscopy Encounters Encounter Location Date Provider Diagnosis [facility] [address] [address] 02/12/2024 Yohan Davison Plan Of Treatment Next Appt Details Provider Name:Yohan Davison , 08/27/2024 09:00:00 AM, [address] [place] [address] , [place], [id number], Progress Notes * EULALIO RODRIGUEZ ADOB: (73 yo F)Acc No.[id number]:02/12/2024 Progress Notes Patient:?ROSA RODRIGUEZ Provider:?Yohan Davison MD :1950???Age:73 Y???Sex:Female D ate:02/12/2024 Address:[address] [place], [place] [id number] Pcp:Rolo Richards MD Subjective: * Chief Complaints: [...] MD Date:? 024 Generated for Keyanna rivero/Chema/Dhara on:?08/25/2024 09:19 AM EDT
--- OUTSIDE RECORDS SUMMARY | 2024-08-25 09:19 | XMS_ITS | Clinical Summary ---
Author Organization [facility] Address [address] [place] [address] Care Team Providers Care Resident Care Provider Name Role Phone Maurice, Rolo Muir MD Primary Care Provider [phone] Allergies Active Allergy Reactions Criticality Noted Date [...] age to complete this topic Care Teams Resident Care Provider Relationship Specialty Start Date End Date Po, Rolo Muir MD [address] [facility] [place] [address] PCP - General Internal Medicine 04/10/20
--- OUTSIDE RECORDS SUMMARY | 2024-08-25 09:19 | XMS_ITS | Patient Health Record ---
Author Organization [facility] Address [address] [place] [address] Care Team Providers Care Semiconductor Development Technician Name Role Phone Rolo Richards MD Primary Care Provider Yohan Brizuela [phone] Allergies Allergen (clinical drug ingredient) Drug/Non Drug [...] Problem Status W/U Status Risk Notes Problem [id number] Encounter for screening for malignant neoplasm of colon (Z12.11) Active confirmed Problem [id number] Hx of adenomatous colonic polyps (Z86.010) Active confirmed Problem [id number] Pre-procedural examination (Z01.818) Active confirmed Vital Signs Blood pressure diastolic 00 mm Hg 02/13/2024 Height 61.5 in 02/13/2024 Blood pressure systolic 00 mm Hg 02/13/2024 Weight 162 lbs 02/13/2024 BMI 30.11 kg/m2 02/13/2024 Encounters Encounter Location Date Provider Diagnosis [facility] [address] [place] [address] 02/13/2024 Yohan Davison Hx of adenomatous colonic [...] 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 be scheduled [...] Name:Yohan Burks Saman , 08/27/2024 09:00:00 AM, [address] [place] [address] , [place], [place], [id number], Insurance Providers Payer Name Payer Address Payer Phone Subscriber Number Group Number Insured Name Patient Relationship to Insured Coverage Start Date Coverage End Date MEDICARE OF [place] [address] [facility] RASHAUN MICHAEL [id number] NURYS RODRIGUEZ Self - patient is the insured MEDEX ATTN CLAIMS [address] [place] [address] [id number] NURYS RODRIGUEZ Self - patient is the insured Medical (General) History Medical History History ICD Code Hyperlipidemia--off meds Hx of a serrated adenoma and tubular adenoma removed in 2004 and 2011, respectively. Hx of breast cancer treated with a right mastectomy and chemotherapy in 1999 Osteoporosis Denies AK,DM,CVA,Lung disease,renal dise ase Hypertension Colonoscopy 02/2018 with a small tubular adenoma Surgical History Surgery Date(Month/Year) Knee surgery Right mastectomy for cancer in 1999 with chemo Tubal ligation Cholecystectomy in 06/2011 Right Breast reconstruction x 3 Nose basal cell removal with Mohs surger y 2023
--- OUTSIDE RECORDS SUMMARY | 2024-08-25 09:20 | XMS_ITS ---
Author Organization [facility] Address [address] [address] Care Team Providers Care Component Inspector Name Role Phone Rolo Richards MD Primary Care Provider Yohan Brizuela [phone] REASON FOR VISIT Patient presents today for a recall colonoscopy Encounters Encounter Location Date Provider Diagnosis [facility] [address] [address] 09/16/2023 Yohan Davison Plan Of Treatment Next Appt Details Provider Name:Yohan Davison , 08/27/2024 09:00:00 AM, [address] [place] [address] , [place], [place], [phone], Progress Notes * EULALIO RODRIGUEZ ADOB: (73 yo F)Acc No.[id number]:09/16/2023 Progress Notes Patient:?ROSA RODRIGUEZ Provider:?Yohan Davison MD :1950???Age:72 Y???Sex:Female D ate:09/16/2023 Address:[address] [place], [place] [id number] Pcp:Rolo Richards MD Subjective: * Chief Complaints: [...]
--- OUTSIDE RECORDS SUMMARY | 2024-08-25 09:20 | XMS_ITS | Clinical Summary ---
Author Organization [facility] it Address [address] [place] [address] Care Team Providers Care Broker Associate Name Role Phone Rolo Richards MD Primary Care Provider [phone] Surgical History Surgery Date Site/Laterality Comments KNEE [...] age to complete this topic Care Teams Broker Associate Relationship Specialty Start Date End Date Rolo Richards MD [address] [place] [address] [address] [facility] [place] [address] PCP - General Internal Medicine 04/10/20
--- OUTSIDE RECORDS SUMMARY | 2024-08-25 09:20 | XMS_ITS ---
Author Organization 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 ???Nonsmoker; rare alcohol. 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
== END 2024-08-25 10:09 | disposition home or self-care (01) ==
LOC: HO.HMCH 08:55
PROVIDERS: PCP Internal Medicine; Visit Provider Internal Medicine
DX: Z00.00 Encounter for general adult medical examination without abnormal findings (principal); R91.1 Solitary pulmonary nodule; Z85.3 Personal history of malignant neoplasm of breast; E78.00 Pure hypercholesterolemia, unspecified; E66.3 Overweight; R73.02 Impaired glucose tolerance (oral); M85.80 Other specified disorders of bone density and structure, unspecified site; Z12.11 Encounter for screening for malignant neoplasm of colon; I10 Essential (primary) hypertension

== ENCOUNTER → 2024-08-25 08:54 | Outpatient (BNVA) | payer MEDICARE, SELFPAY | PROVIDERS: PCP Internal Medicine; Visit Provider Internal Medicine | DX: Z00.00 Encounter for general adult medical examination without abnormal findings (principal); R91.1 Solitary pulmonary nodule; E78.00 Pure hypercholesterolemia, unspecified; E66.3 Overweight; Z68.29 Body mass index [BMI] 29.0-29.9, adult; R73.02 Impaired glucose tolerance (oral); M85.80 Other specified disorders of bone density and structure, unspecified site; I10 Essential (primary) hypertension; Z85.3 Personal history of malignant neoplasm of breast; Z71.3 Dietary counseling and surveillance | CPT/HCPCS: 96127 ==

== ENCOUNTER 2024-08-27 07:44 | Day surgery (SDC) | payer MEDICARE, SELFPAY ==
--- OUTSIDE RECORDS SUMMARY | 2024-08-04 13:55 | XMS_ITS ---
Author Organization [facility] Address [address] [address] Care Team Providers Care Past Due Accounts Clerk Name Role Phone Rolo Richards MD Primary Care Provider Yohan Brizuela [phone] REASON FOR VISIT Patient presents today for a recall colonoscopy Encounters Encounter Location Date Provider Diagnosis [facility] [address] [address] 02/12/2024 Yohan Davison Plan Of Treatment Next Appt Details Provider Name:Yohan Davison , 08/27/2024 09:00:00 AM, [address] [place] [address] , [place], [place], [phone], Progress Notes * EULALIO RODRIGUEZ ADOB: (73 yo F)Acc No.[id number]:02/12/2024 Progress Notes Patient:?ROSA RODRIGUEZ Provider:?Yohan Davison MD :1950???Age:73 Y???Sex:Female D ate:02/12/2024 Address:[address] [place], [place] [phone] Pcp:Rolo Richards MD Subjective: * Chief Complaints: * ???1. Patient presents today for a recall colonoscopy. * Medical History:? Objective: * Vitals:? Assessment: Plan: * Treatment: * * The named appointment provid er may or may not be the originator of this progress note, and it is not deemed complete until electronically signed by the appointment provider. Sign off status: Pending * Provider:?Yohan Davison MD Date:? 024 Generated for Keyanna rivero/Chema/Dhara on:?08/04/2024 01:55 PM EDT
--- OUTSIDE RECORDS SUMMARY | 2024-08-04 13:55 | XMS_ITS | Clinical Summary ---
Author Organization [facility] Address [address] [place] [address] Care Team Providers Care Boat Loader Name Role Phone Maurice, Rolo Muir MD Primary Care Provider [phone] Allergies Active Allergy Reactions Criticality Noted Date Comments Sulfa Antibiotics Medications Medication Sig Dispensed Refills Start Date End Date Status raloxifene (EVISTA) tablet 60 mg Take 60 mg by mouth daily. 0 Active VITAMIN D PO Take by mouth. 0 Active meloxicam (Mobic) 7.5 MG tablet Take 2 tablets (15 mg total) by mouth daily as needed for pain. 30 tablet 0 04/17/2020 Active Active Problems No known active problems Family History Medical History Relation Name Comments Heart disease Father Diabetes Mother Heart disease Mother Relation Name Status Comments Father Mother Social History Tobacco Use Types Packs/Day Years Used Date Smoking Tobacco: Former Cigarettes Q uit: 1996 Smokeless Tobacco: Never Alcohol Use Standard Drinks/Week Comments No 0 (1 standard drink = 0.6 oz pur e alcohol) Sex and Gender Information Value Date Recorded Sex Assigned at Not on file Gender Identity Not on file Sexual Orientation Not on file Job Start Date Occupation Industry Not on file Not on file Not on file Last Filed Vital Signs Vital Sign Reading Time Taken Comments Blood Pressure - - Pulse - - Temperature - - Respiratory Rate - - Oxygen Saturation - - Inhaled Oxygen Concentration - - Weight 72.6 kg (160 lb) 08/28/2020 3:26 PM EDT Height 157.5 cm (5' 2 ) 08/28/2020 3:26 PM EDT Body Mass Index 29.26 08/28/2020 3:26 PM EDT Plan of Treatment Health Maintenance Due Date Last Done Comments Hepatitis C Screening 1950 COVID-19 Vaccine (#1) 06[birth year]12/1950 Depression Screening 1961 Preventative Health Evaluation 12/14/1967 DTap / Tdap / Td (1 - Tdap) 1968 Colon Cancer Screening (Colonoscopy) 1994 Breast Cancer Screening (Mammogram) 12/14/1999 Shingrix-Zoster Vaccine (1 of 2) 12/14/1999 Fall Risk Assessment 2014 Osteoporosis Screening (DEXA Scan) 2014 Pneumococcal Vaccine (1 of 1 - PCV) 2014 Influenza Vaccine (#1) 2023 RSV Adult > 60+ Yrs or Pregn ant (1 - 1-dose 75+ series) 2024 Hepatitis B Vaccines Aged Out No long er eligible based on patient's age to complete this topic RSV Ped < 20 months Aged Out No longe r eligible based on patient's age to complete this topic Care Teams Boat Loader Relationship Specialty Start Date End Date Po, Rolo Muir MD [address] [facility] [address] [facility] [place] [address] PCP - General Internal Medicine 04/10/20
--- OUTSIDE RECORDS SUMMARY | 2024-08-04 13:55 | XMS_ITS | Clinical Summary ---
Author Organization [facility] Address [address] [place] [address] Phone Care Team Providers Care Client Services Associate Name Role Phone [facility] Unavailable [phone] Reason for Visit and Chief Complaint Established Patient Plan of Treatment Pending Tests Order Diagnosis Results Due Ordering P eagleder Follow Up - Appointment PRN Oth fx o f lower end r radius, subs for clos fx w routn heal 12/19/22 Bernard Cadet MD Last Documented On 3 9:37AM ; [facility] Assessments Includes: Assessments from this encounter No Assessments Recorded Medical Equipment - Implanted Devices Includes: Current Devices No Medical Equipment Recorded Medications Includes: Medications discussed during this encounter and other current Medications Current Medications (continue as prescribed) IBU 600 MG Oral Tablet 10/03/2022 Provider: Diagnosis: Last Documented On 3 8:52AM By Zackary Grove ; [facility] Medications Administered Includes: Administered Medications from this [...] Last Documented On 3 3:47PM ; [place] [facility], Encounters Encounter Provider Location Date Check-In Time Check-Out Time Diagnosis Established Patient Bernard Cadet MD [place] [facility] 12/20/19 23 9:20AM 9:37AM Insurance Includes: Active Insurance Policies Plan Name Member ID Group # Subscriber Relationship Effect thomas Dates 1 - Medicare Part B [facility] [id number] Nurys Guaman 2 - Medex [id number] Nurys Guaman Clinical Notes Includes: Clinical Notes from this encounter * Progress note Date Encounter Last Documented by 12/19/2022 Established Patient Johnnie reno on 12/19/2022; 9:38 AM, Bernard Cadet MD; [facility] Current Medication - IBU 600 MG Oral [...]
--- OUTSIDE RECORDS SUMMARY | 2024-08-04 13:55 | XMS_ITS | Patient Health Record ---
Author Organization [facility] Address [address] [place] [address] Care Team Providers Care Silk Printer Name Role Phone Rolo Richards MD Primary Care Provider Yoahn Brizuela [phone] Allergies Allergen (clinical drug ingredient) Drug/Non Drug Allergy documented on EMR Reaction Allergy Type Onset Date Status Sulfa Unknown Drug Allergy Active Reason For Referral No Information Medications Medication SIG (Take, Route, Fr equency, Duration) Notes Start Date End Date Status Raloxifene HCl 60 MG Oral for 90 Active Vitamin D3 Active Lisinopril 30 MG Oral for 90 A ctive Social History Tobacco Use: Social History Observation Description Date Details (start date - stop date) Former Smoker NA - NA Tobacco Use/Smoking Question Answer Notes Patient is a former smoker When did you stop smoking? 1996 How long has it been since you last smoked? > 10 years Section Notes: Nonsmoker; occasional alcoho l Nonsmoker; rare alcohol Nonsmoker; rare alcohol Problems Problem Type SNOMED Code ICD Code Onset Dates Problem Status W/U Status Risk Notes Problem [id number] Encounter for screening for malignant neoplasm of colon (Z12.11) Active confirmed Problem 583933817 Hx of adenomatous colonic polyps (Z86.010) Active confirmed Problem [id number] Pre-procedural examination (Z01.818) Active confirmed Vital Signs Blood pressure diastolic 00 mm Hg 02/13/2024 Height 61.5 in 02/13/2024 Blood pressure systolic 00 mm Hg 02/13/2024 Weight 162 lbs 02/13/2024 BMI 30.11 kg/m2 02/13/2024 Encounters Encounter Location Date Provider Diagnosis [facility] [address] [place] [address] 02/13/2024 Yohan Davison Hx of adenomatous colonic polyps Z86.010 ; Encounter for screening for malignant neoplasm of colon Z12.11 and Pre-procedural examination Z01.818 Assessments Encounter Date Diagnosis (ICD Code) Assessment Notes Treatment Notes Treatment Clinical Notes Section Notes 02/13/2024 Encounter for screening for malignant neoplasm of colon (ICD-10 - Z12.11) Overall, Nurys appears quite well. Given her age, excellent clinical appearance, her history of colon polyps, and her last colonoscopy being 6 years ago, I did recommend a followup colonoscopy for further screening purposes. We did review the rationale for this in regard to colon cancer prevention. Full consent was obtained for this, including risks of bleeding and perforation. The procedure will be done with monitored anesthesia care. 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 Given her excellent clinical appearance and clinical history, I don't think she needs the procedure done on a more urgent basis. Nurys was comfortable with this plan. Thank you again for allowing me to participate in Nurys's care. I shall continue to keep you advised of her progress. 02/13/2024 Hx of adenomatous colonic polyps (ICD-10 - Z86.010) Overall, Nurys appears quite well. Given her age, excellent clinical appearance, her history of colon polyps, and her last colonoscopy being 6 years ago, I did recommend a followup colonoscopy for further screening purposes. We did review the rationale for this in regard to colon cancer prevention. Full consent was obtained for this, including risks of bleeding and perforation. The procedure will be done with monitored anesthesia care. 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 Given her excellent clinical appearance and clinical history, I don't think she needs the procedure done on a more urgent basis. Nurys was comfortable with this plan. Thank you again for allowing me to participate in Nurys's care. I shall continue to keep you advised of her progress. 02/13/2024 Pre-procedural examination (ICD-10 - Z01.818) Overall, Nurys appears quite well. Given her age, excellent clinical appearance, her history of colon polyps, and her last colonoscopy being 6 years ago, I did recommend a followup colonoscopy for further screening purposes. We did review the rationale for this in regard to colon cancer prevention. Full consent was obtained for this, including risks of bleeding and perforation. The procedure will be done with monitored anesthesia care. 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 Given her excellent clinical appearance and clinical history, I don't think she needs the procedure done on a more urgent basis. Nurys was comfortable with this plan. Thank you again for allowing me to participate in Nurys's care. I shall continue to keep you advised of her progress. Plan Of Treatment Future Test Test Name Order Date COLONOSCOPY 12/03/2011 COLONOSCOPY 01/15/2018 COLONOSCOPY 02/13/2024 Next Appt Details Provider Name:Yohan Burks Saman , 08/27/2024 09:00:00 AM, [address] [place] [address] , [place], [place], [phone], Insurance Providers Payer Name Payer Address Payer Phone Subscriber Number Group Number Insured Name Patient Relationship to Insured Coverage Start Date Coverage End Date MEDICARE OF [place] [address] [facility] RASHAUN MICHAEL [id number] NURYS RODRIGUEZ Self - patient is the insured MEDEX ATTN CLAIMS [address] [place] [address] [id number] NURYS RODRIGUEZ Self - patient is the insured Medical (General) History Medical History History ICD Code Hyperlipidemia--off meds Hx of a serrated adenoma and tubular adenoma removed in 2004 and 2011, respectively. Hx of breast cancer treated with a right mastectomy and chemotherapy in 1999 Osteoporosis Denies [place],DM,CVA,Lung disease,renal dise ase Hypertension Colonoscopy 02/2018 with a small tubular adenoma Surgical History Surgery Date(Month/Year) Knee surgery Right mastectomy for cancer in 1999 with chemo Tubal ligation Cholecystectomy in 06/2011 Right Breast reconstruction x 3 Nose basal cell removal with Mohs surger y 2023
--- OUTSIDE RECORDS SUMMARY | 2024-08-04 13:55 | XMS_ITS ---
Care Plan - [facility] Created on: August 04, 2024 Nurys Da Silva : 1950 Sex: Female Author Organization [facility] Address [address] [place] [address] Phone Care Team Providers Care Ota Name Role Phone [facility] Unavailable Unavailable
--- OUTSIDE RECORDS SUMMARY | 2024-08-04 13:55 | XMS_ITS ---
Author Organization [facility] Address [address] [place] [address] Phone Care Team Providers Care Laboratory Courier Name Role Phone [facility] Unavailable [phone] Plan of Treatment No Plan of Treatment Recorded Assessments Includes: Assessments for all patient encounters No Assessments Recorded Medical Equipment - Implanted Devices Includes: Current and historical Devices No Medical Equipment Recorded Medications Includes: Current and historical Medications Current Medications (continue as prescribed) IBU 600 MG Oral Tablet 10/03/2022 Provider: Diagnosis: Last Documented On 3 8:52AM By Zackary Grove ; [facility] Medications Administered Includes: Administered Medications in patient's chart No Administered Medications Recorded Results Includes: Results from 08/05/2023 through 08/04/2024 No Results Recorded For Specified Dates History [...] Active Last Documented On 3 3:47PM ; [facility] Insurance Includes: Active Insurance Policies Plan Name Member ID Group # Subscriber Relationship Effect thomas Dates 1 - Medicare Part B [facility] [id number] Nurys Guaman 2 - Medex [id number] Nurys Guaman Clinical Notes Includes: Signed Clinical Notes starting from 03/24/2022 No Clinical Notes Recorded
--- OUTSIDE RECORDS SUMMARY | 2024-08-04 13:56 | XMS_ITS ---
Author Organization [facility] Address [address] [address] Care Team Providers Care Securities Consultant Name Role Phone Rolo Richards MD Primary Care Provider Yohan Brizuela [phone] REASON FOR VISIT Patient presents today for a recall colonoscopy Encounters Encounter Location Date Provider Diagnosis [facility] [address] [address] 09/16/2023 Yohan Davison Plan Of Treatment Next Appt Details Provider Name:Yohan Davison , 08/27/2024 09:00:00 AM, [address] [place] [address] , [place], [place], [phone], Progress Notes * EULALIO RODRIGUEZ ADOB: (73 yo F)Acc No.[id number]:09/16/2023 Progress Notes Patient:?ROSA RODRIGUEZ Provider:?Yohan Davison MD :1950???Age:72 Y???Sex:Female D ate:09/16/2023 Address:[address] [place], [place] [phone] Pcp:Rolo Richards MD Subjective: * Chief Complaints: [...]
--- OUTSIDE RECORDS SUMMARY | 2024-08-04 13:56 | XMS_ITS | Clinical Summary ---
Author Organization [facility] Address [address] [place] [address] Phone Care Team Providers Care Instructional Services Specialist Name Role Phone [facility] Unavailable [phone] Reason for Visit and Chief Complaint Established Patient Plan of Treatment Pending Tests Order Diagnosis Results Due Ordering P eagleder Follow Up - Appointment 1 Month Colles' fracture of right radius, init for clos fx 10/14/22 Bernard Cadet MD Last Documented On 3 9:57AM ; [facility] Assessments Includes: Assessments from this encounter No Assessments Recorded Medical Equipment - Implanted Devices Includes: Current Devices No Medical Equipment Recorded Medications Includes: Medications discussed during this encounter and other current Medications Current Medications (continue as prescribed) IBU 600 MG Oral Tablet 10/03/2022 Provider: Diagnosis: Last Documented On 3 8:52AM By Zackary Grove ; [facility] Medications Administered Includes: Administered Medications from this encounter No Administered Medications Recorded Vital Signs Includes: Vital Signs from this encounter Vital Name 10/14/2022 09:50A Blood Pressure Sitting (mmHg) 153/80 Pulse Rate-Sitting (bpm) 105 Temp-Temporal 97.3 Height (in) 62 Weight (lb) 160 Body Mass Index 29.3 Body Surface Area 1.7 Oxygen Saturation (%) 96 Last Documented: On 10/14/2022 9:51AM ; [facility] Results Includes: Results discussed during this encounter [...] Last Documented On 3 3:47PM ; [facility] Encounters Encounter Provider Location Date Check-In Time Check-Out Time Diagnosis Established Patient Bernard Cadet MD [facility] 10/15/19 23 10:00AM 9:58AM Insurance Includes: Active Insurance Policies Plan Name Member ID Group # Subscriber Relationship Effect thomas Dates 1 - Medicare Part B [facility] [id number] Nurys Da Silva Self 2 - Medex [id number] Nurys Da Silva Self Clinical Notes Includes: Clinical Notes from this encounter * Progress note Date Encounter Last Documented by 10/14/2022 Established Patient Johnnie reno on 10/14/2022; 9:57 AM, Bernard Cadet MD; [facility] Current Medication - IBU 600 MG [...]
--- OUTSIDE RECORDS SUMMARY | 2024-08-04 13:56 | XMS_ITS | Clinical Summary ---
Author Organization [facility] it Address [address] [place] [address] Care Team Providers Care Track Surfacing Machine Operator Name Role Phone Rolo Richards MD Primary Care Provider Surgical History Surgery Date Site/Laterality Comments KNEE SURGERY PROCEDURE:KNEE SURGERY;COMMENT:rt Medical History Medical History Date Comments Cancer (CMS/HCC V24, CMS/HCC V28) DX:Cancer (HCC) Hypertension DX:Hypertension Lyme disease DX:Lyme disease Osteopenia DX:Osteopenia Family History Medical History Relation Name Comments Heart disease Father Diabetes Mother Heart disease Mother Relation Name Status Comments Father Mother Social History Tobacco Use Types Packs/Day Years Used Date Smoking Tobacco: Former Cigarettes Q uit: 04/14/1996 Smokeless Tobacco: Never Alcohol Use Standard Drinks/Week Comments No 0 (1 standard drink = 0.6 oz pur e alcohol) Comments Unknown Sex and Gender Information Value Date Recorded Sex Assigned at Not on file Legal Sex Female 12:18 AM EST Gender Identity Not on file Sexual Orientation Not on file Obstetrics History Plan of Treatment Health Maintenance Due Date Last Done Comments Breast Cancer Screening 1950 DTaP,Tdap,and Td Vaccines (1 - Tdap) 1968 Pneumococcal Vaccine: 50+ Ye ars (1 of 1 - PCV) 12/14/1999 Zoster Vaccines (1 of 2) 12/14/1999 Colorectal Cancer Screening: Colonoscopy 03/17/2022 Depression Screening 03/17/2022 Falls Risk Assessment 03/17/2022 Hepatitis C Screening 03/17/2022 Osteoporosis Screening (Bone Density Screening) 03/17/2022 Social Influencers of Health Screening 03/17/2022 COVID-19 Vaccine (2023-2 5 season) 2023 Influenza Vaccine (Season Ended) 2024 RSV Immunization Adult Patie nts (1 - 1-dose 75+ series) 2024 HIB Vaccines Aged Out No longer eligi ble based on patient's age to complete this topic HPV Vaccines Aged Out No longer eligi ble based on patient's age to complete this topic Hepatitis A Vaccines Aged Out No long er eligible based on patient's age to complete this topic Hepatitis B Vaccines Aged Out No long er eligible based on patient's age to complete this topic IPV Vaccines Aged Out No longer eligi ble based on patient's age to complete this topic MMR Vaccines Aged Out No longer eligi ble based on patient's age to complete this topic Meningococcal ACWY Vaccine Aged Out N o longer eligible based on patient's age to complete this topic Meningococcal B Vaccine Aged Out No l onger eligible based on patient's age to complete this topic RSV Immunization Patients Un bipin 20 months Aged Out No longer eligible b ased on patient's age to complete this topic Varicella Vaccines Aged Out No longer eligible based on patient's age to complete this topic Care Teams Track Surfacing Machine Operator Relationship Specialty Start Date End Date Rolo Richards MD [address] [place] [address] [address] [facility] [place] [address] PCP - General Internal Medicine 04/10/20
--- OUTSIDE RECORDS SUMMARY | 2024-08-04 13:56 | XMS_ITS | Clinical Summary ---
Author Organization [facility] Address [address] [place] [address] Phone Care Team Providers Care Lens Silverer Name Role Phone [facility] Unavailable [phone] Reason for Visit and Chief Complaint Medicare New Patient Plan of Treatment Pending Tests Order Diagnosis Results Due Ordering P rovider Follow Up - Appointment 1 Week Colles' fracture of right radius, init for clos fx 10/03/22 Bernard Cadet MD Last Documented On 3 9:03AM ; [facility] Assessments Includes: Assessments from this encounter No Assessments Recorded Medical Equipment - Implanted Devices Includes: Current Devices No Medical Equipment Recorded Medications Includes: Medications discussed during this encounter and other current Medications Current Medications (continue as prescribed) IBU 600 MG Oral Tablet 10/03/2022 Provider: Diagnosis: Last Documented On 3 8:52AM By Zackary Grove ; [facility] Medications Administered Includes: Administered Medications from this encounter No Administered Medications Recorded Vital Signs Includes: Vital Signs from this encounter Vital Name 10/03/2022 08:51A Blood Pressure Sitting (mmHg) 187/83 Pulse Rate-Sitting (bpm) 113 Temp-Temporal 97.2 Height (in) 62 Weight (lb) 160 Body Mass Index 29.3 Body Surface Area 1.7 Oxygen Saturation (%) 96 Last Documented: On 10/03/2022 8:51AM ; [facility] Results Includes: Results discussed during this [...] Last Documented On 3 3:47PM ; [facility] Encounters Encounter Provider Location Date Check-In Time Check-Out Time Diagnosis Medicare New Patient Bernard Cadet MD [facility] 10/04/19 9:00AM 9:19AM Insurance Includes: Active Insurance Policies Plan Name Member ID Group # Subscriber Relationship Effect thomas Dates 1 - Medicare Part B [facility] [id number] Nurys Da Silva Self 2 - [employer] [id number] Nurys Guaman Clinical Notes Includes: Clinical Notes from this encounter * Progress note Date Encounter Last Documented by 10/03/2022 Medicare New Patient Last docume nted on 10/03/2022; 9:04 AM, Bernard Cadet MD; [facility] Current Medication - IBU 600 MG [...] CT of the right wrist performed at [facility] on 09/30/2022 are reviewed. There is [...]
--- OUTSIDE RECORDS SUMMARY | 2024-08-04 13:56 | XMS_ITS | Clinical Summary ---
Author Organization [facility] Address [address] [place] [address] Phone Care Team Providers Care Broomcorn Thresher Name Role Phone [facility] Unavailable [phone] Reason for Visit and Chief Complaint Established Patient Plan of Treatment Pending Tests Order Diagnosis Results Due Ordering P claudia Follow Up - Appointment 1 Month Oth fx o f lower end r radius, subs for clos fx w routn heal 11/14/22 Bernard Cadet MD Last Documented On 3 10:26AM ; [facility] Assessments Includes: Assessments from this encounter No Assessments Recorded Medical Equipment - Implanted Devices Includes: Current Devices No Medical Equipment Recorded Medications Includes: Medications discussed during this encounter and other current Medications Current Medications (continue as prescribed) IBU 600 MG Oral Tablet 10/03/2022 Provider: Diagnosis: Last Documented On 3 8:52AM By Zackary Grove ; [facility] Medications Administered Includes: Administered Medications from this encounter No Administered Medications Recorded Vital Signs Includes: Vital Signs from this encounter Vital Name 11/14/2022 10:16A Blood Pressure Sitting (mmHg) 143/80 Pulse Rate-Sitting (bpm) 99 Temp-Temporal 97.1 Height (in) 62 Weight (lb) 156 Body Mass Index 28.5 Body Surface Area 1.7 Oxygen Saturation (%) 94 Last Documented: On 11/14/2022 10:17A M ; [facility] Results Includes: Results discussed during this encounter [...] Active Last Documented On 3 3:47PM ; [facility] Encounters Encounter Provider Location Date Check-In Time Check-Out Time Diagnosis Established Patient Bernard Cadet MD [facility] 11/15/19 10:00AM 10:24AM Insurance Includes: Active Insurance Policies Plan Name Member ID Group # Subscriber Relationship Effect thomas Dates 1 - Medicare Part B [facility] [id number] Nurys Da Silva Self 2 - [employer] [id number] Nurys Da Silva Self Clinical Notes Includes: Clinical Notes from this encounter * Progress note Date Encounter Last Documented by 11/14/2022 Established Patient Last marquis reno on 11/14/2022; 10:26 AM, Bernard Cadet MD; [facility] Current Medication - IBU 600 MG [...]
--- OUTSIDE RECORDS SUMMARY | 2024-08-04 13:56 | XMS_ITS ---
Author Organization [facility] Address [address] [place] [address] Care Team Providers Care Dental Lab Technician Name Role Phone Rolo Richards MD Primary Care Provider Yohan Brizuela [phone] Allergies Allergen (clinical drug ingredient) Drug/Non Drug Allergy documented on EMR Reaction Allergy Type Onset Date Status Sulfa Unknown Drug Allergy Active REASON FOR VISIT patient presents today for recall colonoscopy Medications Medication SIG (Take, Route, Fr equency, [...] former smoker When did you stop smoking? 1997 How long has it been since you last smoked? > 10 years Section Notes: Nonsmoker; rare alcohol Vital Signs Blood pressure systolic 00 mm Hg 02/13/20 24 Blood pressure diastolic 00 mm Hg 024 Height 61.5 in 02/13/2024 Weight 162 lbs 02/13/2024 BMI 30.11 kg/m2 02/13/2024 Encounters Encounter Location Date Provider Diagnosis [facility] [address] [place] [id number] 02/13/2024 Yohan Davison Hx of adenomatous colonic polyps Z86.010 ; Encounter for screening for malignant neoplasm of colon Z12.11 and Pre-procedural examination Z01.818 Assessments Encounter Date Diagnosis (ICD Code) Assessment Notes Treatment Notes Treatment Clinical Notes Section Notes 02/13/2024 Hx of adenomatous colonic polyps [...] 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 Given her excellent clinical appearance and clinical history, I don't think she needs the procedure done on a more urgent basis. Nurys was comfortable with this plan. Thank you again for allowing me to participate in Nurys's care. I shall continue to keep you advised of her progress. 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 be scheduled [...] Details Follow Up: prn, Reason: Provider Name:Yohan Davison , 08/27/2024 09:00:00 AM, [address] [place] [address] , [place], [place], [id number], Progress Notes * JENNIFER NURYS ADOB: (73 yo F)Acc No.[id number]:02/13/2024 Progress Notes Patient:?JENNIFER ROSA H A Provider:?Yohan Davison MD :1950???Age:73 Y???Sex:Female D ate:02/13/2024 Address:[address] [place] [address] Pcp:Rolo Richards MD Subjective: * Chief Complaints: * ???Patient presents today fo r recall colonoscopy * HPI: ???incontinence:? I saw Nurys in the office today for evaluation of her personal history of colon polyps and need for colorectal cancer screening. ?I last saw Nurys in February of 2018, at which time she underwent a followup colonoscopy with removal of a small tubular adenoma. She presently feels very well. She enjoys a good appetite. She denies any significant heartburn or dysphagia. Her bowel movements have been regular and she denies any signs of hematochezia nor melena. She denies abdominal pain, jaundice, nor unintentional weight loss. She denies any known family history of colon cancer. ?Laboratories in October revealed a normal CBC, chemistries and renal function, and normal LFTs. * ROS:?General/Constitutional:?Change in appetite?denies.?Chills?denies.?Fatigue?denies.?Ophthalmologic:?Patient denies? Negative..?ENT:?Patient denies?Negative..?Respiratory:?Patient denies?No coughing/hemoptysis..?Cardiovascular:?Patient denies? No chest pain/orthopnea..?Gastrointestinal:?Comments?See HPI for details.?Genitourinary:?Patient denies? No dysuria/hematuria..?Musculoskeletal:?Patient denies? No specific arthralgias/myalgias..?Skin:?Patient denies?No rash/pruritus..?Neurologic:?Patient denies? No headaches/seizures..?Psychiatric:?Patient denies?Negative..? * Medical History:? 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 * Family History:?Father: dece ased, diagnosed with Heart disease.?Mother: , diagnosed with Diabetes, Heart disease.? No known hx of colon cancer polyps. * Social History:?Tobacco Use:?Tobacco Use/Smoking?Patient is a?former smoker,?When did you stop smoking??1996,?How long has it been since you last smoked??> 10 years.?Drugs/Alcohol:?Alcohol Screen?Points: 3, Interpretation: Positive.?Miscellaneous:?Marital status: She is a . 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 ???Nonsmoker; rare alcohol. * Medications:?TakingVitamin D 3 Raloxifene HCl 60 MG Tablet Oral Lisinopril 30 MG Tablet Oral Taking Vitamin D3 Taking Raloxifene HCl 60 MG Tablet Oral Taking Lisinopril 30 MG Tablet Oral * Allergies:?Sulfayes[Allergie s Verified] Objective: * Vitals:?Wt: 162 lbs, Ht: 61. 5 in, BMI:30.11 Index, BP: 00/00 mm Hg. * Examination: ???General Examination: ?GENERAL APPEARANCE:?pleasant, well nourished, well developed, in no acute distress.?EYES:?sclera non-icteric.?ORAL CAVITY:?mucosa moist.?NECK/THYROID:?no cervical lymphadenopathy, neck supple.?SKIN:?nonjaundiced, no spider angiomata..?HEART:?S1, S2 normal.?LUNGS:?clear to auscultation bilaterally.?ABDOMEN:?normal bowel sounds, no guarding or rigidity, no hepatosplenomegaly, no masses palpable, soft, nontender, nondistended..?EXTREMITIES:?no edema.?NEUROLOGIC:?alert and oriented.? Assessment: * Assessment: 1.?Encounter for screening f or malignant neoplasm of colon - Z12.11 (Primary)?2.?Hx of adenomatous colonic polyps - Z86.010?3.?Pre-procedural examination - Z01.818? Overall, Nurys appears q uite well. 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 Given her excellent clinical appearance and clinical history, I don't think she needs the procedure done on a more urgent basis. Nurys was comfortable with this plan. Thank you again for allowing me to participate in Nurys's care. I shall continue to keep you advised of her progress. Plan: * Treatment: 2.?Hx of adenomatous colonic polyps?Procedure: COLONOSCOPY (Ordered for 02/13/2024)* with MACsched for 08/27/24 at 9:00 ammiralax * Procedure Codes:? * Preventive Medicine:? ??Counseling:?Care goal follow-up plan:?Above Normal BMI Follow-up?Giving encouragement to exercise,?BMI management provided?Yes.? ??Urinary Incontinence:?Urinary Incontinence?Assessment:?Present,?Plan of care documented:?Yes,?Type of plan of care:?Lifestyle interventions.? ??Screenings:?Fall Risk Screening?Fall Risk Assessment:?One fall with injury in the past year,?Screening:?One fall with injury in the past year,?Assessment: Not performed, no reason specified,?Plan of Care:?Not documented, no reason specified.? * Follow Up:?prn * * Sign off status: Completed true * Provider:?Yohan Davison MD Date:? 024 Generated for Keyanna rivero/Chema/Dhara on:?08/04/2024 01:55 PM EDT History and Physical Notes * HPI (History of Present Illness) Category Sub-Category Detail Notes Category Not es incontinence I saw Nurys in the office today for evaluation of her personal history of colon polyps and need for colorectal cancer screening. I last saw Nurys in February of 2018, at which time she underwent a followup colonoscopy with removal of a small tubular adenoma. She presently feels very well. She enjoys a good appetite. She denies any significant heartburn or dysphagia. Her bowel movements have been regular and she denies any signs of hematochezia nor melena. She denies abdominal pain, jaundice, nor unintentional weight loss. She denies any known family history of colon cancer. Laboratories in October revealed a normal CBC, chemistries and renal function, and normal LFTs. Examination Category Sub-Category Detail Notes Category Not es General Examination GENERAL APPEARANCE: pleasant , well [...]
[2024-08-25 10:23] VITALS: BMI 30.1
--- NOTE | 2024-08-26 09:35 | HO.ANESPROP2 ---
Documented by User: Rashida Mena NP 08/26/24 09:35 HPI - Anesthesia Eval Consult details Narrative: 73yo F for Colonoscopy PMFSH Active Problems Active Problems: All Active Problems Eczema (Acute) Gustatory rhinitis (Acute) UTI (urinary tract infection) (Acute) Benign paroxysmal positional vertigo (Acute) Lesion of thoracic vertebra (Acute) Pulmonary nodule (Acute) Lung density on x-ray (Acute) Cough (Acute) Basal cell carcinoma (Acute) Colon cancer screening (Acute) COVID-19 virus infection (Acute) Hypertension (Acute) Nasal bone fracture (Acute) Right wrist fracture (Acute) Otitis media (Acute) Encounter for subsequent annual wellness visit in Medicare patient (Acute) SOB (shortness of breath) on exertion (Acute) Impaired glucose tolerance (Acute) Insomnia (Acute) Osteoarthritis (Acute) Osteopenia (Acute) Overweight (BMI 25.0-29.9) (Acute) Hypercholesterolemia (Acute) Past Medical History Medical History History of Mohs micrographic surgery for skin cancer Osteoporosis History of chemotherapy Breast cancer screening by mammogram Alopecia Medicare annual wellness visit, initial Knee pain, right Shoulder pain, bilateral Overweight (BMI 25.0-29.9) Impaired glucose tolerance Hypercholesterolemia Osteopenia Pituitary adenoma Tubular adenoma of colon History of breast cancer Family History Family History Father Dementia Alcoholism Mother Congenital heart disease Cancer Sister Breast cancer Sister CAD (coronary artery disease) Surgical History Surgical History Hx of tubal ligation History of surgery History of orthopedic surgery History of cataract surgery History of colonoscopy History of arthroscopy of right knee H/O right mastectomy History of cholecystectomy Social History Social History Housing: House Are you a primary acute care occupational therapist to a significant other at home: No Do you presently have visiting nurse or other home services: No Alcohol intake: current Alcohol intake frequency: holidays/special occasions only Comment: 2x a month 1-2 drinks Patient Tobacco Use Status: Former Tobacco user Tobacco use type: Cigarette Years Smoked: 27 Smoked in Last 30 Days: No e-Cigarette/Vaping Use: Never Used Second Hand Smoke Exposure: No Use of substances other than those prescribed or required for medical reasons: No Have you been hit, kicked, punched, or otherwise hurt by someone within the past year? If so, by whom?: No Are you DNR?: No Advance Directives: No Advance Directives Information Provided: No Advance Directives on File: No Advance Directives Date on File: 05/14/21 Patient : No : No Poor oral hygiene: No Current occupational status: retired Cognitive needs: No Hearing needs: No Vision needs: Yes Meds Allergies Allergy/AdvReac Type Severity Reaction Status Date / Time Sulfa (Sulfonamide Allergy Unknown Unknown Verified 08/27/24 08:01 Antibiotics) [SULFA(SULFONAMIDE ANTIBIOTICS)] amlodipine AdvReac Intermediate Leg Verified 08/27/24 08:01 swelling Home Medications ?Medication ?Instructions ?Recorded ?Confirmed ?Last Taken ?Type cholecalciferol (vitamin D3) 25 25 mcg PO DAILY 01/23/22 08/27/24 Unknown History mcg (1,000 unit) capsule BURNJARO 1 cap PO DAILY 08/25/24 08/27/24 08/26/24 History Exam Height,Weight and Vital Signs: Height 5 ft 1.5 in Weight 73.482 kg Assessment and Plan Assessment Anesthesia Assessment: Chart Reviewed Documented by User: Jaylin Heredia MD 08/27/24 08:49 [facility] Past Medical History Medical History History of Mohs micrographic surgery for skin cancer Osteoporosis History of chemotherapy Breast cancer screening by mammogram Alopecia Medicare annual wellness visit, initial Knee pain, right Shoulder pain, bilateral Overweight (BMI 25.0-29.9) Impaired glucose tolerance Hypercholesterolemia Osteopenia Pituitary adenoma Tubular adenoma of colon History of breast cancer Family History Family History Father Dementia Alcoholism Mother Congenital heart disease Cancer Sister Breast cancer Sister CAD (coronary artery disease) Surgical History Surgical History Hx of tubal ligation History of surgery History of orthopedic surgery History of cataract surgery History of colonoscopy History of arthroscopy of right knee H/O right mastectomy History of cholecystectomy History of Problems with Anesthesia: No Social History Social History Housing: House Are you a primary acute care occupational therapist to a significant other at home: No Do you presently have visiting nurse or other home services: No Alcohol intake: current Alcohol intake frequency: holidays/special occasions only Comment: 2x a month 1-2 drinks Patient Tobacco Use Status: Former Tobacco user Tobacco use type: Cigarette Years Smoked: 27 Smoked in Last 30 Days: No e-Cigarette/Vaping Use: Never Used Second Hand Smoke Exposure: No Use of substances other than those prescribed or required for medical reasons: No Have you been hit, kicked, punched, or otherwise hurt by someone within the past year? If so, by whom?: No Are you DNR?: No Advance Directives: No Advance Directives Information Provided: No Advance Directives on File: No Advance Directives Date on File: 05/14/21 Patient : No : No Poor oral hygiene: No Current occupational status: retired Cognitive needs: No Hearing needs: No Vision needs: Yes Meds Allergies Allergy/AdvReac Type Severity Reaction Status Date / Time Sulfa (Sulfonamide Allergy Unknown Unknown Verified 08/27/24 08:01 Antibiotics) [SULFA(SULFONAMIDE ANTIBIOTICS)] amlodipine AdvReac Intermediate Leg Verified 08/27/24 08:01 swelling Home Medications ?Medication ?Instructions ?Recorded ?Confirmed ?Last Taken ?Type cholecalciferol (vitamin D3) 25 25 mcg PO DAILY 01/23/22 08/27/24 Unknown History mcg (1,000 unit) capsule BURNJARO 1 cap PO DAILY 08/25/24 08/27/24 08/26/24 History Exam Airway Mallampati Class: II TM Dist: >3cm Neck ROM: Full Denture: Upper and Lower Loose/Missing/Broken Teeth: Yes, Upper and Lower Heart: RRR Lungs: CTA Assessment and Plan Assessment Anesthesia Assessment: Anesthesia Plan Discussed Final Anesthetic Review History of Problems with Anesthesia: No NPO: Yes ASA Class: II Final Preanesthetic Review: Meds/Allgs Chart Reviewed, Consent Obtained/Reviewed and Anes Risks/Benef Reviewed Patient Risk: Low Procedure Risk: Low Anesthetic Plan Anesthetic Plan: MAC: Disposition: Standard PACU
[2024-08-27 08:04] VITALS: BP 140/79; PULSE 101; RESP 16; TEMP 37.3; O2SAT 95; BMI 29.3
[2024-08-27] MEDS: Lactated Ringers 1,000 ML 100 ML IVCONT (08:20)
--- NOTE | 2024-08-27 09:11 | PC.NURSE ---
Patient taking OTC supplement Burnjaro for weight loss. Dr. Heredia made aware.
[2024-08-27 09:57] VITALS: BP 135/100; PULSE 94; RESP 18; TEMP 36.4; O2SAT 99
--- NOTE | 2024-08-27 10:02 | P.BOP_ITS ---
Brief Operative Note Date of Service: 08/27/24 Pre-op diagnosis: Screening Post-op diagnosis: other (Rectal polyps) Procedure: Colonoscopy to the cecum and TI with bx/removal of polyps Surgeon: Yohan Davison MD Anesthesia: MAC Was an Fish Hatchery Superintendent used for this Procedure?: No Estimated blood loss (mL): 2.0 Pathology: other (A. Rectal polyps) Condition: stable Disposition: PACU
[2024-08-27 10:12] VITALS: BP 119/53; PULSE 89; RESP 16; O2SAT 97
[2024-08-27 10:25] VITALS: BP 122/60; PULSE 98; RESP 16; TEMP 36.3; O2SAT 97
--- NOTE | 2024-08-27 10:44 | OP_ITS ---
DATE OF SERVICE: 08/27/2024 SURGEON: Yohan Davison MD INDICATIONS: The patient presents for evaluation of colorectal cancer screening and personal history of colon polyps. Full consent obtained from her for this, including risks of bleeding and perforation. PREOPERATIVE DIAGNOSIS: POSTOPERATIVE DIAGNOSIS: PROCEDURE PERFORMED: Colonoscopy to the cecum and terminal ileum with biopsy and removal of polyps. ESTIMATED BLOOD LOSS: COMPLICATIONS: ANESTHESIA: Medication used; monitored anesthesia care. ASSISTANTS: SPECIMENS: PREOPERATIVE DIAGNOSES: Colorectal cancer screening and personal history of tubular adenoma of the colon. POSTOPERATIVE DIAGNOSES: Colorectal cancer screening and personal history of tubular adenoma of the colon, rectal polyps, diverticulosis, and internal hemorrhoids. DESCRIPTION OF PROCEDURE: The patient was placed in the left lateral decubitus position. The digital rectal exam revealed no abnormalities. The Olympus video pediatric colonoscope was entered into the rectum and advanced easily to the cecum. Once in the cecum, I did identify normal-appearing cecal pouch with appendiceal orifice and a normal-appearing ileocecal valve. The terminal ileum was cannulated and appeared normal. The scope was withdrawn back in the colon. The entire cecum and ileocecal valve appeared normal. The scope was then slowly withdrawn assessing all mucosal surfaces carefully. Preparation was excellent. In the rectum, there were 2 flat less than 5 mm polyps, both of which were biopsied and completely removed with cold biopsy forceps. I did not visualize any other polyps, colitis, or angiodysplasia. There was a mild amount of sigmoid diverticulosis. In the rectum, scope was retroflexed visualizing internal hemorrhoids, but no other pathology. The rectal mucosa appeared normal. Scope was straightened and withdrawn from the patient. She tolerated the procedure well and was returned to recovery area in stable condition. IMPRESSION: 1. Small rectal polyps. 2. Diverticulosis. 3. Internal hemorrhoids. PLAN: The results of biopsy will be checked. Given her age and these minimal findings, I do not think she will need any further screening colonoscopies. She will otherwise see me on a p.r.n. basis. MD MARCEL Helm/ALVARO / [phone]
== END 2024-08-27 10:49 | disposition home or self-care (01) ==
PROVIDERS: PCP Internal Medicine; Visit Provider Internal Medicine
PROC: 0DJD8ZZ Inspection of Lower Intestinal Tract, Via Natural or Artificial Opening Endoscopic (ICD-10-PCS; CPT 45378; principal; 2024-08-27 09:00)
DX: Z12.11 Encounter for screening for malignant neoplasm of colon (principal); Z86.0101 Personal history of adenomatous and serrated colon polyps; K62.1 Rectal polyp; K57.30 Diverticulosis of large intestine without perforation or abscess without bleeding; K64.8 Other hemorrhoids; Z85.3 Personal history of malignant neoplasm of breast; Z90.11 Acquired absence of right breast and nipple; Z92.21 Personal history of antineoplastic chemotherapy; I10 Essential (primary) hypertension; M81.0 Age-related osteoporosis without current pathological fracture; Z79.899 Other long term (current) drug therapy; Z88.2 Allergy status to sulfonamides; Z88.8 Allergy status to other drugs, medicaments and biological substances; Z90.49 Acquired absence of other specified parts of digestive tract; Z85.828 Personal history of other malignant neoplasm of skin; Z98.890 Other specified postprocedural states; Z87.891 Personal history of nicotine dependence
CPT/HCPCS: 45380; 88305; J2003; J2704

== ENCOUNTER 2024-12-15 08:40 | Outpatient (REF) | payer MEDICARE, SELFPAY ==
--- OUTSIDE RECORDS SUMMARY | 2023-09-16 05:10 | XMS_ITS ---
Author Organization [facility] Address [address] [facility] [address] [place] [phone] Care Team Providers Care Flatwork Finisher Hand Name Role Phone Rolo Richards MD Primary Care Provider Yohan Brizuela [phone] REASON FOR VISIT Patient presents today for a recall colonoscopy Encounters Encounter Location Date Provider Diagnosis [facility] [address] [facility] [address] [place] [phone] 09/16/2023 Yohan Davison Plan Of Treatment No Information Progress Notes * JESOLO EULALIO ADOB: (74 yo F)Acc No.[id number]:09/16/2023 Progress Notes Patient: EULALIO KIM Provider: Trevin Davison MD :1950 A ge:72 Y S ex:Female Date:09/16/2023 Address:[address] [place], [place] [phone] Pcp:Rolo Richards MD Subjective: * Chief Complaints: [...] 09/16/2023 Generated for Printi ng/Faxing/eTransmitting on: 0 12/15/2024 09:08 AM EDT
--- OUTSIDE RECORDS SUMMARY | 2024-02-12 05:00 | XMS_ITS ---
Author Organization [facility] Address [address] [facility] [address] [place] [phone] Care Team Providers Care Stock Analyst Name Role Phone Rolo Richards MD Primary Care Provider Yohan Brizuela [phone] REASON FOR VISIT Patient presents today for a recall colonoscopy Encounters Encounter Location Date Provider Diagnosis [facility] [address] [facility] [address] [place] [phone] 02/12/2024 Yohan Davison Plan Of Treatment No Information Progress Notes * JEZOEYRICKY HAINESEULALIO ADOB: (74 yo F)Acc No.[id number]:02/12/2024 Progress Notes Patient: EULALIO KIM Provider: Trevin Davison MD :1950 A ge:73 Y S ex:Female Date:02/12/2024 Address:[address] [place], [place] [phone] Pcp:Rolo Richards MD Subjective: * Chief Complaints: [...] Pending * Provider: Trevin Davison MD Date: 1 Generated for Printi ng/Faxing/eTransmitting on: 0 12/15/2024 09:08 AM EDT
--- OUTSIDE RECORDS SUMMARY | 2024-08-27 05:00 | XMS_ITS ---
Author Organization [facility] Address [address] [place] [address] Care Team Providers Care Rock Singer Name Role Phone Po Rolo CHAPMAN Primary Care Provider Yohan Brizuela [phone] REASON FOR VISIT screening,hx polyps Encounters Encounter Location Date Provider Diagnosis [facility] Outpatient [address] [place], [place] [id number] 08/27/2024 Yohan Davison Colon cancer scree christopher Z12.11 ; Benign neoplasm of rectum D12.8 ; Diverticulosis of large intestine without perforation or abscess without bleeding K57.30 and Other hemorrhoids K64.8 Assessments Encounter Date Diagnosis (ICD Code) Assessment Notes Treatment Notes Treatment Clinical Notes Section Notes 08/27/2024 Colon cancer screening (ICD-10 - Z12.11) 08/27/2024 Benign neoplasm of rectum (ICD-10 - D12.8) 08/27/2024 Diverticulosis of large intestine without perforation or abscess without bleeding (ICD-10 - K57.30) 08/27/2024 Other hemorrhoids (ICD-10 - K64.8) Plan Of Treatment No Information Progress Notes * EULALIO RODRIGUEZ ADOB: (74 yo F)Acc No.[id number]:08/27/2024 COLON WITH MAC Patient: Kimmie LEGGETTEULALIO BANDA Provider: Trevin Davison MD :1950 A ge:73 Y S ex:Female Date:08/27/2024 Address:[address] [place], [place] [id number] Pcp:Rolo Richards MD Subjective: * Chief Complaints: * 1 . Screening,hx polyps. * Medical History: Objective: * Vitals: Assessment: * Assessment: 1. C olon cancer screening - Z12.11 (Primary) 2 . B enign neoplasm of rectum - D12.8 3 . D iverticulosis of large intestine without perforation or abscess without bleeding - K57.30 4 . O ther hemorrhoids - K64.8 Plan: * Treatment: * Procedure Codes: 4 5380 COLONOSCOPY AND BIOPSY, Modifiers: PT , 0529F INTRVL 3+YRS PTS CLNSCP DOCD, 0528F RCMND FLW-UP 10 YRS DOCD * * The named appointment provid er may or may not be the originator of this progress note, and it is not deemed complete until electronically signed by the appointment provider. Sign off status: Pending * Provider: Trevin Davison MD Date: 0 08/27/2024 Generated for Keyanna rivero/Chema/Damienitting on: 0 12/15/2024 09:08 AM EDT
[2024-12-15 09:01] LABS: MANUAL DIFF FLAG NO
--- OUTSIDE RECORDS SUMMARY | 2024-12-15 09:08 | XMS_ITS | Clinical Summary ---
Author Organization [facility] it Address [address] [place] [address] Care Team Providers Care Medicare Nurse Name Role Phone Rolo Richards MD Primary Care Provider [phone] Surgical History Surgery Date Site/Laterality Comments KNEE [...] Health Maintenance Due Date Last Done Comments DTaP,Tdap,and Td Vaccines (1 - Tdap) 1968 Pneumococcal Vaccine: 50+ Ye ars (1 of 1 - PCV) 12/14/1999 Zoster Vaccines (1 of 2) 12/14/1999 Colorectal Cancer Screening: Colonoscopy 03/17/2022 Falls Risk Assessment 03/17/2022 Hepatitis C Screening 03/17/2022 Osteoporosis Screening (Bone Density Screening) 03/17/2022 Social Influencers of Health Screening 03/17/2022 Depression Screening 04/14/2024 COVID-19 Vaccine ( - 2023-2 5 season) 2024 Influenza Vaccine (#1) 2024 RSV Immunization Adult Patie nts (1 [...] age to complete this topic Care Teams Medicare Nurse Relationship Specialty Start Date End Date Rolo Richards MD [address] [place] [address] Dr [address] [facility] [place] [address] PCP - General Internal Medicine 04/10/20
--- OUTSIDE RECORDS SUMMARY | 2024-12-15 09:08 | XMS_ITS | Patient Health Record ---
Author Organization [facility] Address [address] [place] [address] Care Team Providers Care Bus Van Driver Name Role Phone Rolo Richards MD Primary Care Provider Yohan Brizuela [phone] Allergies Allergen (clinical drug ingredient) Drug/Non Drug Allergy documented on EMR Reaction Allergy Type Onset Date Status Sulfa Unknown Drug Allergy Active Results Component Value Reference Range Notes Pathology (Not yet reviewed by provider) Interpretation: Performing Lab:[facility], [address] [place] [address] Notes/Report: Reason For Referral No Information Medications Medication [...] Problem Status W/U Status Risk Notes Problem 786931352 Encounter for screening for malignant neoplasm of colon (Z12.11) Active confirmed Problem 471625731 Hx of adenomatous colonic polyps (Z86.010) Active confirmed Problem 002635515991179 Pre-procedural examination (Z01.818) Active confirmed Vital Signs Blood pressure diastolic 00 mm Hg 02/13/2024 Height 61.5 in 02/13/2024 Blood pressure systolic 00 mm Hg 02/13/2024 Weight 162 lbs 02/13/2024 BMI 30.11 kg/m2 02/13/2024 Encounters Encounter Location Date Provider Diagnosis [facility] Out[facility] [address] [place], [place] [phone] 08/27/2024 Yohan Davison Colon cancer screeni ng Z12.11 ; Benign neoplasm of rectum D12.8 ; Diverticulosis of large intestine without perforation or abscess without bleeding K57.30 and Other hemorrhoids K64.8 [facility] [address] [place] [address] 02/13/2024 Yohan Davison Hx of adenomatous colonic polyps Z86.010 ; Encounter for screening for malignant neoplasm of colon Z12.11 and Pre-procedural examination Z01.818 Assessments Encounter Date Diagnosis (ICD Code) Assessment Notes Treatment Notes Treatment Clinical Notes Section Notes 08/27/2024 Colon cancer screening (ICD-10 - Z12.11) 08/27/2024 Benign neoplasm of rectum (ICD-10 - D12.8) 02/13/2024 Encounter for screening for malignant neoplasm [...] 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 Given her excellent clinical appearance and clinical history, I don't think she needs the procedure done on a more urgent basis. Nurys was comfortable with this plan. Thank you again for allowing me to participate in Nurys's care. I shall continue to keep you advised of her progress. 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 Given her excellent clinical appearance and clinical history, I don't think she needs the procedure done on a more urgent basis. Nurys was comfortable with this plan. Thank you again for allowing me to participate in Nurys's care. I shall continue to keep you advised of her progress. 08/27/2024 Other hemorrhoids (ICD-10 - K64.8) Plan Of Treatment Pending Test Test Name Order Date Pathology 08/27/2024 Future Test Test Name Order Date COLONOSCOPY 12/03/2011 COLONOSCOPY 01/15/2018 COLONOSCOPY 02/13/2024 Insurance Providers Payer Name Payer Address Payer Phone Subscriber Number Group Number Insured Name Patient Relationship to Insured Coverage Start Date Coverage End Date MEDICARE OF [place] [address] RASHAUN ZUÑIGA [id number] NURYS RODRIGUEZ Self - patient is the insured MEDEX ATTN CLAIMS [address] [place] [address] [id number] NURYS RODRIGUEZ Self - patient is [...]
--- OUTSIDE RECORDS SUMMARY | 2024-12-15 09:08 | XMS_ITS | Clinical Summary ---
Author Organization [facility] Address [address] [place] [address] Care Team Providers Care Apparel Designer Name Role Phone Maurice, Rolo Muir MD Primary Care Provider Allergies Active Allergy Reactions Criticality Noted Date [...] Tdap) 1968 Colon Cancer Screening (Colonoscopy) 1994 Shingrix-Zoster Vaccine (1 of 2) 12/14/1999 Fall Risk Assessment 2014 Osteoporosis Screening (DEXA Scan) 2014 Pneumococcal Vaccine (1 of 1 - PCV) 2014 Influenza Vaccine (#1) 2024 RSV Adult > 60+ Yrs or Pregn ant (1 - 1-dose 75+ series) 2024 Hepatitis B Vaccines Aged Out No long er eligible based on patient's age to complete this topic RSV Ped < 20 months Aged Out No longe r eligible based on patient's age to complete this topic Care Teams Apparel Designer Relationship Specialty Start Date End Date Po, Rolo Muir MD [address] [place] [address] [address] [facility] [place] [address] PCP - General Internal Medicine 04/10/20
[2024-12-15 09:22] LABS: Appearance Urine Clear; Glucose Urine UA Negative (Negative); PH 7.0 (5.0-9.0); Specific Gravity - Urine 1.015 (1.005-1.025); UMIC TRIGGER UACC YES
[2024-12-15 09:22] LABS: Hematocrit 38.3 % (37.0-47.0); Hemoglobin 12.8 g/dl (12.0-16.0); Imm Gran Abs Auto 0.06 X10*3/uL (0.00-0.03); Imm Gran Pct Auto 0.7 % (0.0-0.4); Lymphocytes Absolute Auto 2.3 X10*3/uL (1.2-4.9); Mean Corpuscular HGB Conc 33.4 g/dl (31.0-35.0); Mean Corpuscular Hemoglobin 28.0 pg (27.0-33.0); Mean Corpuscular Volume 83.8 fL (80.0-98.0); NRBC Abs Auto 0.000 X10*3/uL (0.0-0.012); NRBC Pct Auto 0.0 /100WBC (0.0-0.2); Platelet Count 387 X10*3/uL (160-400); Red Blood Count 4.57 X10*6/uL (4.20-5.50); White Blood Count 8.1 X10*3/uL (4.8-10.8)
[2024-12-15 09:30] LABS: Hemoglobin A1C 131.4515 umol/L; Total Hemoglobin (HGBA1C) 3339.6667 umol/L
[2024-12-15 10:08] LABS: Alanine Aminotransferase 24 U/L (0-31); Albumin Level 4.5 g/dL (3.5-5.0); Alkaline Phosphatase 74 U/L (39-117); Anion Gap 12 (12-20); Aspartate Amino Transferase 38 U/L (5-31); Blood Urea Nitrogen 19 mg/dL (9-16); Calcium 9.5 mg/dL (8.4-10.2); Carbon Dioxide 28 mmol/L (22-29); Chloride 96 mmol/L (96-108); Cholesterol 208 mg/dL (<200); Estimated Glomerular Filt Rate 43; HDL Cholesterol 41 mg/dL (>40); Potassium 5.1 mmol/L (3.3-5.1); Sodium 131 mmol/L (135-145); Total Protein 7.4 g/dL (6.5-8.0); Triglycerides 153 mg/dL (<150)
[2024-12-15 10:14] LABS: Free T4 (Free Thyroxine) 1.11 ng/dL (0.71-1.85); Thyroid Stimulating Hormone 0.97 uIU/mL (0.32-4.0)
[2024-12-15 10:24] LABS: Folate 9.4 ng/mL (> or = 4.0); Vitamin B12 468 pg/mL (200-900)
== END 2024-12-15 08:41 | disposition home or self-care (01) ==
LOC: HO.LAB 08:40
PROVIDERS: PCP Internal Medicine; Visit Provider Internal Medicine
DX: E78.00 Pure hypercholesterolemia, unspecified (principal); Z13.1 Encounter for screening for diabetes mellitus
CPT/HCPCS: 36415; 80053; 80061; 81001; 82306; 82607; 82746; 83036; 84439; 84443; 85025

== ENCOUNTER 2024-12-21 08:57 | Outpatient (REF) | payer MEDICARE, SELFPAY ==
--- OUTSIDE RECORDS SUMMARY | 2023-09-16 05:10 | XMS_ITS ---
Author Organization [facility] Address [address] [facility] [address] [place] [phone] Care Team Providers Care Lean Six Sigma Black Belt Name Role Phone Rolo Richards MD Primary Care Provider Yohan Brizuela [phone] REASON FOR VISIT Patient presents today for a recall colonoscopy Encounters Encounter Location Date Provider Diagnosis [facility] [address] [facility] [address] [place] [phone] 09/16/2023 Yohan Davison Plan Of Treatment No Information Progress Notes * JEZOEYZAKI EULALIO ADOB: (74 yo F)Acc No.[id number]:09/16/2023 Progress Notes Patient: EULALIO KIM Provider: Trevin Davison MD :1950 A ge:72 Y S ex:Female Date:09/16/2023 Address:[address] [place], [place] [phone] Pcp:Rolo Richards MD Subjective: * Chief Complaints: [...] Davison MD Date: 0 09/16/2023 Generated for Printi ng/Faxing/eTransmitting on: 0 12/21/2024 10:12 AM EDT
--- OUTSIDE RECORDS SUMMARY | 2024-02-12 05:00 | XMS_ITS ---
Author Organization [facility] Address [address] [facility] [address] [place] [phone] Care Team Providers Care Garment Fitter Name Role Phone Rolo Richards MD Primary Care Provider Yohan Brizuela [phone] REASON FOR VISIT Patient presents today for a recall colonoscopy Encounters Encounter Location Date Provider Diagnosis [facility] [address] [facility] [address] [place] [phone] 02/12/2024 Yohan Davison Plan Of Treatment No Information Progress Notes * JEZOEYEPI HAINESBETH ADOB: (74 yo F)Acc No.[id number]:02/12/2024 Progress Notes Patient: EULALIO KIM Provider: Trevin Davison MD :1950 A ge:73 Y S ex:Female Date:02/12/2024 Address:[address] [place], [place] [phone] Pcp:Rolo Richards MD Subjective: * Chief Complaints: [...] 1 Generated for Printi ng/Faxing/eTransmitting on: 0 12/21/2024 10:12 AM EDT
--- OUTSIDE RECORDS SUMMARY | 2024-08-27 05:00 | XMS_ITS ---
Author Organization [facility] Address [address] [place] [address] Care Team Providers Care Service Desk Associate Name Role Phone Po Rolo CHAPMAN Primary Care Provider Yohan Brizuela [phone] REASON FOR VISIT screening,hx polyps Encounters Encounter Location Date Provider Diagnosis [facility] Outpatient [address] [place], [place] [phone] 08/27/2024 Yohan Davison Colon cancer scree christopher [...] * EULALIO RODRIGUEZ ADOB: (74 yo F)Acc No.[id number]:08/27/2024 COLON WITH MAC Patient: Kimmie LEGGETTEULALIO BANDA Provider: Trevin Davison MD :1950 A ge:73 Y S ex:Female Date:08/27/2024 Address:[address] [place], [place] [id number] Pcp:Rolo Richards MD Subjective: * Chief Complaints: [...] 08/27/2024 Generated for Keyanna rivero/Chema/Damienitting on: 0 12/21/2024 10:11 AM EDT
--- NOTE | ~2024-12-21 | MM_ITS ---
EXAMINATION: MM SCREENING DIGITAL BREAST TOMOSYNTHESIS, LEFT CLINICAL INFORMATION: Screening. Asymptomatic. Right Mastectomy. COMPARISON: Mammography: This study is compared with prior exams dating back to TECHNIQUE: Digital breast tomosynthesis is performed in both the craniocaudal and mediolateral oblique views along with computer-aided detection (CAD). Synthesized 2D images are generated from the tomosynthesis. FINDINGS: There are scattered areas of fibroglandular density (ACR BI-RADS breast composition Category b). There are no significant masses, abnormal calcifications, or other abnormalities. MM/MM tomosynthesis screening LT IMPRESSION: No mammographic evidence of malignancy. Patient states that she has a left breast pain and lump 9- 10:00 of the patient side was worked up before but symptoms still persists. Recommend clinical evaluation and if there are persistent symptoms or clinically indicated a diagnostic workup can be ordered and performed. Breast MRI could also be considered for further evaluation. Patient has a family history of breast cancer including mother and sister. No prior diagnostic left breast mammography and ultrasound is in our system for the previously palpated lump and pain 9-10 o'clock left breast. Recommend diagnostic workup at this time. ASSESSMENT: BI-RADS BI-RADS 0 - Incomplete: Needs additional Imaging. RECOMMENDATION: 1. Additional views of the left breast site of painful and palpable lump 2. Targeted ultrasound if warranted after review of the additional views. 3. Radiology department staff will contact the patient for additional imaging. Additional Imaging required This examination should not preclude the clinical evaluation of a suspicious palpable abnormality. This patient's information was entered into a reminder system with a target due date for their next mammogram. Electronically signed by: Chastity Suarez DO 12/21/2024 11:14 AM EDT
--- NOTE | ~2024-12-21 | MM_ITS ---
EXAMINATION: DXA BONE DENSITY AXIAL HISTORY: M81.0 - Age-related osteoporosis without current pathological fracture TECHNIQUE: Nearpod Dual energy absorptiometry (DEXA) of the lumbar spine, total left hip, and femoral neck was performed. COMPARISON: Comparison is made with the prior examination dated 08/08/2021. FINDINGS: The bone mineral density of the lumbar spine is 1.048 g/cm2, corresponding to a T-score of -1.1, and a Z-score of 0.4. This is indicative of osteopenia. This represents a BMD change of 4.4% compared to the prior exam. This is statistically significant. The bone mineral density of the left total hip is 0.832 g/cm2, corresponding to a T-score of -1.4, and a Z-score of 0.2. This is indicative of osteopenia. This represents a BMD change of 9.0% compared to the prior exam. This is statistically significant. The bone mineral density of the left femoral neck is 0.700 g/cm2, corresponding to a T-score of -2.4, and a Z-score of -0.7. This is indicative of osteopenia. This represents a BMD change of -2.2% compared to the prior exam. FRACTURE RISK: The FRAX index suggests a ten year probability of major osteoporotic fracture of 23.2%, and of hip fracture 6.8%. MM/XR DEXA axial skeleton IMPRESSION: Based on bone mineral density, and according to World Health Organization (WHO) criteria, the diagnosis is consistent with osteopenia. Statistically, 68% of repeat scans fall within 1 SD (+/- 0.010 g/cm2 for AP spine L1-L4) and 1 SD (+/- 0.012 g/cm2 for femur total) FRAX is a trademark of the [employer] [place] [employer], a World Health Organization (WHO) Collaborating Center. Electronically signed by: Yohan Herbert MD 12/21/2024 09:34 AM EDT
--- OUTSIDE RECORDS SUMMARY | 2024-12-21 10:12 | XMS_ITS | Clinical Summary ---
Author Organization [facility] Address [address] [place] [address] Care Team Providers Care Ap Processor Name Role Phone Maurice, Rolo Muir MD Primary Care Provider [phone] Allergies Active Allergy Reactions Criticality Noted Date [...] age to complete this topic Care Teams Ap Processor Relationship Specialty Start Date End Date Po, Rolo Muir MD [address] [place] [address] [address] [facility] [place] [address] PCP - General Internal Medicine 04/10/20
--- OUTSIDE RECORDS SUMMARY | 2024-12-21 10:12 | XMS_ITS | Patient Health Record ---
Author Organization [facility] Address [address] [place] [address] Care Team Providers Care Home Worker Name Role Phone Rolo Richards MD Primary Care Provider Yohan Brizuela [phone] Allergies Allergen (clinical drug ingredient) Drug/Non Drug Allergy documented on EMR Reaction Allergy Type Onset Date Status Sulfa Unknown Drug Allergy Active Results Component Value Reference Range Notes Pathology (Not yet reviewed by provider) Interpretation: Performing Lab:[facility], [address] [place] [id number] Notes/Report: Reason For Referral No Information Medications [...] Problem Status W/U Status Risk Notes Problem [id number] Encounter for screening for malignant neoplasm of colon (Z12.11) Active confirmed Problem [id number] Hx of adenomatous colonic polyps (Z86.010) Active confirmed Problem [id number] Pre-procedural examination (Z01.818) Active confirmed Vital Signs Blood pressure diastolic 00 mm Hg 02/13/2024 Height 61.5 in 02/13/2024 Blood pressure systolic 00 mm Hg 02/13/2024 Weight 162 lbs 02/13/2024 BMI 30.11 kg/m2 02/13/2024 Encounters Encounter Location Date Provider Diagnosis 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
--- OUTSIDE RECORDS SUMMARY | 2024-12-21 10:13 | XMS_ITS | Clinical Summary ---
Author Organization [facility] it Address [id number] [place] [id number] Care Team Providers Care Soaking Room Operator Name Role Phone Rolo Richards MD Primary Care Provider [phone] Surgical History Surgery Date Site/Laterality Comments KNEE [...] age to complete this topic Care Teams Soaking Room Operator Relationship Specialty Start Date End Date Rolo Richards MD [address] [place] [address] [address] [facility] [place] [address] PCP - General Internal Medicine 04/10/20
== END 2024-12-21 08:58 | disposition home or self-care (01) ==
LOC: HO.MAMMO 08:57
PROVIDERS: Visit Provider Internal Medicine
DX: Z12.31 Encounter for screening mammogram for malignant neoplasm of breast (principal); M81.0 Age-related osteoporosis without current pathological fracture; M85.80 Other specified disorders of bone density and structure, unspecified site
CPT/HCPCS: 77063; 77067; 77080

== ENCOUNTER → 2024-12-21 09:15 | Outpatient (BNV) | payer MEDICARE, SELFPAY | PROVIDERS: Visit Provider Radiology Diagnostic Radiology | DX: Z12.31 Encounter for screening mammogram for malignant neoplasm of breast (principal); E28.39 Other primary ovarian failure | CPT/HCPCS: 77063; 77067; 77080 ==

== ENCOUNTER 2025-02-25 | Outpatient (REF) | payer MEDICARE, SELFPAY ==
--- OUTSIDE RECORDS SUMMARY | 2025-05-05 09:07 | XMS_ITS | Clinical Summary ---
Author Organization [facility] Prior to 09/11/24 Address [address] [place] [address] Care Team Providers Care Alemite Operator Name Role Phone Rolo Richards MD Primary Care Provider [phone] Allergies Active Allergy Reactions Criticality Noted Date [...] age to complete this topic Care Teams Alemite Operator Relationship Specialty Start Date End Date Po, Rolo Muir MD [address] [place] [address] [address] [facility] [place] [address] PCP - General Internal Medicine 04/10/20
--- OUTSIDE RECORDS SUMMARY | 2025-05-05 09:07 | XMS_ITS | Clinical Summary ---
Author Organization [facility] Address [address] [place] [address] Care Team Providers Care Batteryman Name Role Phone Rolo Richards MD Primary Care Provider [phone] Surgical History Surgery Date Site/Laterality Comments KNEE [...] on file Sexual Orientation Not on file Plan of Treatment Health Maintenance Due Date Last Done Comments Colorectal Cancer Screening: Colonoscopy 1949 DTaP,Tdap,and Td Vaccines (1 - Tdap) 1968 Pneumococcal Vaccine: 50+ Ye ars (1 of 1 - PCV) 12/14/1999 Zoster Vaccines (1 of 2) 12/14/1999 Falls Risk Assessment 03/17/2022 Hepatitis C Screening 03/17/2022 Osteoporosis Screening (Bone Density Screening) 03/17/2022 Social Influencers of Health Screening 03/17/2022 COVID-19 Vaccine (1 - 2024-2 6 season) 2024 Influenza Vaccine (#1) 2024 RSV Immunization Adult Patie nts (1 - 1-dose 75+ series) 2024 Depression Screening 04/14/2025 HIB Vaccines Aged Out No longer eligi [...] age to complete this topic Care Teams Batteryman Relationship Specialty Start Date End Date Rolo Richards MD [address] [place] [address] [address] [facility] [place] [address] PCP - General Internal Medicine 04/10/20
== END 2025-02-25 00:01 | disposition home or self-care (01) ==
LOC: CF
PROVIDERS: PCP Internal Medicine; Visit Provider Internal Medicine
DX: I10 Essential (primary) hypertension (principal); E78.00 Pure hypercholesterolemia, unspecified; R73.02 Impaired glucose tolerance (oral); M85.80 Other specified disorders of bone density and structure, unspecified site; E66.9 Obesity, unspecified; R06.02 Shortness of breath; Z85.3 Personal history of malignant neoplasm of breast; Z23 Encounter for immunization
CPT/HCPCS: 90471; 90656; 99212

== ENCOUNTER 2025-02-25 09:00 | Outpatient (AMB) | payer MEDICARE, SELFPAY ==
--- OUTSIDE RECORDS SUMMARY | 2023-09-16 04:10 | XMS_ITS ---
Author Organization [facility] Address [address] [place] [phone] Care Team Providers Care Activity Leader Name Role Phone Rolo Richards MD Primary Care Provider Yohna Brizuela [phone] REASON FOR VISIT Patient presents today for a recall colonoscopy Encounters Encounter Location Date Provider Diagnosis [facility] [address] [facility] [address] [place] [phone] 09/16/2023 Yohan Davison Plan Of Treatment No Information Progress Notes * JESOLO EULALIO ADOB: (74 yo F)Acc No.[id number]:09/16/2023 Progress Notes Patient: EULALIO KIM Provider: Trevin Davison MD :1950 A ge:72 Y S ex:Female Date:09/16/2023 Address:[address] [place], [place] [id number] Pcp:Rolo Richards MD Subjective: * Chief Complaints: * 1 . Patient presents today for a recall colonoscopy. * Medical History: Objective: * Vitals: Assessment: Plan: * Treatment: * * The named appointment provid er may or may not be the originator of this progress note, and it is not deemed complete until electronically signed by the appointment provider. Sign off status: Pending * Provider: Trevin Davison MD Date: 0 09/16/2023 Generated for Aleidai ng/Fadeondreg/eTransmitting on: 04/27/2024 09:31 AM EST
[2025-02-25 09:18] VITALS: BP 138/72; PULSE 89; O2SAT 97; BMI 30.1
--- NOTE | 2025-02-25 09:18 | A.OFFPC_ITS ---
Vital Signs 02/25/25 09:18 Height 5 ft 1.5 in Weight 162 lb BMI 30.1 BP 138/72 Blood Pressure Location Lt brachial Position Sitting Pulse 89 Pulse Source Pulse Oximeter Pulse Oximetry (%) 97 Oxygen Delivery Method Room Air Intake Visit Reasons: 6 month f/u Allergies Sulfa (Sulfonamide Antibiotics) (SULFA(SULFONAMIDE ANTIBIOTICS)) Allergy (Unknown, Verified 02/25/25 09:19) Unknown amlodipine Adverse Reaction (Intermediate, Verified 02/25/25 09:19) Leg swelling lisinopril Adverse Reaction (Intermediate, Verified 02/25/25 09:19) cough losartan Adverse Reaction (Intermediate, Verified 02/25/25 09:19) swelling Medication List - Last Reconciled 02/25/25 by Rolo Richards MD cholecalciferol (vitamin D3) 25 mcg PO DAILY hydrochlorothiazide 12.5 mg PO DAILY raloxifene 60 mg PO DAILY zolpidem (Ambien) 5 mg PO BEDTIME PRN Tobacco use date assessed: 02/25/25 Fall risk assessment: No Falls in past year Last assessed Fall Risk: 02/25/25 Dental Screening Dental Screen Date: 02/25/25 Did you have a dental visit in the last 12 months?: Yes Did you have a dental problem in the last 6 months where you did not have access to dental care?: No Was dental information given to patient?: Patient has dentist [facility] Medical History History of Mohs micrographic surgery for skin cancer Osteoporosis History of chemotherapy Breast cancer screening by mammogram Alopecia Medicare annual wellness visit, initial Knee pain, right Shoulder pain, bilateral Overweight (BMI 25.0-29.9) Impaired glucose tolerance Hypercholesterolemia Osteopenia Pituitary adenoma Tubular adenoma of colon History of breast cancer Surgical History Hx of tubal ligation History of surgery History of orthopedic surgery History of cataract surgery History of colonoscopy History of arthroscopy of right knee H/O right mastectomy History of cholecystectomy Family History Father Dementia Alcoholism Mother Congenital heart disease Cancer Sister Breast cancer Sister CAD (coronary artery disease) Social History Housing: House Are you a primary residential care officer to a significant other at home: No Do you presently have visiting nurse or other home services: No Alcohol intake: current Alcohol intake frequency: holidays/special occasions only Comment: 2x a month 1-2 drinks Patient Tobacco Use Status: Former Tobacco user Tobacco use type: Cigarette Years Smoked: 27 e-Cigarette/Vaping Use: Never Used Second Hand Smoke Exposure: No Advance Directives Date on File: 05/14/21 Current occupational status: retired Cognitive needs: No Hearing needs: No Vision needs: Yes Questionnaire Thrive Questionnaire Date Thrive assessed: 08/23/24 I am a: Patient What is your living situation today?: I have a steady place to live Within the past 12 months, did the food you bought not last and you didn't have the money to get more?: Never true Within the past 12 months, did you worry whether your food would run out before you got money to buy more?: Never true Do you have trouble paying for medicines?: No Do you have trouble getting transportation to medical appointments?: No Do you have trouble paying your heating and electricity bill?: No Do you have trouble taking care of your child, family member or friend?: No Do you have trouble with day-to-day activities such as bathing, preparing meals, shopping, managing finances, etc.?: No Are you currently unemployed and looking for a job?: No Are you interested in more education?: No Please select the resources that you would like help with: None Currently or been in a relationship where the following occur: No concerns reported THRIVE Score: 0 LUCITA-7 AMB Questionnaire LUCITA-7 Date LUCITA - 7 assessed: 08/25/24 Source: Developed by Drs. Yohan Corbett, Tanya Jacobsen, Linden Aguillon and colleagues, with an educational suzan from [employer]. Physical exam (Primary Care) Vital Signs: Last Vital Signs Pulse 89 02/25/25 09:18 BP 138/72 02/25/25 09:18 Pulse Ox 97 02/25/25 09:18 Oxygen Delivery Method Room Air 02/25/25 09:18 BMI result Body Mass Index 30.1 Tobacco/Smoking Status: Tobacco use Status Tobacco use date assessed 02/25/25 02/25/25 09:19 Patient Tobacco Use Status Former Tobacco user 02/25/25 09:19 Tobacco use type Cigarette 02/25/25 09:19 e-Cigarette/Vaping Use Never Used 02/25/25 09:19 Thrive Assessment: Date of Thrive Assessment Date Thrive assessed 08/23/24 02/25/25 09:19 Currently or been in a relationship where the following occur: No concerns reported Const General: alert; No acute distress Eyes Conjunctivae: conjunctivae normal Resp Auscultation: clear to auscultation bilaterally Cardio Rate: regular rate Rhythm: regular rhythm GI Inspection: Yes normal to inspection Extrem General: Yes normal to inspection and No edema Office Procedures Flu Questionnaire Does the patient have a severe egg allergy?: No Does the patient have severe life threatening allergies?: No Does the patient have a fever or illness today?: No Has the patient ever had Guillain-Effingham Syndrome?: No Has the patient ever had any past reaction to a flu shot?: No Immunizations Fluarix [id number] (PF) 45 mcg (15 mcg x 3)/0.5 mL IM syringe Performing Provider: Rolo Richards MD [facility] Administered by: Flor Joy CMA on 02/25/25 09:27 Dose Route Admin Location Dispensed Lot Number Expiration Date [facility] Bottle Capper 0.5 mL IM Left Deltoid 0.5 mL [id number] 10/11/25 [id number] [employer] [place] VIS Given Date VIS Provided VIS Publication Date 02/25/25 Single Vaccine 24 Eligibility Eligibility Date Funding Source Not [facility] Eligible 02/25/25 Private Coding Level of Care Code Est Pt Level 4 (00342) Complex EM visit Add On G2211 Diagnoses Primary hypertension I10 Hypertension type: primary hypertension Hypercholesterolemia E78.00 Impaired glucose tolerance R73.02 Osteopenia, unspecified location M85.80 Osteopenia location: unspecified History of breast cancer Z85.3 Obesity (BMI 30.0-34.9) E66.9 SOB (shortness of breath) on exertion R06.02 Assessment & Plan Assessment & Plan (1) Hypertension: Code(s): I10 - Essential (primary) hypertension Category: Medical Qualifiers: Hypertension type: primary hypertension Qualified Code(s): I10 - Essential (primary) hypertension Plan: Continue with blood pressure medication. Decrease salt intake and exercise presently on hydrochlorothiazide 12.5 mg once a day (2) Hypercholesterolemia: Code(s): E78.00 - Pure hypercholesterolemia, unspecified Category: Medical Plan: Avoid fried foods, chicken skin, eggs, butter margarine, pastries and meat. Be it pork or beef they have a lot of cholesterol LDL goal of less than 130 and triglyceride of less than 150 (3) Impaired glucose tolerance: Code(s): R73.02 - Impaired glucose tolerance (oral) Category: Medical Plan: Decrease the amount of carbohydrate intake, pasta, bread, rice and potatoes are all sugar and that is aside from all the sweet stuff, remember that fruits are good but they are Sweet also. (4) Osteopenia: Code(s): M85.80 - Other specified disorders of bone density and structure, unspecified site Category: Medical Qualifiers: Osteopenia location: unspecified Qualified Code(s): M85.80 - Other specified disorders of bone density and structure, unspecified site Plan: On raloxifene once a day (5) History of breast cancer: Comment: Right breast cancer 2000 Right modified radical mastectomy Dr. freire chemotherapy no tamoxifen due to bleeding Dr. Macdonald Code(s): Z85.3 - Personal history of malignant neoplasm of breast Category: Medical Plan: Mammogram up-to-date but needs additional. (6) Obesity (BMI 30.0-34.9): Code(s): E66.9 - Obesity, unspecified Category: Medical Plan: Diet and exercise (7) SOB (shortness of breath) on exertion: Code(s): R06.02 - Shortness of breath Category: Medical Plan History of Present Illness The patient is a 74-year-old obese female presenting for a follow-up visit and review of recent laboratory results. She has a history of hypertension, managed with hydrochlorothiazide 12.5 mg once a day, with recent blood pressure readings noted to be good. The patient has a history of hypercholesterolemia and impaired glucose tolerance. Recent blood work from December 15 showed that her cholesterol is elevated, with a total cholesterol of 208, LDL of 137, and triglycerides of 153. Her hemoglobin A1c has increased to 5.8% from previous values of 5.5-5.6%, and her fasting glucose was 112. She acknowledges that her diet, including a fondness for chocolate, likely contributes to these changes. Other lab findings include mild hyponatremia with a sodium of 131, possibly related to hydrochlorothiazide use or high fluid intake, and a slight increase in creatinine to 1.21, though still within normal limits. Liver function tests were also mildly elevated. Her blood count, vitamin levels (B12, D), folic acid, and thyroid function are all normal. Her history includes osteopenia, identified on a bone density scan in December 2024 which showed significant changes in the hip. She has a past history of wrist and nose fractures due to a fall on cement, which she does not consider to be fragility fractures. She has a history of breast cancer with her last mammogram in December 2024 noted as incomplete and requiring additional views. The patient is declining the recommended follow-up imaging at this time. The patient reports a new complaint of being out of breath with activity, such as climbing stairs, but denies chest pain or dyspnea at rest. She has a family history of heart problems affecting her mother, father, and sister, and is a former smoker. She underwent a stress test about 1.5 to 2 years ago, which was stopped due to severe shortness of breath. Health maintenance includes a Cologuard test in August 2024, completion of the two- dose shingles vaccine series, an up-to-date pneumonia vaccine, and a flu shot received today. Current medications include vitamin D, duloxetine, and hydrochlorothiazide, with rare use of zolpidem for sleep. Health Maintenance The patient's mammogram from December 2024 requires additional follow-up views. She is declining further imaging at this time due to a previous similar experience that was ultimately benign, but this will be reassessed next year. She has received her flu vaccine and is up to date on her shingles and pneumonia vaccinations. Social History - Substance Use: Patient is a former smoker, having quit many years ago. - Nutritional Intake: Reports drinking a lot of fluids. - Diet: Acknowledges diet contributes to elevated glucose and cholesterol; reports a fondness for various types of chocolate. - Functional Status: Reports feeling tired all the time and experiencing shortness of breath with activity, such as climbing stairs. Review of Systems - Constitutional: Reports feeling tired all the time. - Respiratory: Reports dyspnea on exertion, such as when climbing stairs or doing laundry. - Cardiovascular: Denies chest pain and dyspnea at rest. - Musculoskeletal: Reports using topical Icy Hot on her knees for pain. Physical Exam - Vitals: Blood pressure is good. Results - Labs (from December 15): - CBC: Normal blood count, not anemic, normal white blood cell and platelet counts. - Comprehensive Metabolic Panel: Sodium 131 mEq/L (mildly low), potassium is fine, creatinine increased to 1.21 but is still normal, fasting glucose 112 mg/dL, and liver function mildly elevated. - Hemoglobin A1c: 5.8%. - Lipid Panel: Total cholesterol 208 mg/dL, bad cholesterol (LDL) 137 mg/dL, triglycerides 153 mg/dL. - Other labs: Vitamin B12, vitamin D, folic acid, and thyroid function are fine. - Imaging: - Bone Density Scan (December 2024): Showed osteopenia with significant changes in the hip. - Mammogram (December 2024): Incomplete, needs additional views. - Chest CT (March of prior year): Follow-up scan was performed. - Screening Tests: - Cologuard Test (August 2024): Done. Plan Patient was informed and verbally consented to the use of an ambient scribe for clinic note documentation during this visit. 1. Dyspnea On Exertion The patient reports new-onset shortness of breath with activity, which is conc erning given her family history of heart disease, past smoking history, and inability to complete a prior stress test. To differentiate between cardiac and pulmonary causes, a referral to cardiology will be placed and a lung function test will be ordered. 2. Hyperlipidemia Recent labs show elevated total cholesterol (208), LDL (137), and triglycerides (153), which are trending upwards. The patient was counseled on the importance of diet in managing these levels. Will continue to monitor labs. 3. Prediabetes The patient's hemoglobin A1c has increased to 5.8% and fasting glucose is 112, indicating progression of prediabetes. She was advised that while this does not meet the criteria for diabetes, it is important to be mindful of her diet. Will continue to monitor her status. 4. Essential (Primary) Hypertension The patient's blood pressure is well-controlled on her current regimen of hydrochlorothiazide 12.5 mg daily. A new prescription for a 90-day supply with three refills has been sent to [facility]. 5. Abnormal Laboratory Findings Recent labs show mild hyponatremia and a slight rise in creatinine, though still within the normal range. The hyponatremia may be related to hydrochlorothiazide or high fluid intake. The patient was advised to avoid NSAIDs like ibuprofen to protect her kidneys; Tylenol is acceptable for pain. These findings will be monitored. Discussion Notes I reviewed the patient's recent blood work from December 15, noting several upward trends. I explained that her sodium was slightly low and her creatinine had risen slightly but was still normal, and advised her to avoid NSAIDs like ibuprofen. I discussed that her hemoglobin A1c of 5.8% and fasting glucose of 112 indicate prediabetes, clarifying that this does not require medication but warrants dietary mindfulness. Similarly, I noted the increase in her cholesterol and triglyceride levels and we discussed diet as a contributing factor. We discussed her new symptom of shortness of breath on exertion. Given her family history of heart disease and previous inability to complete a stress test, I recommended a cardiology referral and a lung function test to i nvestigate further, to which she agreed. Regarding her incomplete mammogram, the patient stated her decision to decline follow-up imaging at this time, citing a similar past experience, and we agreed to reassess next year. I addressed her medication needs by sending a one-year prescription for hydrochlorothiazide to her mail-order pharmacy. We confirmed she is up-to-date on vaccinations. I advised her to proceed with the scheduled workup for her shortness of breath and to follow up with any new concerns. Patient Instructions - Continue taking your medications as prescribed, including hydrochlorothiazide for blood pressure. - Avoid taking [id number] pain medications like Ibuprofen (Advil, Motrin) and naproxen (Aleve), as they can affect your kidneys. - You may take Tylenol (acetaminophen) for pain as needed. - Pay attention to your diet, especially regarding sugars and chocolates, to help manage your blood sugar and cholesterol levels. - We will be referring you to a erosion control specialist (human resources operations specialist) to evaluate your shortness of breath. - We will also order a lung function test to check your breathing. - Please let us know if your shortness of breath, fatigue, or any other symptoms worsen. Orders: Orders Influenza [id number] Immunization Today Z23 - Encounter for immunization Medications: Refilled hydrochlorothiazide 12.5 mg PO DAILY 90 tabs 3RF
--- OUTSIDE RECORDS SUMMARY | 2025-02-25 09:31 | XMS_ITS | Clinical Summary ---
Author Organization [facility] Address [address] [place] [address] Care Team Providers Care Speeder Worker Name Role Phone Maurice, Rolo Muir MD Primary Care Provider [phone] Allergies Active Allergy Reactions Criticality Noted Date [...] age to complete this topic Care Teams Speeder Worker Relationship Specialty Start Date End Date Po, Rolo Muir MD [address] [place] [address] [address] [facility] [place] [address] PCP - General Internal Medicine 04/10/20
--- OUTSIDE RECORDS SUMMARY | 2025-02-25 09:31 | XMS_ITS | Patient Health Record ---
Author Organization [facility] Address [address] [place] [address] Care Team Providers Care Twister Frame Tender Name Role Phone Rolo Richards MD Primary Care Provider Yohan Brizuela [phone] Allergies Allergen (clinical drug ingredient) Drug/Non Drug Allergy documented on EMR Reaction Allergy Type Onset Date Status Sulfa Unknown Drug Allergy Active Results Component Value Reference Range Notes Pathology (Not yet reviewed by provider) Interpretation: Performing Lab:[facility], [address] [place] [id number] Notes/Report: Reason For Referral No Information Medications Medication SIG (Take, Route, Fr equency, Duration) Notes Start Date End Date Status Raloxifene HCl 60 MG Oral; Duration: 90 Active Vitamin D3 Active Lisinopril 30 MG Oral; Duration: 90 Active Social History Tobacco Use: Social History Observation [...] Problem Status W/U Status Risk Notes Problem Screening for malignant neoplasm of colon (116188638) Encounter for screening for malignant neoplasm of colon (Z12.11) Active confirmed Problem History of adenomatous polyp of colon (619765709) Hx of adenomatous colonic polyps (Z86.010) Active confirmed Problem Pre-procedure evaluation check (852255802) Pre-procedural examination (Z01.818) Active confirmed Encounters Encounter Location Date Provider Diagnosis [facility] [address] [place], [place] [id number] 08/27/2024 Yohan Dvaison Colon cancer rufuse christopher Z12.11 ; Benign neoplasm of rectum [...] Date MEDICARE OF [place] [address] [place] [address] [id number] EULALIO RODRIGUEZ Self - patient is the insured [employer] ATT[employer] CLAIMS [address] [place] [address] [phone] [id number] EULALIO RODRIGUEZ Self - patient is the insured Medical (General) History Medical History History ICD Code Hyperlipidemia--off meds Hx of a serrated adenoma and tubular adenoma removed in 2004 and 2011, respectively. 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
--- OUTSIDE RECORDS SUMMARY | 2025-02-25 09:32 | XMS_ITS | Clinical Summary ---
Author Organization [facility] Address [address] [place] [address] Care Team Providers Care Gear Changer Name Role Phone Rolo Richards MD Primary Care Provider [phone] Surgical History Surgery Date Site/Laterality Comments KNEE [...] Years Used Date Smoking Tobacco: Former Cigarettes 0 Q uit: 04/14/1996 Smokeless Tobacco: Never Alcohol [...] Health Maintenance Due Date Last Done Comments Colorectal Cancer Screening: Colonoscopy 1949 DTaP,Tdap,and Td Vaccines (1 - Tdap) 1968 Pneumococcal Vaccine: 50+ Ye ars (1 of 1 - PCV) 12/14/1999 Zoster Vaccines (1 of 2) 12/14/1999 Falls Risk Assessment 03/17/2022 Hepatitis C Screening 03/17/2022 Osteoporosis Screening (Bone Density Screening) 03/17/2022 Social Influencers of Health Screening 03/17/2022 Depression Screening 04/14/2024 COVID-19 Vaccine ( - 2024-2 6 season) 2024 Influenza Vaccine (#1) 2024 RSV [...] age to complete this topic Care Teams Gear Changer Relationship Specialty Start Date End Date Rolo Richards MD [address] [place] [address] [address] [facility] [place] [address] PCP - General Internal Medicine 04/10/20
== END 2025-02-25 09:56 | disposition home or self-care (01) ==
LOC: HO.HMCH 09:01
PROVIDERS: PCP Internal Medicine; Visit Provider Internal Medicine
DX: I10 Essential (primary) hypertension (principal); E78.00 Pure hypercholesterolemia, unspecified; E66.9 Obesity, unspecified; Z68.30 Body mass index [BMI] 30.0-30.9, adult; R73.02 Impaired glucose tolerance (oral); M85.80 Other specified disorders of bone density and structure, unspecified site; Z85.3 Personal history of malignant neoplasm of breast; R06.02 Shortness of breath; Z23 Encounter for immunization